=== PATIENT | male | born 1955 | race Caucasian/White ===

== ENCOUNTER 2016-12-25 17:32 | Emergency (ER) | payer OTHER ==
[~2016-12-25] VITALS: Ht 185.4 cm; Wt 78.0 kg
[~2016-12-25 17:32] MED LIST: DICL-201 PO; EPP3 IM; SULF500T36 PO
[2016-12-25 17:36] VITALS: TEMP 36.9; Ht 185.4 cm; Wt 78.0 kg
[2016-12-25] MEDS ORDERED: LIDOCAINE/PRILOCAINE 2.5% EA CRM EXT ONE (18:00)
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
--- NOTE | 2016-12-25 18:46 | DIAGNOSTIC IMAGING REPORT ---
LEFT WRIST MIN 3 VIEWS ROUTINE CLINICAL HISTORY: Left wrist pain COMPARISON: None. DISCUSSION: There is a severe deformity of the wrist. There is anterior and ulnar subluxation of the carpal bones with respect to the radius. The lunate is positioned anterior and proximal to the radial articular surface.. The age of this deformity is unclear from the provided images. Clinical correlation will be necessary. Erosive changes involving the radial articular surface and subtle radial ulnar joint. IMPRESSION: Severe deformity of the wrist with anterior and ulnar subluxation of the carpal bones with respect to the radius and ulna. The lunate is positioned anterior and proximal to the radial articular surface. The chronicity of this deformity is not known and clinical correlation will be necessary. Electronically signed by: Rishi Corey M.D. 12/25/2016 6:45 PM Dictated Date/Time: 12/25/2016 6:41 PM
[2016-12-25 18:59] LABS: ISTAT CREATININE 0.7 mg/dl (0.6-1.3); ISTAT HEMOGLOBIN 13.3 g/dl (14.0-18.0); ISTAT IONIZED CALCIUM 1.2 mmol/l (1.12-1.32)
[2016-12-25 19:03] LABS: BASO % 0.2 %; BASO ABS # 0.01 K/uL (0-0.2); COMPLETE YES; EOS % 2.6 %; HEMATOCRIT 39.3 % (42-52); LYMPH % 28.7 %; LYMPH ABS # 1.44 K/uL (1.2-3.4); MEAN CELL VOLUME 92.7 fL (80-100); MEAN CORPUSCULAR HEMOGLOBIN 32.3 pg (25-34); MEAN CORPUSCULAR HGB CONC 34.9 g/dl (32-36); MEAN PLATELET VOLUME 8.7 fL (7.4-10.4); MONO % 9.4 %; NEUT % 59.1 %; PLATELET COUNT 173 K/uL (130-400); RED BLOOD COUNT 4.24 M/uL (4.7-6.1); WHITE BLOOD COUNT 5.02 K/uL (4.8-10.8)
[2016-12-25] MEDS ORDERED: ACET1TAB84 PO (19:07)
[2016-12-25] MEDS ORDERED: B-CO1CAP17 PO (19:07)
[2016-12-25] MEDS ORDERED: FERR1TAB23 PO (19:07)
[2016-12-25] MEDS ORDERED: EPP3/2 IM (19:07)
[2016-12-25] MEDS ORDERED: FLAXOIL2 PO (19:07)
[2016-12-25] MEDS ORDERED: SULF500T8 PO (19:07)
[2016-12-25] MEDS ORDERED: OMEP40CA41 PO (19:07)
[2016-12-25] MEDS ORDERED: VITA400C3 PO (19:10)
[2016-12-25] MEDS ORDERED: CALC500T72 PO (19:10)
[2016-12-25] MEDS ORDERED: CHOL100027 PO (19:10)
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
[2016-12-25 19:30] LABS: BUN/CREATININE RATIO 17.4 (10-20); CALCIUM 8.7 mg/dl (8.5-10.1); CREATININE 0.72 mg/dl (0.60-1.40); POTASSIUM 4.1 mmol/L (3.5-5.1)
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
[2016-12-25 21:15] VITALS: BP 111/71; PULSE 80; O2SAT 98
== END 2016-12-25 21:17 | disposition home or self-care (01) ==
LOC: C.EDB 17:34
DX: S63.502A Unspecified sprain of left wrist, initial encounter (principal); S06.0X0A Concussion without loss of consciousness, initial encounter; S20.219A Contusion of unspecified front wall of thorax, initial encounter; Y04.8XXA Assault by other bodily force, initial encounter; Y92.89 Other specified places as the place of occurrence of the external cause; D64.9 Anemia, unspecified; M06.9 Rheumatoid arthritis, unspecified; Z79.899 Other long term (current) drug therapy

== ENCOUNTER → 2017-05-03 | Outpatient (CLI) | payer OTHER ==
[~2017-05-03] MED LIST changes: +ACET1TAB84 PO; +B-CO1CAP17 PO; +CALC500T72 PO; +CHOL100027 PO; -DICL-201 PO; -EPP3 IM; +EPP3/2 IM; +FERR1TAB23 PO; +FLAXOIL2 PO; +OMEP40CA41 PO; -SULF500T36 PO; +SULF500T8 PO; +VITA400C3 PO
[2017-05-03 12:24] LABS: BASO % 0.4 %; BASO ABS # 0.02 K/uL (0-0.2); COMPLETE YES; EOS % 2.1 %; HEMATOCRIT 40.3 % (42-52); IG% 0.2 %; LYMPH % 24.4 %; LYMPH ABS # 1.27 K/uL (1.2-3.4); MEAN CELL VOLUME 93.7 fL (80-100); MEAN CORPUSCULAR HGB CONC 35.2 g/dl (32-36); MEAN PLATELET VOLUME 8.9 fL (7.4-10.4); MONO % 10.2 %; NEUT % 62.7 %; PLATELET COUNT 181 K/uL (130-400); WHITE BLOOD COUNT 5.21 K/uL (4.8-10.8)
[2017-05-03 12:47] LABS: ALT/SGPT 31 U/L (12-78); BLOOD UREA NITROGEN 8 mg/dl (7-18); BUN/CREATININE RATIO 12.6 (10-20); CALCIUM 8.8 mg/dl (8.5-10.1); CARBON DIOXIDE 25 mmol/L (21-32); CHLORIDE 102 mmol/L (98-107); CREATININE 0.64 mg/dl (0.60-1.40); GLUCOSE 98 mg/dl (70-99); POTASSIUM 4.3 mmol/L (3.5-5.1); SODIUM 133 mmol/L (136-145)
[2017-05-03 12:57] LABS: ALB/GLOB RATIO 1.1 (0.9-2); ALKALINE PHOSPHATASE 69 U/L (45-117); AST/SGOT 24 U/L (15-37)
== END | disposition home or self-care (01) ==
LOC: C.LAB1850 09:24
PROVIDERS: ATTEND Internal Medicine
DX: K26.9 Duodenal ulcer, unspecified as acute or chronic, without hemorrhage or perforation (principal); M06.9 Rheumatoid arthritis, unspecified; E55.9 Vitamin D deficiency, unspecified; Z11.59 Encounter for screening for other viral diseases

== ENCOUNTER → 2017-10-03 | Outpatient (CLI) | payer OTHER ==
[2017-10-03 17:21] LABS: BASO % 0.8 %; BASO ABS # 0.05 K/uL (0-0.2); EOS % 3.2 %; EOS ABS # 0.19 K/uL (0-0.5); HEMATOCRIT 36.5 % (42-52); HEMOGLOBIN 12.3 g/dL (14.0-18.0); IG# 0.02 K/uL (0.00-0.02); LYMPH % 33.1 %; LYMPH ABS # 1.96 K/uL (1.2-3.4); MEAN CELL VOLUME 94.6 fL (80-100); MEAN CORPUSCULAR HEMOGLOBIN 31.9 pg (25-34); MEAN CORPUSCULAR HGB CONC 33.7 g/dl (32-36); MEAN PLATELET VOLUME 8.6 fL (7.4-10.4); MONO % 8.8 %; MONO ABS # 0.52 K/uL (0.11-0.59); NEUT % 53.8 %; NEUT ABS # 3.19 K/uL (1.4-6.5); PLATELET COUNT 222 K/uL (130-400); RED CELL DISTRIBUTION WIDTH CV 12.8 % (11.5-14.5); RED CELL DISTRIBUTION WIDTH SD 44.3 fL (36.4-46.3); WHITE BLOOD COUNT 5.93 K/uL (4.8-10.8)
[2017-10-03 17:43] LABS: ALBUMIN 3.3 gm/dl (3.4-5.0); ALT/SGPT 26 U/L (12-78); AST/SGOT 17 U/L (15-37); BLOOD UREA NITROGEN 11 mg/dl (7-18); CALCIUM 9.1 mg/dl (8.5-10.1); CARBON DIOXIDE 26 mmol/L (21-32); CREATININE 0.76 mg/dl (0.60-1.40); GLUCOSE 100 mg/dl (70-99); POTASSIUM 4.2 mmol/L (3.5-5.1); SODIUM 137 mmol/L (136-145)
[2017-10-03 17:52] LABS: ALKALINE PHOSPHATASE 82 U/L (45-117); TRANSFERRIN 211 mg/dl (200-360)
== END | disposition home or self-care (01) ==
LOC: C.LAB1850 15:19
PROVIDERS: ATTEND Internal Medicine
DX: D64.9 Anemia, unspecified (principal); E55.9 Vitamin D deficiency, unspecified; M06.9 Rheumatoid arthritis, unspecified

== ENCOUNTER 2024-07-16 18:48 | Inpatient (IN) ==
--- NOTE | 2024-07-16 19:19 | Emergency Department Note ---
Impression & Plan Syncope and collapse, SVT (supraventricular tachycardia), Acute hyponatremia, Elevated lactic acid level ED Provider Note HISTORY OF PRESENT ILLNESS: Patient is a 69-year-old male presenting after syncopal episode. Patient reports that he stood up to drink some water this evening when he felt very lightheaded like he was going to pass out. He reports that he stumbled into a chair and then slid to the ground, landing on his right hip. He states he was able to crawl to the phone to call 911. He denies any chest pain or shortness of breath. Denies losing consciousness. Denies striking his head or loss of consciousness. He states he has been having a "flareup" of his rheumatoid arthritis. He is not on any anticoagulation or antiplatelet therapies. Denies recent nausea, vomiting or diarrhea. Denies any fevers. ROS: as above PHYSICAL EXAM: Constitutional: Patient appears in no acute distress. HENT: Head: Normocephalic and atraumatic. Eyes: EOMI, PERRL Mouth/Throat: Mucous membranes moist. Neck: Trachea midline. Neck supple. Cardiovascular: Tachycardic with regular rhythm. No murmurs, rubs or gallops. Intact distal pulses. Pulmonary/Chest: No respiratory distress. Breath sounds clear and equal bilaterally. No wheezes or rales. Abdominal: Abdomen soft, no tenderness, rebound or guarding. Musculoskeletal: No edema, tenderness or deformity noted. Skin: Warm and dry. No rash, erythema, pallor or cyanosis Psychiatric: Appropriate mood and affect for situation. Neurological: Alert and keenly responsive. CN II-XII grossly intact MDM: - Vitals signs showed hypotension and tachycardia. - History obtained via patient. History as above. - 2 IVs were placed and patient was placed on practice billing associate with cardioversion pads in place. EKG obtained at 1905 interpreted by myself showed supraventricular tachycardia with a rate of 156 bpm. QT 286. No acute ischemic changes. I did discuss with the patient that he is hypotensive and tachycardic and it is indicated that he be electrically cardioverted. However, the patient did not wish to have IV ketamine for sedation or cardioversion at this time. He did request that we attempt chemical cardioversion with adenosine. Repeat blood pressure before adenosine administration was 97/62. Patient is alert and oriented and mentating well. He was given 6 mg of IV adenosine with no change in his persistent tachycardia. He was given a dose of 12 mg of adenosine and he cardioverted to normal sinus rhythm. Repeat EKG obtained at 2009 interpreted by myself showed normal sinus rhythm. Rate tachycardic at 111 bpm. QT 308. No acute ischemic changes. - Chronic conditions affecting care: rheumatoid arthritis; anemia - Differential diagnoses include, but are not limited to: Dysrhythmia; electrolyte abnormality; sepsis; UTI; pneumonia; viral syndrome - Order placed for continuous cardiac monitoring. At this time, monitor showed rate of 155 bpm with regular rhythm, per my interpretation. - External medical records reviewed. Primary care visit note dated 05/26/2024 was reviewed. Patient follows in their clinic for anemia and his other chronic medical problems. - Laboratory workup interpreted by myself showed leukocytosis (WBC 10.82); normal PT/INR; normal lactate; hyponatremia (Na 125); elevated lactate (2.5); normal troponin; normal CK; normal lipase; normal procalcitonin; elevated TSH with normal T4 - CXR negative for pneumonia, per my interpretation. - Viral respiratory panel negative - Blood cultures obtained - UA ordered - Patient's syncope may be secondary to his dysrhythmia of SVT. However, he is also hyponatremic. Will admit to hospital service for further evaluation. - Discussion was had with piano case and bench assembler about patient's case and need for admission - Hospitalist, Dr. Goldstein, consulted for admission [facility]. I have personally spent 61 minutes of critical care time in the direct management of this patient. This includes bedside care, interpretation of diagnostic studies, and testing, discussion with consultants, patient, and family members, and other required patient management activities. This 61 minutes is in excess of all separately billable procedures. ASSESSMENT AND PLAN: Diagnosis: syncope and collapse; SVT; acute hyponatremia; elevated lactic acid Plan: admit Past Med/Surg History Problem List (Updated 07/16/24 @ 22:12 by Phylicia Hope MD) Elevated lactic acid level (Acute) Acute hyponatremia (Acute) SVT (supraventricular tachycardia) (Acute) Syncope and collapse (Acute) Sensorineural hearing loss (SNHL) of both ears Rash, skin Health care maintenance Hyperglycemia Deformity of left ankle joint Anemia (Acute) Anxiety (Acute) Colon cancer screening (Acute) Decreased hearing (Acute) History of duodenal ulcer (Acute) History of upper gastrointestinal hemorrhage (Acute) Rheumatoid arthritis (Acute) Vitamin D deficiency disease (Acute) Medical History Encounter for screening laboratory testing for COVID-19 virus Left ankle pain Foreign body in ear Otitis externa Duodenal ulcer History of duodenal ulcer Anxiety Left wrist sprain GI bleed Concussion Anemia Rheumatoid arthritis Surgical History S/P tooth extraction S/P appendectomy Family History Mother Diabetes Hypertension Stroke Father Rheumatic arteritis Neoplasm of esophagus Sister Allergy Social History Smoking Status: Never smoker Hx Alcohol Use: No Hx Substance Use: No marital status: Single Current Living Situation: Alone current occupational status: retired Feels Safe at Home: Yes Seatbelt Use: always Allergies Allergies Allergy/AdvReac Type Severity Reaction Status Date / Time Corticosteroids Allergy Mild ANAPHYLAXIS Verified 05/26/24 13:50 (Glucocorticoids) wheat Allergy Mild ANAPHYLAXIS Verified 05/26/24 13:50 orange flavor Allergy Unknown Verified 05/26/24 13:50 NSAIDS (Non-Steroidal AdvReac Intermediate Verified 06/30/24 11:39 Anti-Inflamma BEES Allergy Mild ANAPHYLAXIS Uncoded 05/26/24 13:50 SOY Allergy Mild ANAPHYLAXIS Uncoded 05/26/24 13:50 [place] Oil OIL Allergy Unknown Uncoded 05/26/24 13:50 Home Meds Home Medications Medication Instructions Recorded Confirmed ascorbate calcium (vitamin C) 500 1 gm PO DAILY 03/01/19 05/26/24 mg tablet cholecalciferol (vitamin D3) 50 6,000 units PO DAILY 03/01/19 05/26/24 mcg (2,000 unit) capsule ferrous sulfate 325 mg (65 mg 650 mg PO DAILY 03/01/19 05/26/24 iron) tablet flaxseed oil 15 - 45 ml miscellaneous DAILY 03/01/19 05/26/24 multivitamin (Daily Multi-Vitamin 1 tab PO DAILY 03/01/19 05/26/24 tablet) vitamin B complex (B 2 tab PO DAILY 03/01/19 05/26/24 Complex-Vitamin B12 tablet) vitamin E (dl, acetate) 180 mg 400 units PO DAILY 03/01/19 05/26/24 (400 unit) capsule chlorophyllin-alfalfa 20 mg-100 mg tab PO BID 03/12/23 05/26/24 tablet (Chlorophyll (with alfalfa)) Previous Rx's Medication Instructions Recorded epinephrine 0.3 mg/0.3 mL 0.3 mg (0.3 mL) IM UD PRN 11/06/22 injection, auto-injector (EpiPen) anaphylaxis #2 ea lidocaine-prilocaine 2.5 %-2.5 % 1 applic topical .COMPLEX PRN for 07/16/24 topical cream injection site, blood sugar fingersticks #30 grams sulfasalazine 500 mg tablet 0.5 g PO BID #60 tabs 07/16/24 Results & Data (ED) Vital Signs Vital Signs - 24 hr 07/16/24 18:59 07/16/24 19:36 07/16/24 19:42 Temperature 37.2 C Temperature Source Oral Pulse Rate 159 H 157 H Pulse Rate [Apical] 153 H Respiratory Rate 18 18 Respiratory Effort / Characteristics Non-Labored Spontaneous Blood Pressure 85/69 L Blood Pressure [Right Arm] 87/72 L Blood Pressure Mean 74 Blood Pressure Mean [Right Arm] 77 Blood Pressure Position Lying Blood Pressure Position [Right Arm] Lying Pulse Oximetry 97 98 Oxygen Delivery Method Room Air Room Air Oxygen Flow Rate Sepsis Recent Fever Within 48 Hours No Sepsis New/Unexplained Change in Mental Status No Sepsis Action Taken by Nursing Physician Notified 07/16/24 19:42 07/16/24 19:42 07/16/24 20:09 Temperature Temperature Source Pulse Rate 157 H 123 H Pulse Rate [Apical] Respiratory Rate 18 Respiratory Effort / Characteristics Blood Pressure Blood Pressure [Right Arm] Blood Pressure Mean Blood Pressure Mean [Right Arm] Blood Pressure Position Blood Pressure Position [Right Arm] Pulse Oximetry 97 97 Oxygen Delivery Method Room Air Room Air Oxygen Flow Rate Sepsis Recent Fever Within 48 Hours Sepsis New/Unexplained Change in Mental Status Sepsis Action Taken by Nursing 07/16/24 20:17 07/16/24 20:30 07/16/24 22:00 Temperature Temperature Source Pulse Rate 101 H Pulse Rate [Apical] 102 H 95 H Respiratory Rate 18 18 Respiratory Effort / Characteristics Non-Labored Spontaneous Non-Labored Spontaneous Blood Pressure Blood Pressure [Right Arm] 94/74 L 99/64 L Blood Pressure Mean Blood Pressure Mean [Right Arm] 80 75 Blood Pressure Position Blood Pressure Position [Right Arm] Lying Lying Pulse Oximetry 97 99 Oxygen Delivery Method Nasal Cannula Room Air Oxygen Flow Rate 2 Sepsis Recent Fever Within 48 Hours Sepsis New/Unexplained Change in Mental Status Sepsis Action Taken by Nursing Laboratory Data 07/16/24 19:12 07/16/24 19:12 Lab Results 07/16/24 07/16/24 07/16/24 Range/Units 19:12 19:19 21:42 WBC 10.82 H (4.8-10.8) K/ul RBC 4.13 L (4.70-6.10) M/uL Hgb 11.9 L (14.0-18.0) g/dl POC Hgb 12.2 L (14.0-18.0) g/dl Hct 35.8 L (42.0-52.0) % POC Hct 36 L (42-52) % MCV 86.7 (80.0-100.0) fL MCH 28.8 (25.0-34.0) pg MCHC 33.2 (32.0-36.0) g/dL RDW Std Deviation 41.1 (36.4-46.3) fL RDW Coeff of Carolyn 13.1 (11.5-14.5) % Plt Count 302 (130-400) K/uL MPV 8.0 L (9.4-12.4) fL Immature Gran % (Auto) 0.6 % Neut % (Auto) 82.5 % Lymph % (Auto) 8.5 % Dixon % (Auto) 7.2 % Eos % (Auto) 0.9 % Baso % (Auto) 0.3 % Neut # (Auto) 8.93 H (1.40-6.50) K/uL Lymph # (Auto) 0.92 L (1.20-3.40) K/uL Dixon # (Auto) 0.78 H (0.11-0.59) K/uL Eos # (Auto) 0.10 (0.00-0.50) K/uL Baso # (Auto) 0.03 (0.00-0.20) K/uL Immature Gran # (Auto) 0.06 (0.01-0.20) K/uL PT 10.3 (9.0-12.0) Seconds INR 0.9 (0.9-1.1) APTT 30 (21-31) Seconds PTT Ratio 1.1 POC Sodium 124 L (135-144) mmol/L Sodium 125 L (136-145) mmol/L POC Potassium 4.3 (3.3-5.0) mmol/L Potassium 4.3 (3.5-5.1) mmol/L POC Chloride 90 L (101-112) mmol/L Chloride 92 L (98-107) mmol/L Carbon Dioxide 23 (21-32) mmol/L POC Total CO2 22 L (24-31) mmol/L Anion Gap 10 (3-11) POC Anion Gap 18.0 (16-25) mmol/L POC BUN 5 L (7-18) mg/dl BUN 7 (6-23) mg/dl Creatinine 0.65 (0.6-1.4) mg/dl POC Creatinine 0.7 (0.6-1.3) mg/dl Est Cr Clr Drug Dosing 116.1 ml/min eGFR 101.37 BUN/Creatinine Ratio 10.8 (10-20) Glucose 154 H (70-99(Fasting)) mg/dl POC Glucose (other) 150 H (70-99) mg/dl Lactate 2.5 H* 1.3 (0.4-2.0) mmol/L Calcium 8.7 (8.6-10.3) mg/dl POC Ioniz Calcium Evi 1.10 L (1.12-1.32) mmol/l Magnesium 1.8 (1.7-2.4) mg/dl Total Bilirubin 0.3 (0.2-1.0) mg/dl AST 24 (13-39) U/L ALT 20 (7-52) U/L Alkaline Phosphatase 67 (34-104) U/L Total Creatine Kinase 56 (30-223) U/L Troponin I High Sens 18.4 (0-20) pg/ml Total Protein 6.2 (6.0-8.3) gm/dl Albumin 3.2 L (3.4-5.0) gm/dl Globulin 3.0 (2.5-4.0) gm/dl Albumin/Globulin Ratio 1.1 (0.9-2) Lipase 19 (11-82) U/L Procalcitonin 0.03 (0-0.5) ng/ml TSH 4.764 H (0.300-4.500) uIu/ml Free T4 1.18 (0.61-1.60) ng/dl Adenovirus (PCR) Not Detected (NotDetected) B. pertussis DNA (PCR) Not Detected (NotDetected) B.parapertussis DNA PCR Not Detected (NotDetected) C. pneumoniae DNA (PCR) Not Detected (NotDetected) Coronavirus OC43 (PCR) Not Detected (NotDetected) Coronavirus HKU1 (PCR) Not Detected (NotDetected) Coronavirus 229E (PCR) Not Detected (NotDetected) SARS-CoV-2 (PCR) Not Detected (NotDetected) Coronavirus NL63 (PCR) Not Detected (NotDetected) Human Metapneumovir PCR Not Detected (NotDetected) Influenza Type A (PCR) Not Detected (NotDetected) Influenza Type B (PCR) Not Detected (NotDetected) M. pneumoniae (PCR) Not Detected (NotDetected) Parainfluenza 1 (PCR) Not Detected (NotDetected) Parainfluenza 2 (PCR) Not Detected (NotDetected) Parainfluenza 3 (PCR) Not Detected (NotDetected) Parainfluenza 4 (PCR) Not Detected (NotDetected) RSV (PCR) Not Detected (NotDetected) Entero/Rhino (PCR) Not Detected (NotDetected) Administered Medications Discontinued Medications Adenosine (Adenosine Iv Soln 3 Mg/Ml 2 Ml Vial) Confirm Administered Dose 18 mg IV .STK-MED ONE Stop: 07/16/24 20:03 Last Admin: 07/16/24 21:48 Dose: Not Given Documented By: PHUONG Adenosine (Adenosine Iv Soln 3 Mg/Ml 2 Ml Vial) 6 mg IV NOW STA Stop: 07/16/24 21:46 Last Admin: 07/16/24 21:59 Dose: 6 mg Documented By: PHUONG Adenosine (Adenosine Iv Soln 3 Mg/Ml 2 Ml Vial) 12 mg IV NOW STA Stop: 07/16/24 21:46 Last Admin: 07/16/24 22:00 Dose: 12 mg Documented By: PHUONG Imaging Data Radiologist's Impression: Chest X-Ray 07/16/24 19:13 Exam(s): XR CXR 1 VIEW EXAM: XR Chest, 1 View CLINICAL HISTORY: Reason for exam: Sepsis. TECHNIQUE: Frontal view of the chest. COMPARISON: No relevant prior studies available. FINDINGS: Lungs: Unremarkable. No consolidation. Pleural space: Unremarkable. No pneumothorax. Heart: Unremarkable. No cardiomegaly. Mediastinum: Unremarkable. Normal mediastinal contour. Bones/joints: Unremarkable. No acute fracture. IMPRESSION: Normal chest x-ray. Electronically signed by: Adam Morgan MD 07/16/24 21:07 PM Discharge Plan Visit Data Chief Complaint: Syncope ED Provider: Phylicia Hope Discharge Problem: Syncope and collapse, SVT (supraventricular tachycardia), Acute hyponatremia, Elevated lactic acid level Forms Stand Alone Forms: [facility] [place] [employer] [facility] Prescriptions Prescriptions: No Action lidocaine-prilocaine 2.5-2.5 % cream 1 applic topical .COMPLEX PRN (Reason: for injection site, blood sugar fingersticks) Qty: 30 3RF Rx Instructions: 1 applic topically PRN; sulfasalazine 500 mg tablet 0.5 g PO BID Qty: 60 0RF epinephrine [EpiPen] 0.3 mg/0.3 mL auto-injector 0.3 mg IM UD PRN (Reason: anaphylaxis) Qty: 2 0RF vitamin B complex [B Complex-Vitamin B12] tablet 2 tab PO DAILY flaxseed oil oil 15 - 45 ml miscellaneous DAILY ferrous sulfate 325 mg (65 mg iron) tablet 650 mg PO DAILY multivitamin [Daily Multi-Vitamin] tablet 1 tab PO DAILY ascorbate calcium (vitamin C) 500 mg tablet 1 gm PO DAILY cholecalciferol (vitamin D3) 2,000 unit capsule 6,000 units PO DAILY vitamin E (dl, acetate) 400 unit capsule 400 units PO DAILY Chlorophyll (with alfalfa) 20-100 mg tablet 1 tab PO BID Referrals Referrals: Steffanie Desai MD [Primary Care Provider] -
[2024-07-16 19:31] LABS: iSTAT Creatinine 0.7 mg/dl (0.6-1.3); iSTAT Hemoglobin 12.2 g/dl (14.0-18.0); iSTAT Ionized Calcium 1.1 mmol/l (1.12-1.32); iSTAT Potassium 4.3 mmol/L (3.3-5.0)
[2024-07-16 19:32] LABS: Basophils # (auto) 0.03 K/uL (0.00-0.20); Basophils % (auto) 0.3 %; Eosinophils % (auto) 0.9 %; Hematocrit (blood only) 35.8 % (42.0-52.0); Hemoglobin 11.9 g/dl (14.0-18.0); Immature Granulocytes # (auto) 0.06 K/uL (0.01-0.20); Immature Granulocytes % (auto) 0.6 %; Lymphocytes # (auto) 0.92 K/uL (1.20-3.40); Lymphocytes % (auto) 8.5 %; Mean Corpuscular Hemoglobin 28.8 pg (25.0-34.0); Mean Corpuscular Hgb Conc 33.2 g/dL (32.0-36.0); Mean Corpuscular Volume 86.7 fL (80.0-100.0); Monocytes # (auto) 0.78 K/uL (0.11-0.59); Monocytes % (auto) 7.2 %; Neutrophils # (auto) 8.93 K/uL (1.40-6.50); Neutrophils % (auto) 82.5 %; Platelet Count 302 K/uL (130-400); RDW Coefficient of Variation 13.1 % (11.5-14.5); RDW Standard Deviation 41.1 fL (36.4-46.3); Red Blood Count 4.13 M/uL (4.70-6.10); White Blood Count 10.82 K/ul (4.8-10.8)
[2024-07-16 19:47] LABS: Albumin Globulin Ratio 1.1 (0.9-2); Albumin Level 3.2 gm/dl (3.4-5.0); BUN Creatinine Ratio 10.8 (10-20); Bilirubin,Total 0.3 mg/dl (0.2-1.0); Calcium 8.7 mg/dl (8.6-10.3); Creatinine Clr Calc Pharmacy 116.1 ml/min; Magnesium 1.8 mg/dl (1.7-2.4); Potassium 4.3 mmol/L (3.5-5.1); Total Protein 6.2 gm/dl (6.0-8.3)
[2024-07-16 19:54] LABS: Troponin I High Sensitivity 18.4 pg/ml (0-20)
[2024-07-16 20:03] LABS: Thyroid Stimulating Hormone 4.764 uIu/ml (0.300-4.500)
[2024-07-16 20:07] LABS: INR 0.9 (0.9-1.1); Partial Thromboplastin Ratio 1.1; Partial Thromboplastin Time 30 Seconds (21-31); Prothrombin Time 10.3 Seconds (9.0-12.0)
[2024-07-16 20:16] LABS: Adenovirus PCR Not Detected (NotDetected); Bordetella parapertussis PCR Not Detected (NotDetected); Bordetella pertussis PCR Not Detected (NotDetected); Chlamydia pneumoniae PCR Not Detected (NotDetected); Coronavirus 229E PCR Not Detected (NotDetected); Coronavirus CoV-2 (COVID19)PCR Not Detected (NotDetected); Coronavirus HKU1 PCR Not Detected (NotDetected); Coronavirus NL63 PCR Not Detected (NotDetected); Coronavirus OC43PCR Not Detected (NotDetected); Human Metapneumovirus PCR Not Detected (NotDetected); Influenza A PCR Not Detected (NotDetected); Influenza B PCR Not Detected (NotDetected); Mycoplasma pneumoniae PCR Not Detected (NotDetected); Parainfluenza Virus 1 PCR Not Detected (NotDetected); Parainfluenza Virus 2 PCR Not Detected (NotDetected); Parainfluenza Virus 3 PCR Not Detected (NotDetected); Parainfluenza Virus 4 PCR Not Detected (NotDetected); Respiratory Syncytial VirusPCR Not Detected (NotDetected); Rhinovirus/Enterovirus PCR Not Detected (NotDetected)
[2024-07-16 20:38] LABS: T4 Free Thyroxine 1.18 ng/dl (0.61-1.60)
--- NOTE | 2024-07-16 21:07 | XRay Report ---
Exam(s): XR CXR 1 VIEW EXAM: XR Chest, 1 View CLINICAL HISTORY: Reason for exam: Sepsis. TECHNIQUE: Frontal view of the chest. COMPARISON: No relevant prior studies available. FINDINGS: Lungs: Unremarkable. No consolidation. Pleural space: Unremarkable. No pneumothorax. Heart: Unremarkable. No cardiomegaly. Mediastinum: Unremarkable. Normal mediastinal contour. Bones/joints: Unremarkable. No acute fracture. IMPRESSION: Normal chest x-ray. Electronically signed by: Adam Morgan MD 07/16/24 21:07 PM
[2024-07-16] MEDS: ADENOSINE IV SOLN 3 MG/ML 2 ML VIAL IV ONE (21:48)
[2024-07-16] MEDS: ADENOSINE IV SOLN 3 MG/ML 2 ML VIAL IV STA ×2 (21:59→22:00)
--- NOTE | 2024-07-16 22:45 | History & Physical Report ---
Date of Service July 16, 2024 Assessment & Plan (1) Near syncope: (2) SVT (supraventricular tachycardia): (3) Acute hyponatremia: (4) Anxiety: (5) Rheumatoid arthritis: Plan The patient is a 69-year-old male with past medical history including SNHL bilaterally, anemia, anxiety, rheumatoid arthritis, history of duodenal ulcer, history of upper GI hemorrhage, and vitamin D deficiency. He presents to the emergency department after symptoms as noted above. While in the emergency department, he was found to be in SVT 150, received adenosine 6 then 12 mg IV, with conversion to normal sinus rhythm. He was then referred for evaluation for admission The patient presents to the emergency department after a near syncopal episode earlier today, with the patient felt lightheaded and dizzy, like he was almost going to pass out, but did have some improvement with some water. He reports that he did gently lowered himself to the ground, landing on his right hip, and was able to crawl to the phone to call 911. He reports that his symptoms of rheumatoid arthritis have been worse lately since he has been experimenting more with expanding his food intake eating more red meats and seafood such as shrimp, which have given him problems in the past. He feels his symptoms today are related to anemia, and worsening of RA symptoms of generalized weakness as noted. He does take regular amounts of vitamins, which she has backed off on somewhat recently as well. He had been on high doses of sulfasalazine, but had been concerned regarding potential side effects, and the dose has been cut in half. #Near syncope- Differential including most likely SVT, dehydration, anemia, anxiety, The patient will be admitted to telemetry for serial cardiac enzymes, serial EKG's, cardiac rhythm monitoring and a 2-D echocardiogram with Dopplers. SVT- EKG notes rate of 150 He did receive adenosine 6 mg IV, then 12 mg IV from the ED with conversion to sinus rhythm Gave magnesium sulfate 1 mg IV Albumin 25 g IV for albumin of 3.2 Give NSS at 80 mL/h x 1 L Rheumatoid arthritis- Patient has been reluctant to use sulfasalazine at higher doses due to concerns regarding side effects He tries to optimize his treatment with a number of herbal vitamins He reports that recently his been trying to eat increased red meats and shrimp, which he knows is giving him problems in the past, and likely has contributed his symptoms now He can continue his usual supplements Continue sulfasalazine 0.5 mg p.o. twice daily He reports that due to insurance change he has had to have his ironer hand changed from Dr. De Dios to Dr. Massey, but he reports he has been too sick to get into see him over the past few months Patient also consider appointment with Dr. Tejeda to go over nutritional aspects History of Present Illness Chief Complaint: The patient presents to the emergency department after a near syncopal episode earlier today, with the patient felt lightheaded and dizzy, like he was almost going to pass out, but did have some improvement with some water. He reports that he did gently lowered himself to the ground, landing on his right hip, and was able to crawl to the phone to call 911. He reports that his symptoms of rheumatoid arthritis have been worse lately since he has been experimenting more with expanding his food intake eating more red meats and seafood such as shrimp, which have given him problems in the past. He feels his symptoms today are related to anemia, and worsening of RA symptoms of generalized weakness as noted. He does take regular amounts of vitamins, which she has backed off on somewhat recently as well. He had been on high doses of sulfasalazine, but had been concerned regarding potential side effects, and the dose has been cut in half. Primary Care Provider: Steffanie Desai MD The patient is a 69-year-old male with past medical history including SNHL bilaterally, anemia, anxiety, rheumatoid arthritis, history of duodenal ulcer, history of upper GI hemorrhage, and vitamin D deficiency. He presents to the emergency department after symptoms as noted above. While in the emergency department, he was found to be in SVT 150, received adenosine 6 then 12 mg IV, with conversion to normal sinus rhythm. He was then referred for evaluation for admission Allergies Allergy/AdvReac Type Severity Reaction Status Date / Time bee venom protein (honey bee) Allergy Mild Anaphylaxis Verified 07/16/24 22:50 Corticosteroids Allergy Mild ANAPHYLAXIS Verified 05/26/24 13:50 (Glucocorticoids) soy Allergy Mild Anaphylaxis Verified 07/16/24 22:50 wheat Allergy Mild ANAPHYLAXIS Verified 05/26/24 13:50 olive oil Allergy Unknown Unknown Verified 07/16/24 22:50 orange flavor Allergy Unknown Unknown Verified 07/16/24 22:50 NSAIDS (Non-Steroidal AdvReac Intermediate BLEEDING Verified 07/16/24 22:50 Anti-Inflamma Home Medications Medication Instructions Recorded Confirmed Type ascorbate calcium (vitamin C) 500 1 gm PO DAILY 03/01/19 07/16/24 History mg tablet cholecalciferol (vitamin D3) 50 6,000 units PO DAILY 03/01/19 07/16/24 History mcg (2,000 unit) capsule ferrous sulfate 325 mg (65 mg 650 mg PO DAILY 03/01/19 07/16/24 History iron) tablet flaxseed oil 15 - 45 ml miscellaneous DAILY 03/01/19 07/16/24 History multivitamin (Daily Multi-Vitamin 1 tab PO DAILY 03/01/19 07/16/24 History tablet) vitamin E (dl, acetate) 180 mg 400 units PO DAILY 03/01/19 07/16/24 History (400 unit) capsule epinephrine 0.3 mg/0.3 mL 0.3 mg (0.3 mL) IM UD PRN 11/06/22 07/16/24 Rx injection, auto-injector (EpiPen) anaphylaxis #2 ea chlorophyllin-alfalfa 20 mg-100 mg 1 tab PO BID 03/12/23 07/16/24 History tablet (Chlorophyll (with alfalfa)) lidocaine-prilocaine 2.5 %-2.5 % 1 applic topical .COMPLEX PRN for 07/16/24 07/16/24 Rx topical cream injection site, blood sugar fingersticks #30 grams sulfasalazine 500 mg tablet 0.5 g PO BID #60 tabs 07/16/24 07/16/24 Rx vitamin B complex 1 tab PO DAILY 07/16/24 07/16/24 History Past Med/Surg History Problem List (Updated 07/17/24 @ 05:48 by Deven Goldstein MD) Near syncope Elevated lactic acid level (Acute) Acute hyponatremia (Acute) SVT (supraventricular tachycardia) (Acute) Syncope and collapse (Acute) Sensorineural hearing loss (SNHL) of both ears Rash, skin Health care maintenance Hyperglycemia Deformity of left ankle joint Anemia (Acute) Anxiety (Acute) Colon cancer screening (Acute) Decreased hearing (Acute) History of duodenal ulcer (Acute) History of upper gastrointestinal hemorrhage (Acute) Rheumatoid arthritis (Acute) Vitamin D deficiency disease (Acute) Medical History Encounter for screening laboratory testing for COVID-19 virus Left ankle pain Foreign body in ear Otitis externa Duodenal ulcer History of duodenal ulcer Anxiety Left wrist sprain GI bleed Concussion Anemia Rheumatoid arthritis Surgical History S/P tooth extraction S/P appendectomy Family History Mother Diabetes Hypertension Stroke Father Rheumatic arteritis Neoplasm of esophagus Sister Allergy Social History Smoking Status: Former smoker Hx Alcohol Use: No Hx Substance Use: No Preferred Language: French Communication Ability: Effective General Production Manager Required: No Beliefs That Will Affect Care: None marital status: Single Current Living Situation: Alone current occupational status: retired Other Information That Helps Us Care for You: No Feels Safe at Home: Yes Safety Concerns: Feels Safe At This Time Seatbelt Use: always Assistive Devices: Glasses and Walker Review of Systems Review of Systems: The patient denies chest pain, palpitations, shortness of breath, dyspnea on exertion, cough, lower extremity swelling, sore throat, fevers, chills, sweats, weight change, fatigue, nausea, vomiting, diarrhea , constipation, abdominal pain, pelvic pain, blood in urine or stool, dysuria, memory loss, loss of consciousness, rash, abnormal bruising or bleeding, back or neck pain, or night sweats. The review of systems is otherwise negative other than for that already noted above, and at least 10 systems have been reviewed. Physical Exam Physical Exam: The patient is awake, alert and oriented 3, well developed and well nourished, normocephalic and atraumatic, lying in bed and in no acute distress. HEENT--PERRL, EOMI, mucous membranes and oropharynx mildly dry. Neck--supple. No JVD. No bruits. Thyroid normal, trachea midline, no adenopathy. Heart--normal S1 and S2. No murmurs, rubs or gallops. Lungs--clear bilaterally, no respiratory distress, no accessory muscle use. Abdomen--normal bowel sounds and soft. Nontender. Nondistended, no hernias or masses, no organomegaly. Extremities--no cyanosis or clubbing. No edema. There are good distal pulses b/l. Dermatologic--normal skin turgor, normal color, no abnormal lymph nodes, no rash. Neurologic--cranial nerves II through XII grossly intact. Rheumatologic--normal range of motion. Psychiatric--normal affect. Results & Data Results & Data Vital Signs (Past 12 Hours) Vital Signs Temp Pulse Pulse Resp BP BP Pulse Ox 07/16/24 22:00 95 H 18 99/64 L 99 07/16/24 20:30 101 H 07/16/24 20:17 102 H 18 94/74 L 97 07/16/24 20:09 123 H 07/16/24 19:42 157 H 18 97 07/16/24 19:42 97 07/16/24 19:42 153 H 18 87/72 L 98 07/16/24 19:36 37.2 C 157 H 18 85/69 L 97 07/16/24 18:59 159 H O2 Del Method O2 Flow Rate 07/16/24 22:00 Room Air 07/16/24 20:30 07/16/24 20:17 Nasal Cannula 2 07/16/24 20:09 07/16/24 19:42 Room Air 07/16/24 19:42 Room Air 07/16/24 19:42 Room Air 07/16/24 19:36 Room Air 07/16/24 18:59 Laboratory Results Laboratory Results WBC 10.82 K/ul (4.8-10.8) H 07/16/24 19:12 RBC 4.13 M/uL (4.70-6.10) L 07/16/24 19:12 Hgb 11.9 g/dl (14.0-18.0) L 07/16/24 19:12 POC Hgb 12.2 g/dl (14.0-18.0) L 07/16/24 19:19 Hct 35.8 % (42.0-52.0) L 07/16/24 19:12 POC Hct 36 % (42-52) L 07/16/24 19:19 MCV 86.7 fL (80.0-100.0) 07/16/24 19:12 MCH 28.8 pg (25.0-34.0) 07/16/24 19:12 MCHC 33.2 g/dL (32.0-36.0) 07/16/24 19:12 RDW Std Deviation 41.1 fL (36.4-46.3) 07/16/24 19:12 RDW Coeff of Carolyn 13.1 % (11.5-14.5) 07/16/24 19:12 Plt Count 302 K/uL (130-400) 07/16/24 19:12 MPV 8.0 fL (9.4-12.4) L 07/16/24 19:12 Immature Gran % (Auto) 0.6 % 07/16/24 19:12 Neut % (Auto) 82.5 % 07/16/24 19:12 Lymph % (Auto) 8.5 % 07/16/24 19:12 [place] % (Auto) 7.2 % 07/16/24 19:12 Eos % (Auto) 0.9 % 07/16/24 19:12 Baso % (Auto) 0.3 % 07/16/24 19:12 Neut # (Auto) 8.93 K/uL (1.40-6.50) H 07/16/24 19:12 Lymph # (Auto) 0.92 K/uL (1.20-3.40) L 07/16/24 19:12 [place] # (Auto) 0.78 K/uL (0.11-0.59) H 07/16/24 19:12 Eos # (Auto) 0.10 K/uL (0.00-0.50) 07/16/24 19:12 Baso # (Auto) 0.03 K/uL (0.00-0.20) 07/16/24 19:12 Immature Gran # (Auto) 0.06 K/uL (0.01-0.20) 07/16/24 19:12 PT 10.3 Seconds (9.0-12.0) 07/16/24 19:12 INR 0.9 (0.9-1.1) 07/16/24 19:12 APTT 30 Seconds (21-31) 07/16/24 19:12 PTT Ratio 1.1 07/16/24 19:12 POC Sodium 124 mmol/L (135-144) L 07/16/24 19:19 Sodium 125 mmol/L (136-145) L 07/16/24 19:12 POC Potassium 4.3 mmol/L (3.3-5.0) 07/16/24 19:19 Potassium 4.3 mmol/L (3.5-5.1) 07/16/24 19:12 POC Chloride 90 mmol/L (101-112) L 07/16/24 19:19 Chloride 92 mmol/L (98-107) L 07/16/24 19:12 Carbon Dioxide 23 mmol/L (21-32) 07/16/24 19:12 POC Total CO2 22 mmol/L (24-31) L 07/16/24 19:19 Anion Gap 10 (3-11) 07/16/24 19:12 POC Anion Gap 18.0 mmol/L (16-25) 07/16/24 19:19 POC BUN 5 mg/dl (7-18) L 07/16/24 19:19 BUN 7 mg/dl (6-23) 07/16/24 19:12 Creatinine 0.65 mg/dl (0.6-1.4) 07/16/24 19:12 POC Creatinine 0.7 mg/dl (0.6-1.3) 07/16/24 19:19 Est Cr Clr Drug Dosing 116.1 ml/min 07/16/24 19:12 eGFR 101.37 07/16/24 19:12 BUN/Creatinine Ratio 10.8 (10-20) 07/16/24 19:12 Glucose 154 mg/dl (70-99(Fasting)) H 07/16/24 19:12 POC Glucose (other) 150 mg/dl (70-99) H 07/16/24 19:19 Lactate 1.3 mmol/L (0.4-2.0) 07/16/24 21:42 Calcium 8.7 mg/dl (8.6-10.3) 07/16/24 19:12 POC Ioniz Calcium Evi 1.10 mmol/l (1.12-1.32) L 07/16/24 19:19 Magnesium 1.8 mg/dl (1.7-2.4) 07/16/24 19:12 Total Bilirubin 0.3 mg/dl (0.2-1.0) 07/16/24 19:12 AST 24 U/L (13-39) 07/16/24 19:12 ALT 20 U/L (7-52) 07/16/24 19:12 Alkaline Phosphatase 67 U/L (34-104) 07/16/24 19:12 Total Creatine Kinase 56 U/L (30-223) 07/16/24 19:12 Troponin I High Sens 18.4 pg/ml (0-20) 07/16/24 19:12 Total Protein 6.2 gm/dl (6.0-8.3) 07/16/24 19:12 Albumin 3.2 gm/dl (3.4-5.0) L 07/16/24 19:12 Globulin 3.0 gm/dl (2.5-4.0) 07/16/24 19:12 Albumin/Globulin Ratio 1.1 (0.9-2) 07/16/24 19:12 Lipase 19 U/L (11-82) 07/16/24 19:12 Procalcitonin 0.03 ng/ml (0-0.5) 07/16/24 19:12 TSH 4.764 uIu/ml (0.300-4.500) H 07/16/24 19:12 Free T4 1.18 ng/dl (0.61-1.60) 07/16/24 19:12 Adenovirus (PCR) Not Detected (NotDetected) 07/16/24 19:12 B. pertussis DNA (PCR) Not Detected (NotDetected) 07/16/24 19:12 B.parapertussis DNA PCR Not Detected (NotDetected) 07/16/24 19:12 C. pneumoniae DNA (PCR) Not Detected (NotDetected) 07/16/24 19:12 Coronavirus OC43 (PCR) Not Detected (NotDetected) 07/16/24 19:12 Coronavirus HKU1 (PCR) Not Detected (NotDetected) 07/16/24 19:12 Coronavirus 229E (PCR) Not Detected (NotDetected) 07/16/24 19:12 SARS-CoV-2 (PCR) Not Detected (NotDetected) 07/16/24 19:12 Coronavirus NL63 (PCR) Not Detected (NotDetected) 07/16/24 19:12 Human Metapneumovir PCR Not Detected (NotDetected) 07/16/24 19:12 Influenza Type A (PCR) Not Detected (NotDetected) 07/16/24 19:12 Influenza Type B (PCR) Not Detected (NotDetected) 07/16/24 19:12 M. pneumoniae (PCR) Not Detected (NotDetected) 07/16/24 19:12 Parainfluenza 1 (PCR) Not Detected (NotDetected) 07/16/24 19:12 Parainfluenza 2 (PCR) Not Detected (NotDetected) 07/16/24 19:12 Parainfluenza 3 (PCR) Not Detected (NotDetected) 07/16/24 19:12 Parainfluenza 4 (PCR) Not Detected (NotDetected) 07/16/24 19:12 RSV (PCR) Not Detected (NotDetected) 07/16/24 19:12 Entero/Rhino (PCR) Not Detected (NotDetected) 07/16/24 19:12 Impressions Chest X-Ray 07/16/24 19:13 Exam(s): XR CXR 1 VIEW EXAM: XR Chest, 1 View CLINICAL HISTORY: Reason for exam: Sepsis. TECHNIQUE: Frontal view of the chest. COMPARISON: No relevant prior studies available. FINDINGS: Lungs: Unremarkable. No consolidation. Pleural space: Unremarkable. No pneumothorax. Heart: Unremarkable. No cardiomegaly. Mediastinum: Unremarkable. Normal mediastinal contour. Bones/joints: Unremarkable. No acute fracture. IMPRESSION: Normal chest x-ray. Electronically signed by: Adam Morgan MD 07/16/24 21:07 PM Code Status & VTE Plan Code Status Full code VTE Prophylaxis Plan VTE Prophylaxis will be ordered: Yes PG Care Time/CCT Total # of Minutes Spent Total Time Spent with Patient: Total time spent is greater than 50% in coordination of care (as documented) at patient's floor/unit and/or counseling patient: Coding Level of Care Code 61327 INT INP/OBS CARE 3/75MIN Diagnoses Near syncope R55 SVT (supraventricular tachycardia) I47.10 Acute hyponatremia E87.1 Anxiety F41.9 Rheumatoid arthritis M06.9
[2024-07-16] MEDS: KETAMINE HCL 10MG/ML SYR ONE (22:52)
[2024-07-16] MEDS ORDERED: GLUCOSE 40% GEL 15 GM TUBE PO PRN (23:39)
[2024-07-16] MEDS ORDERED: CARBOHYDRATES FOR HYPOGLYCEMIA PO PRN (23:39)
[2024-07-16] MEDS ORDERED: DEXTROSE 50% 50 ML SYRINGE IV PRN (23:39)
[2024-07-16] MEDS ORDERED: GLUCOSE 10 TAB/TUBE PO PRN (23:39)
[2024-07-16] MEDS ORDERED: GLUCAGON FOR INJ 1 MG VIAL SQ PRN (23:39)
[2024-07-16] MEDS: SODIUM CHLORIDE 0.9% 1,000 ML IV SCH (23:57)
[2024-07-16] MEDS: SODIUM CHLORIDE 0.9% 500 ML IV ONE (23:57)
[2024-07-16] MEDS: ALBUMIN 25% 25 GM/100 ML VIAL IV ONE (23:58)
[2024-07-16] MEDS: MAGNESIUM SULFATE / D5W 1 GM/100 ML BAG IV ONE (23:58)
[2024-07-17] MEDS: LIDOCAINE/PRILOCAINE 2.5% EA CRM EXT PRN (05:40)
[2024-07-17 06:35] LABS: Basophils # (auto) 0.04 K/uL (0.00-0.20); Basophils % (auto) 0.5 %; Eosinophils # (auto) 0.12 K/uL (0.00-0.50); Eosinophils % (auto) 1.5 %; Hematocrit (blood only) 29.5 % (42.0-52.0); Immature Granulocytes # (auto) 0.03 K/uL (0.01-0.20); Immature Granulocytes % (auto) 0.4 %; Lymphocytes # (auto) 1.25 K/uL (1.20-3.40); Lymphocytes % (auto) 16.1 %; Mean Corpuscular Hemoglobin 29.5 pg (25.0-34.0); Mean Corpuscular Hgb Conc 33.9 g/dL (32.0-36.0); Mean Platelet Volume 8.2 fL (9.4-12.4); Monocytes # (auto) 0.52 K/uL (0.11-0.59); Monocytes % (auto) 6.7 %; Neutrophils # (auto) 5.82 K/uL (1.40-6.50); Neutrophils % (auto) 74.8 %; Platelet Count 244 K/uL (130-400); RDW Coefficient of Variation 13.1 % (11.5-14.5); RDW Standard Deviation 41.3 fL (36.4-46.3); Red Blood Count 3.39 M/uL (4.70-6.10); White Blood Count 7.78 K/ul (4.8-10.8)
[2024-07-17 06:50] LABS: Albumin Globulin Ratio 1.2 (0.9-2); BUN Creatinine Ratio 12.2 (10-20); Bilirubin,Total 0.4 mg/dl (0.2-1.0); Calcium 8.2 mg/dl (8.6-10.3); Globulin 2.6 gm/dl (2.5-4.0); Magnesium 1.9 mg/dl (1.7-2.4); Potassium 3.8 mmol/L (3.5-5.1); Total Protein 5.6 gm/dl (6.0-8.3)
[2024-07-17 06:55] LABS: Troponin I High Sensitivity 32.4 pg/ml (0-20)
[2024-07-17 07:17] LABS: Estimated Average Glucose 111 mg/dl; Hemoglobin A1C 5.5 % (4.5-5.6)
[2024-07-17] MEDS: FERROUS SULFATE 325 MG TAB PO SCH (08:24)
[2024-07-17] MEDS: MULTIVITAMIN TAB PO SCH (08:24)
[2024-07-17] MEDS: CHOLECALCIFEROL 125 MCG (5,000 UNITS) TAB PO SCH (08:24)
[2024-07-17] MEDS: CHOLECALCIFEROL 25 MCG (1000 UNITS) TAB PO SCH (08:24)
[2024-07-17] MEDS: VITAMIN B COMPLEX TAB PO SCH (08:24)
[2024-07-17] MEDS: sulfaSALAzine 500 MG TABLET PO SCH (08:24)
[2024-07-17] MEDS: TOCOPHERYL, DL-ALPHA 400 UNITS 180 MG CAP PO SCH (08:24)
[2024-07-17] MEDS: ASCORBIC ACID 500 MG TAB PO SCH (08:25)
--- NOTE | 2024-07-17 08:36 | Hospitalist Progress Note ---
Date of Service July 17, 2024 Assessment & Plan (1) Near syncope: (2) SVT (supraventricular tachycardia): (3) Acute hyponatremia: (4) Anxiety: (5) Rheumatoid arthritis: Plan The patient is a 69-year-old male with past medical history including SNHL bilaterally, anemia, anxiety, rheumatoid arthritis, history of duodenal ulcer, history of upper GI hemorrhage, and vitamin D deficiency. He presents to the emergency department after symptoms as noted above. While in the emergency department, he was found to be in SVT 150, received adenosine 6 then 12 mg IV, with conversion to normal sinus rhythm. He was then referred for evaluation for admission The patient presents to the emergency department after a near syncopal episode earlier today, with the patient felt lightheaded and dizzy, like he was almost going to pass out, but did have some improvement with some water. He reports that he did gently lowered himself to the ground, landing on his right hip, and was able to crawl to the phone to call 911. He reports that his symptoms of rheumatoid arthritis have been worse lately since he has been experimenting more with expanding his food intake eating more red meats and seafood such as shrimp, which have given him problems in the past. He feels his symptoms today are related to anemia, and worsening of RA symptoms of generalized weakness as noted. He does take regular amounts of vitamins, which she has backed off on somewhat recently as well. He had been on high doses of sulfasalazine, but had been concerned regarding potential side effects, and the dose has been cut in half. #Near syncope- - DDx: SVT, dehydration, anemia, anxiety, - cont tele - Trop: 18.4 > 32.4 - ECHO pending #SVT- - EKG notes rate of 150 - s/p adenosine 6 mg IV, then 12 mg IV from the ED with conversion to sinus rhythm - maintain K > 4 and Mg > 2 - s/p albumin and IVF - cardiology consulted #Hyponatremia - Na 125 on admission, currently 135 - trend at this time #RA - patient has been reluctant to use sulfasalazine at higher doses due to concerns regarding side effects - He tries to optimize his treatment with a number of herbal vitamins - He reports that recently his been trying to eat increased red meats and shrimp, which he knows is giving him problems in the past, and likely has contributed his symptoms now - He can continue his usual supplements - Continue sulfasalazine 0.5 mg p.o. twice daily - He reports that due to insurance change he has had to have his manager e learning changed from Dr. De Dios to Dr. Massey, but he reports he has been too sick to get into see him over the past few months - Patient also consider appointment with Dr. Tejeda to go over nutritional aspects #Anemia - baseline Hgb 13-14, this AM 10 - trend Hgb at this time, could have some dilution effect - cont iron Admission and Anticipated Discharge Date Admission Date: July 16, 2024 Subjective No acute events overnight Currently no new complaints Review of Systems Review of Systems: Comprehensive ROS neg Physical Exam Physical Exam: Gen: NAD, lying in bed comfortable HEENT: NC/AT, MMM Lungs: CTAB CVS: s1s2nl, RRR Abd: soft, NT, nl bowel sounds Ext: extensive RA changes in his hands and feet Results & Data Results & Data Vital Signs (Past 12 Hours) Vital Signs Temp Pulse Pulse Resp BP BP Pulse Ox 07/17/24 07:10 36.5 C 97 H 18 103/63 95 07/17/24 02:33 36.8 C 96 H 18 116/69 95 07/17/24 00:31 95 H 07/16/24 23:40 37.1 C 98 H 18 121/76 96 07/16/24 23:07 94 H 18 103/72 97 07/16/24 22:00 95 H 18 99/64 L 99 O2 Del Method 07/17/24 07:10 Room Air 07/17/24 02:33 Room Air 07/17/24 00:31 07/16/24 23:40 Room Air 07/16/24 23:07 Room Air 07/16/24 22:00 Room Air PG Care Time/CCT Total # of Minutes Spent Total Time Spent with Patient: Total time spent is greater than 50% in coordination of care (as documented) at patient's floor/unit and/or counseling patient: Coding Level of Care Code 92916 SUB INP/OBS CARE 2/35MIN Diagnoses Near syncope R55 SVT (supraventricular tachycardia) I47.10 Acute hyponatremia E87.1 Anxiety F41.9 Rheumatoid arthritis M06.9
[2024-07-17] MEDS ORDERED: [UNRECOGNIZED DRUG - MIXTURE] PO SCH (09:00)
[2024-07-17] MEDS ORDERED: FLAXSEED OIL MS SCH (09:00)
[2024-07-17] MEDS: INSULIN ASPART PER UNIT CHARGE SC SCH (09:04)
--- NOTE | 2024-07-17 09:39 | Cardiology Consultation ---
Date of Consultation July 17, 2024 Assessment & Plan (1) Near syncope: (2) SVT (supraventricular tachycardia): Plan 1. Near Syncope -D/D includes Supraventricular Tachycardia, Dehydration, Anemia and Anxiety. -Patient on telemetry monitoring and shows sinus rhythm and heart rate in the range of 90 to 100. -High sensitivity Troponin 18.4> 32.4 -Na 125> 135; Calcium: 8.7> 8.2; Ma.7>1.8; K 4.3>3.8 -Patient reports no light headedness, dizziness now. 2. Supraventricular tachycardia -He did receive adenosine 6 mg IV, then 12 mg IV from the ED with conversion to normal sinus rhythm -Received magnesium sulfate 1 mg IV -Telemetry monitoring shows sinus tachycardia and Heart Rate ranging from 90 to 100. -Na 125> 135; Calcium: 8.7> 8.2; Ma.7>1.8; K 4.3>3.8 -ECHO: shows Normal Left Ventricular systolic Function, Ejection Fraction of 65 to 70 %, No regional wall motion abnormalities seen, mild mitral regurgitation is seen. -no dizziness, chest pain, shortness of breath or palpitations now. -Patient doesn't consume alcohol, doesn't smoke and has moderate caffeine consumption. -Metoprolol Tartrate 25mg PRN -Follow up with Dr Osborne in Outpatient to consider an ablation. -Ready to go home from cardiology perspective - Supervising Physician Co-Signing Physician Notes Patient seen and examined. Agree with Dr. Terry's assessment and plan. Impression 1. Paroxysmal SVT -Likely responsible for his presenting complaints of presyncope. -Responded quickly to intravenous adenosine. -Suggest metoprolol to tartrate 25 mg every 6 hours as needed SVT. -Will arrange an outpatient consultation with Dr. Osborne to discuss a possible ablation. History of Present Illness Reason for Consultation: Syncope, Supraventricular Tachycardia Attending Physician: Tiffany Milan MD History of Present Illness Patient is a 69 Y O Male with PMH of Sensorineural hearing loss of both ears, Anxiety, Rheumatoid Arthritis, Upper Gastrointestinal hemorrhage and Vitamin D deficiency disease. He presented to ER yesterday after near syncopal episode. Patient reports that he stood up to drink some water yesterday evening when he felt very lightheaded like he was going to pass out. He reports that he stumbled into a chair and then slid to the ground, landing on his right hip. He felt some strange sensation in centre of his chest. It was like squeezing by something in the centre of the chest. He states he was able to crawl to the phone to call 911. There was no loss of consciousness, seizure and Palpitations. He felt better after drinking some water. He had similar symptoms 3 weeks ago and got better with drinking more water. Patient state he drinks 4 cups of coffee per day and tries to drink plenty of water (1 to 2 litre) everyday. Also he has worsening of RA symptoms since 5 months which he attributes to consuming more read meats, and sea foods.He is taking high dose of Sulfasalazine 500mg twice a day. Patient not able to sleep well due to RA flare up. Patient always feels dehydrated which he thinks is due to Sulfasalazine. He takes regular Vitamins but has backed off since some time now. Patient lives alone and doesn't have any support at home. Allergies Allergy/AdvReac Type Severity Reaction Status Date / Time bee venom protein (honey bee) Allergy Mild Anaphylaxis Verified 07/16/24 22:50 Corticosteroids Allergy Mild ANAPHYLAXIS Verified 05/26/24 13:50 (Glucocorticoids) soy Allergy Mild Anaphylaxis Verified 07/16/24 22:50 wheat Allergy Mild ANAPHYLAXIS Verified 05/26/24 13:50 olive oil Allergy Unknown Unknown Verified 07/16/24 22:50 NSAIDS (Non-Steroidal AdvReac Intermediate BLEEDING Verified 07/16/24 22:50 Anti-Inflamma Beef Containing Products AdvReac Verified 07/17/24 10:30 nieves pepper AdvReac Verified 07/17/24 10:30 [place] And Derivatives AdvReac Verified 07/17/24 10:29 Pork/Porcine Containing AdvReac Verified 07/17/24 10:30 Products potato AdvReac Verified 07/17/24 10:30 tomato AdvReac Verified 07/17/24 10:30 Home Medications Medication Instructions Recorded Confirmed Type ascorbate calcium (vitamin C) 500 1 gm PO DAILY 03/01/19 07/16/24 History mg tablet cholecalciferol (vitamin D3) 50 6,000 units PO DAILY 03/01/19 07/16/24 History mcg (2,000 unit) capsule ferrous sulfate 325 mg (65 mg 650 mg PO DAILY 03/01/19 07/16/24 History iron) tablet flaxseed oil 15 - 45 ml miscellaneous DAILY 03/01/19 07/16/24 History multivitamin (Daily Multi-Vitamin 1 tab PO DAILY 03/01/19 07/16/24 History tablet) vitamin E (dl, acetate) 180 mg 400 units PO DAILY 03/01/19 07/16/24 History (400 unit) capsule epinephrine 0.3 mg/0.3 mL 0.3 mg (0.3 mL) IM UD PRN 11/06/22 07/16/24 Rx injection, auto-injector (EpiPen) anaphylaxis #2 ea chlorophyllin-alfalfa 20 mg-100 mg 1 tab PO BID 03/12/23 07/16/24 History tablet (Chlorophyll (with alfalfa)) lidocaine-prilocaine 2.5 %-2.5 % 1 applic topical .COMPLEX PRN for 07/16/24 07/16/24 Rx topical cream injection site, blood sugar fingersticks #30 grams vitamin B complex 1 tab PO DAILY 07/16/24 07/16/24 History sulfasalazine 500 mg tablet 0.5 g PO BID #60 tabs 07/17/24 Rx Patient History Medical History Encounter for screening laboratory testing for COVID-19 virus Left ankle pain Foreign body in ear Otitis externa Duodenal ulcer History of duodenal ulcer Anxiety Left wrist sprain GI bleed Concussion Anemia Rheumatoid arthritis Surgical History S/P tooth extraction S/P appendectomy Family History Mother Diabetes Hypertension Stroke Father Rheumatic arteritis Neoplasm of esophagus Sister Allergy Social History Smoking Status: Former smoker Hx Alcohol Use: No Hx Substance Use: No Preferred Language: [place] Communication Ability: Effective Employee Welfare Manager Required: No Beliefs That Will Affect Care: None marital status: Single Current Living Situation: Alone current occupational status: retired Other Information That Helps Us Care for You: No Feels Safe at Home: Yes Safety Concerns: Feels Safe At This Time Seatbelt Use: always Assistive Devices: None Review of Systems Review of Systems: As Per HPI Physical Exam Physical Exam: The patient is awake, alert and oriented 3, well developed and well nourished, normocephalic and atraumatic, lying in bed and in no acute distress. HEENT--PERRL, EOMI, mucous membranes and oropharynx mildly dry. Neck--supple. No JVD. No bruits. Thyroid normal, trachea midline, no adenopathy. Heart--normal S1 and S2. No murmurs, rubs or gallops. Lungs--clear bilaterally, no respiratory distress, no accessory muscle use. Abdomen--normal bowel sounds and soft. Nontender. Nondistended, no hernias or masses, no organomegaly. Extremities--no cyanosis or clubbing. No edema. There are good distal pulses b/l. Deformities in hand due to RA. Dermatologic--normal skin turgor, normal color, no abnormal lymph nodes, no rash. Neurologic--cranial nerves II through XII grossly intact. Rheumatologic--normal range of motion. Psychiatric--normal affect. Results & Data Vital Signs (Past 12 Hours) Vital Signs Temp Pulse Pulse Resp BP BP Pulse Ox 07/17/24 09:05 99 H 07/17/24 07:46 07/17/24 07:10 36.5 C 97 H 18 103/63 95 07/17/24 02:33 36.8 C 96 H 18 116/69 95 07/17/24 00:31 95 H 07/16/24 23:40 37.1 C 98 H 18 121/76 96 07/16/24 23:07 94 H 18 103/72 97 07/16/24 22:00 95 H 18 99/64 L 99 O2 Del Method 07/17/24 09:05 07/17/24 07:46 Room Air 07/17/24 07:10 Room Air 07/17/24 02:33 Room Air 07/17/24 00:31 07/16/24 23:40 Room Air 07/16/24 23:07 Room Air 07/16/24 22:00 Room Air PG Care Time/CCT Total # of Minutes Spent Total Time Spent with Patient: Total time spent is greater than 50% in coordination of care (as documented) at patient's floor/unit and/or counseling patient: Coding Level of Care Code 68042 INT INP/OBS CARE MIN Diagnoses Near syncope R55 SVT (supraventricular tachycardia) I47.10
[2024-07-17] MEDS: ACETAMINOPHEN 325 MG TAB PO PRN (11:17)
--- NOTE | 2024-07-17 12:50 | XCELERA ---
[id number]
--- NOTE | 2024-07-17 13:24 | Electrocardiogram Report ---
Test Reason : Blood Pressure : */* mmHG Vent. Rate : 156 BPM Atrial Rate : * BPM P-R Int : * ms QRS Dur : 66 ms QT Int : 286 ms P-R-T Axes : * 76 35 degrees QTcB Int : 460 ms Supraventricular tachycardia Abnormal ECG When compared with ECG of 25-Dec-2016 18:04, Significant changes have occurred Confirmed by Kerwin Hart ([id number]) on 07/17/2024 1:23:57 PM Referred By: REFERRED SELF Confirmed By: Kerwin Hart
--- NOTE | 2024-07-17 13:28 | Electrocardiogram Report ---
Test Reason : Blood Pressure : */* mmHG Vent. Rate : 111 BPM Atrial Rate : 111 BPM P-R Int : 196 ms QRS Dur : 72 ms QT Int : 308 ms P-R-T Axes : 69 61 59 degrees QTcB Int : 418 ms Sinus tachycardia Possible Left atrial enlargement Septal infarct , age undetermined Abnormal ECG When compared with ECG of 16-Jul-2024 19:05, (unconfirmed) Septal infarct is now Present Non-specific change in ST segment in Inferior leads ST no longer depressed in Lateral leads Confirmed by Kerwin Hart ([id number]) on 07/17/2024 1:27:25 PM Referred By: REFERRED SELF Confirmed By: Kerwin Hart
--- NOTE | 2024-07-17 14:54 | Electrocardiogram Report ---
Test Reason : Blood Pressure : */* mmHG Vent. Rate : 92 BPM Atrial Rate : 92 BPM P-R Int : 196 ms QRS Dur : 88 ms QT Int : 362 ms P-R-T Axes : 63 57 64 degrees QTcB Int : 447 ms Poor data quality, interpretation may be adversely affected Normal sinus rhythm Low voltage QRS Borderline ECG When compared with ECG of 16-Jul-2024 20:10, (unconfirmed) Criteria for Septal infarct are no longer Present Nonspecific T wave abnormality no longer evident in Anterior leads Confirmed by Kerwin Hart ([id number]) on 07/17/2024 2:54:28 PM Referred By: REFERRED SELF Confirmed By: Kerwin Hart
[2024-07-17 17:03] LABS: Appearance Urine Clear (Clear); Bilirubin Urine Negative (Negative); Blood Urine Negative (Negative); Color Urine Yellow; Glucose Urine UA Negative (Negative); Ketones Urine Negative (Negative); Leukocyte Esterase Urine Negative (Negative); Nitrite Urine Negative (Negative); Protein Urine Negative (Negative); Specific Gravity Urine 1.006 (1.000-1.030); Urobilinogen Urine Negative (Negative)
[2024-07-18 06:27] LABS: Basophils # (auto) 0.04 K/uL (0.00-0.20); Basophils % (auto) 0.4 %; Eosinophils # (auto) 0.29 K/uL (0.00-0.50); Eosinophils % (auto) 3.1 %; Hematocrit (blood only) 33.2 % (42.0-52.0); Hemoglobin 11.1 g/dl (14.0-18.0); Immature Granulocytes # (auto) 0.04 K/uL (0.01-0.20); Immature Granulocytes % (auto) 0.4 %; Lymphocytes # (auto) 1.07 K/uL (1.20-3.40); Lymphocytes % (auto) 11.3 %; Mean Corpuscular Hgb Conc 33.4 g/dL (32.0-36.0); Mean Corpuscular Volume 86.7 fL (80.0-100.0); Mean Platelet Volume 8.3 fL (9.4-12.4); Monocytes # (auto) 0.63 K/uL (0.11-0.59); Monocytes % (auto) 6.7 %; Neutrophils % (auto) 78.1 %; Platelet Count 267 K/uL (130-400); RDW Coefficient of Variation 13.5 % (11.5-14.5); RDW Standard Deviation 41.8 fL (36.4-46.3); Red Blood Count 3.83 M/uL (4.70-6.10); White Blood Count 9.47 K/ul (4.8-10.8)
[2024-07-18 06:37] LABS: Albumin Globulin Ratio 1.1 (0.9-2); Albumin Level 3.2 gm/dl (3.4-5.0); BUN Creatinine Ratio 14.3 (10-20); Bilirubin,Total 0.4 mg/dl (0.2-1.0); Calcium 8.6 mg/dl (8.6-10.3); Creatinine Clr Calc Pharmacy 134.7 ml/min; Globulin 2.9 gm/dl (2.5-4.0); Magnesium 1.8 mg/dl (1.7-2.4); Potassium 4.1 mmol/L (3.5-5.1); Total Protein 6.1 gm/dl (6.0-8.3)
[2024-07-18] MEDS: METOPROLOL TARTRATE 25 MG TAB PO PRN (09:36)
--- NOTE | 2024-07-18 09:40 | Hospitalist Progress Note ---
Date of Service July 18, 2024 Assessment & Plan (1) Near syncope: (2) SVT (supraventricular tachycardia): (3) Acute hyponatremia: (4) Anxiety: (5) Rheumatoid arthritis: Plan The patient is a 69-year-old male with past medical history including SNHL bilaterally, anemia, anxiety, rheumatoid arthritis, history of duodenal ulcer, history of upper GI hemorrhage, and vitamin D deficiency. He presents to the emergency department after symptoms as noted above. While in the emergency department, he was found to be in SVT 150, received adenosine 6 then 12 mg IV, with conversion to normal sinus rhythm. He was then referred for evaluation for admission The patient presents to the emergency department after a near syncopal episode earlier today, with the patient felt lightheaded and dizzy, like he was almost going to pass out, but did have some improvement with some water. He reports that he did gently lowered himself to the ground, landing on his right hip, and was able to crawl to the phone to call 911. He reports that his symptoms of rheumatoid arthritis have been worse lately since he has been experimenting more with expanding his food intake eating more red meats and seafood such as shrimp, which have given him problems in the past. He feels his symptoms today are related to anemia, and worsening of RA symptoms of generalized weakness as noted. He does take regular amounts of vitamins, which she has backed off on somewhat recently as well. He had been on high doses of sulfasalazine, but had been concerned regarding potential side effects, and the dose has been cut in half. #Near syncope- - DDx: SVT, dehydration, anemia, anxiety, - cont tele - Trop: 18.4 > 32.4 - ECHO: nl LV systolic fn, EF 65-70%, mild MR #SVT- - EKG notes rate of 150 - s/p adenosine 6 mg IV, then 12 mg IV from the ED with conversion to sinus rhythm - maintain K > 4 and Mg > 2 - s/p albumin and IVF - cardiology recs appreciated, metoprolol 25mg daily prn ordered #Hyponatremia - Na 125 on admission, currently 135 --> 132 - trend at this time #RA - patient has been reluctant to use sulfasalazine at higher doses due to concerns regarding side effects - He tries to optimize his treatment with a number of herbal vitamins - He reports that recently his been trying to eat increased red meats and shrimp, which he knows is giving him problems in the past, and likely has contributed his symptoms now - He can continue his usual supplements - Continue sulfasalazine 0.5 mg p.o. twice daily - He reports that due to insurance change he has had to have his broach trouble shooter changed from Dr. De Dios to Dr. Massey, but he reports he has been too sick to get into see him over the past few months - Patient also consider appointment with Dr. Tejeda to go over nutritional aspects #Anemia - baseline Hgb 13-14, this AM 10 - trend Hgb at this time, could have some dilution effect - cont iron #Dispo: PT / OT recs rehab, CM on board, awaiting placement Admission and Anticipated Discharge Date Admission Date: July 16, 2024 Subjective No acute events overnight Currently no new complaints Pt stated that after PT eval, he is ok with rehab but would eventually like to go home Review of Systems Review of Systems: Comprehensive ROS neg Physical Exam Physical Exam: Gen: NAD, lying in bed comfortable HEENT: NC/AT, MMM Lungs: CTAB CVS: s1s2nl, RRR Abd: soft, NT, nl bowel sounds Ext: extensive RA changes in his hands and feet Results & Data Results & Data Vital Signs (Past 12 Hours) Vital Signs Temp Pulse Pulse Pulse Resp BP Pulse Ox 07/18/24 07:19 37.1 C 95 H 18 107/66 95 07/18/24 03:02 36.6 C 91 H 14 118/74 95 07/17/24 22:59 36.8 C 90 18 109/66 97 07/17/24 21:58 107 H O2 Del Method 07/18/24 07:19 Room Air 07/18/24 03:02 Room Air 07/17/24 22:59 Room Air 07/17/24 21:58 PG Care Time/CCT Total # of Minutes Spent Total Time Spent with Patient: Total time spent is greater than 50% in coordination of care (as documented) at patient's floor/unit and/or counseling patient: Coding Level of Care Code 33522 SUB INP/OBS CARE 3/50MIN Diagnoses Near syncope R55 SVT (supraventricular tachycardia) I47.10 Acute hyponatremia E87.1 Anxiety F41.9 Rheumatoid arthritis M06.9
[2024-07-19 07:46] LABS: Basophils # (auto) 0.05 K/uL (0.00-0.20); Basophils % (auto) 0.6 %; Eosinophils # (auto) 0.26 K/uL (0.00-0.50); Hematocrit (blood only) 32.6 % (42.0-52.0); Hemoglobin 11.1 g/dl (14.0-18.0); Immature Granulocytes # (auto) 0.03 K/uL (0.01-0.20); Immature Granulocytes % (auto) 0.3 %; Lymphocytes # (auto) 1.02 K/uL (1.20-3.40); Lymphocytes % (auto) 11.7 %; Mean Corpuscular Hemoglobin 29.4 pg (25.0-34.0); Mean Corpuscular Volume 86.2 fL (80.0-100.0); Monocytes # (auto) 0.54 K/uL (0.11-0.59); Monocytes % (auto) 6.2 %; Neutrophils # (auto) 6.83 K/uL (1.40-6.50); Neutrophils % (auto) 78.2 %; Platelet Count 259 K/uL (130-400); RDW Coefficient of Variation 13.1 % (11.5-14.5); RDW Standard Deviation 41.1 fL (36.4-46.3); Red Blood Count 3.78 M/uL (4.70-6.10); White Blood Count 8.73 K/ul (4.8-10.8)
[2024-07-19 08:04] LABS: Albumin Level 2.9 gm/dl (3.4-5.0); BUN Creatinine Ratio 10.9 (10-20); Bilirubin,Total 0.4 mg/dl (0.2-1.0); Calcium 8.4 mg/dl (8.6-10.3); Globulin 2.8 gm/dl (2.5-4.0); Magnesium 1.7 mg/dl (1.7-2.4); Potassium 3.8 mmol/L (3.5-5.1); Total Protein 5.7 gm/dl (6.0-8.3)
[2024-07-19] MEDS: guaiFENesin 600 MG TABCR PO SCH (08:58)
--- NOTE | 2024-07-19 09:25 | Hospitalist Progress Note ---
Date of Service July 19, 2024 Assessment & Plan (1) Near syncope: (2) SVT (supraventricular tachycardia): (3) Acute hyponatremia: (4) Anxiety: (5) Rheumatoid arthritis: Plan The patient is a 69-year-old male with past medical history including SNHL bilaterally, anemia, anxiety, rheumatoid arthritis, history of duodenal ulcer, history of upper GI hemorrhage, and vitamin D deficiency. He presents to the emergency department after symptoms as noted above. While in the emergency department, he was found to be in SVT 150, received adenosine 6 then 12 mg IV, with conversion to normal sinus rhythm. He was then referred for evaluation for admission The patient presents to the emergency department after a near syncopal episode earlier today, with the patient felt lightheaded and dizzy, like he was almost going to pass out, but did have some improvement with some water. He reports that he did gently lowered himself to the ground, landing on his right hip, and was able to crawl to the phone to call 911. He reports that his symptoms of rheumatoid arthritis have been worse lately since he has been experimenting more with expanding his food intake eating more red meats and seafood such as shrimp, which have given him problems in the past. He feels his symptoms today are related to anemia, and worsening of RA symptoms of generalized weakness as noted. He does take regular amounts of vitamins, which she has backed off on somewhat recently as well. He had been on high doses of sulfasalazine, but had been concerned regarding potential side effects, and the dose has been cut in half. #Near syncope- no further episodes - DDx: SVT, dehydration, anemia, anxiety - cont tele - Trop: 18.4 > 32.4 - ECHO: nl LV systolic fn, EF 65-70%, mild MR #SVT- - EKG notes rate of 150 - s/p adenosine 6 mg IV, then 12 mg IV from the ED with conversion to sinus rhythm - maintain K > 4 and Mg > 2 - s/p albumin and IVF - cardiology recs appreciated, metoprolol 25mg daily prn ordered - if pt is consistently requiring metoprolol every single day, will order medication as daily and have pt take extra dose if he has breakthrough SVT prior to returning to the hospital #Hyponatremia - Na 125 on admission, currently 135 --> 132 --> 132 - trend at this time #RA - patient has been reluctant to use sulfasalazine at higher doses due to concerns regarding side effects - He tries to optimize his treatment with a number of herbal vitamins - He reports that recently his been trying to eat increased red meats and shrimp, which he knows is giving him problems in the past, and likely has contributed his symptoms now - He can continue his usual supplements - Continue sulfasalazine 0.5 mg p.o. twice daily - He reports that due to insurance change he has had to have his commissary clerk changed from Dr. De Dios to Dr. Massey, but he reports he has been too sick to get into see him over the past few months - Patient also consider appointment with Dr. Tejeda to go over nutritional aspects #Anemia - baseline Hgb 13-14, currently stable around 11 - trend Hgb at this time, could have some dilution effect - cont iron #Dispo: PT / OT recs rehab, CM on board, referral sent to [facility] also aware that pt is requesting medical and financial power of spanish teacher paperwork Pt medically stable for discharge, pending placement Admission and Anticipated Discharge Date Admission Date: July 16, 2024 Subjective No acute events overnight Currently no new complaints Today, pt is requesting paperwork for medical and financial power spanish teacher, CM notified Review of Systems Review of Systems: Comprehensive ROS neg Physical Exam Physical Exam: Gen: NAD, lying in bed comfortable HEENT: NC/AT, MMM Lungs: CTAB CVS: s1s2nl, RRR Abd: soft, NT, nl bowel sounds Ext: extensive RA changes in his hands and feet Results & Data Results & Data Vital Signs (Past 12 Hours) Vital Signs Temp Pulse Pulse Resp BP Pulse Ox O2 Del Method 07/19/24 07:45 37.3 C 97 H 18 113/64 93 Room Air 07/19/24 03:07 37.1 C 89 18 131/81 97 Room Air 07/18/24 23:26 36.9 C 100 H 21 109/75 94 Room Air 07/18/24 21:52 82 PG Care Time/CCT Total # of Minutes Spent Total Time Spent with Patient: Total time spent is greater than 50% in coordination of care (as documented) at patient's floor/unit and/or counseling patient: Coding Level of Care Code 53604 SUB INP/OBS CARE 3/50MIN Diagnoses Near syncope R55 SVT (supraventricular tachycardia) I47.10 Acute hyponatremia E87.1 Anxiety F41.9 Rheumatoid arthritis M06.9
[2024-07-19] MEDS: POTASSIUM CHLORIDE CRTAB 20 MEQ TABCR PO STA (09:41)
[2024-07-19] MEDS: MAGNESIUM OXIDE 400 MG TAB PO STA (09:55)
--- NOTE | 2024-07-19 13:21 | Communication Note ---
Date of Service: July 19, 2024 DEVELOPMENTAL ELECTRONICS ASSEMBLER was called for "passing out" episodes. Pt is throwing his upper body over the bed stating he is passing out. During DEVELOPMENTAL ELECTRONICS ASSEMBLER, he was witnessed to take a deep breath, close his eyes, and stay like that until he is no longer able to hold his breath. The he will take a deep breath and open his eyes and state that he just passed out. He remained hemodynamically stable during this period. His EKG showed sinus tach. He later requested physician evaluation to demonstrate how he is passing out. He was informed that this is not how people pass out and he is advised to stop holding his breath and closing his eyes stating he is passing out. DEVELOPMENTAL ELECTRONICS ASSEMBLER was cancelled. No further workup necessary.
[2024-07-19] MEDS: OLANZapine 5 MG TABLET PO PRN (16:06)
[2024-07-20 07:33] LABS: Hematocrit (blood only) 38.6 % (42.0-52.0); Hemoglobin 12.8 g/dl (14.0-18.0); Mean Corpuscular Hemoglobin 28.6 pg (25.0-34.0); Mean Corpuscular Hgb Conc 33.2 g/dL (32.0-36.0); Mean Corpuscular Volume 86.4 fL (80.0-100.0); Platelet Count 314 K/uL (130-400); RDW Coefficient of Variation 13.2 % (11.5-14.5); RDW Standard Deviation 41.1 fL (36.4-46.3); Red Blood Count 4.47 M/uL (4.70-6.10); White Blood Count 11.29 K/ul (4.8-10.8)
[2024-07-20 07:43] LABS: BUN Creatinine Ratio 12.5 (10-20); Calcium 9.2 mg/dl (8.6-10.3); Creatinine Clr Calc Pharmacy 134.7 ml/min; Magnesium 1.7 mg/dl (1.7-2.4); Phosphorus 3.4 mg/dl (2.5-4.9)
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
--- NOTE | 2024-07-20 12:23 | Hospitalist Progress Note ---
Date of Service July 20, 2024 Assessment & Plan (1) Delirium: (2) Near syncope: (3) SVT (supraventricular tachycardia): (4) Acute hyponatremia: (5) Anxiety: (6) Rheumatoid arthritis: Plan Delirium: Etiology is uncertain Patient could have an underlying infection Urinalysis did dot suggest UTI will obtain blood cultures, CRP Mild elevation in WBC, will empirically start zosyn continue Risperidone 0.5mg BID for agitation #Near syncope- most likely not real syncope, going by the description - DDx: SVT, dehydration, anemia, anxiety - cont tele - Trop: 18.4 > 32.4 - ECHO: nl LV systolic fn, EF 65-70%, mild MR #SVT- - EKG notes rate of 150 - s/p adenosine 6 mg IV, then 12 mg IV from the ED with conversion to sinus rhythm - maintain K > 4 and Mg > 2 - s/p albumin and IVF - cardiology recs appreciated, metoprolol 25mg daily prn ordered - if pt is consistently requiring metoprolol every single day, will order medication as daily and have pt take extra dose if he has breakthrough SVT prior to returning to the hospital #Hyponatremia - Na 125 on admission, currently 135 --> 132 --> 132 - trend at this time #RA - patient has been reluctant to use sulfasalazine at higher doses due to concerns regarding side effects - He tries to optimize his treatment with a number of herbal vitamins - He reports that recently his been trying to eat increased red meats and shrimp, which he knows is giving him problems in the past, and likely has contributed his symptoms now - He can continue his usual supplements - Continue sulfasalazine 0.5 mg p.o. 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 De Dios to Dr. Massey, but he reports he has been too sick to get into see him over the past few months - Patient also consider appointment with Dr. Tejeda to go over nutritional aspects #Anemia - baseline Hgb 13-14, currently stable around 11 - trend Hgb at this time, could have some dilution effect - cont iron #Dispo: PT / OT recs rehab, CM on board, referral sent to [facility] and [facility] CM also aware that pt is requesting medical and financial power of technical clerk paperwork Patient not medically stable yet for discharge Admission and Anticipated Discharge Date Admission Date: July 19, 2024 Subjective patient seen and examined, unable to obtain any hx, he was lying in bed, very awkwardly Review of Systems Review of Systems: unable to obtain Physical Exam Physical Exam: The patient is awake, alert HEENT--PERRL, EOMI, mucous membranes and oropharynx mildly dry Neck--supple. No JVD. No bruits. Thyroid normal, trachea midline, no adenopathy. Heart--normal S1 and S2. No murmurs, rubs or gallops. Lungs--clear bilaterally, no respiratory distress, no accessory muscle use. Abdomen--normal bowel sounds and soft. Extremities--no cyanosis or clubbing. No edema. Dermatologic--normal skin turgor, normal color, no abnormal lymph nodes, no rash. Neurologic--cranial nerves II through XII grossly intact. Rheumatologic--normal range of motion. Psychiatric--normal affect. Results & Data Results & Data Vital Signs (Past 12 Hours) Vital Signs Temp Pulse Pulse Resp BP Pulse Ox O2 Del Method 07/20/24 08:00 135 H 07/20/24 07:17 98.2 F 129 H 20 125/84 97 Room Air 07/20/24 03:33 98.2 F 113 H 18 123/80 97 Room Air PG Care Time/CCT Total # of Minutes Spent Total Time Spent with Patient: Total time spent is greater than 50% in coordination of care (as documented) at patient's floor/unit and/or counseling patient: Coding Level of Care Code 59883 SUB INP/OBS CARE 2/35MIN Diagnoses Delirium R41.0 Near syncope R55 SVT (supraventricular tachycardia) I47.10 Acute hyponatremia E87.1 Anxiety F41.9 Rheumatoid arthritis M06.9 Time Spent (min) 35
[2024-07-20] MEDS: risperiDONE ODT 0.5 MG SOLTAB PO SCH (13:36)
[2024-07-20] MEDS: 4.5GM X1 IV ONE (13:51)
--- NOTE | 2024-07-20 14:57 | Electrocardiogram Report ---
Test Reason : Blood Pressure : */* mmHG Vent. Rate : 91 BPM Atrial Rate : 91 BPM P-R Int : 164 ms QRS Dur : 88 ms QT Int : 348 ms P-R-T Axes : 19 51 31 degrees QTcB Int : 428 ms Normal sinus rhythm Normal ECG When compared with ECG of 17-Jul-2024 04:54, No significant change was found Confirmed by Blake Rogers ([id number]) on 07/20/2024 2:56:59 PM Referred By: REFERRED SELF Confirmed By: Blake Rogers
[2024-07-20] MEDS: PIPERACILLIN/TAZOBACTAM 4.5 GM/100 ML BAG IV SCH (18:33)
[2024-07-20] MEDS: HALOPERIDOL LACTATE 5 MG/ML 1 ML VIAL IV STA (23:21)
--- NOTE | 2024-07-21 06:25 | Electrocardiogram Report ---
Test Reason : Blood Pressure : */* mmHG Vent. Rate : 103 BPM Atrial Rate : 103 BPM P-R Int : 164 ms QRS Dur : 86 ms QT Int : 330 ms P-R-T Axes : 6 51 51 degrees QTcB Int : 432 ms Sinus tachycardia Low voltage QRS Borderline ECG When compared with ECG of 18-Jul-2024 05:06, (unconfirmed) No significant change was found Confirmed by Blake Rogers ([id number] on 07/21/2024 6:24:51 AM Referred By: REFERRED SELF Confirmed By: Blake Rogers
[2024-07-21 09:10] LABS: Hemoglobin 11.4 g/dl (14.0-18.0); Mean Corpuscular Hemoglobin 28.8 pg (25.0-34.0); Mean Corpuscular Hgb Conc 32.6 g/dL (32.0-36.0); Mean Corpuscular Volume 88.4 fL (80.0-100.0); Platelet Count 269 K/uL (130-400); RDW Coefficient of Variation 13.5 % (11.5-14.5); RDW Standard Deviation 43.4 fL (36.4-46.3); Red Blood Count 3.96 M/uL (4.70-6.10); White Blood Count 16.51 K/ul (4.8-10.8)
[2024-07-21 09:26] LABS: Calcium 8.8 mg/dl (8.6-10.3); Creatinine Clr Calc Pharmacy 116.1 ml/min; Potassium 4.2 mmol/L (3.5-5.1)
--- NOTE | 2024-07-21 10:56 | Hospitalist Progress Note ---
Date of Service July 21, 2024 Assessment & Plan (1) Delirium: (2) Near syncope: (3) SVT (supraventricular tachycardia): (4) Acute hyponatremia: (5) Anxiety: (6) Rheumatoid arthritis: Plan Delirium: Etiology is uncertain Patient could have an underlying infection Urinalysis did dot suggest UTI WBC and CRP elevated Will continue empiric IV zosyn continue Risperidone 0.5mg BID for agitation #Near syncope- most likely not real syncope, going by the description - DDx: SVT, dehydration, anemia, anxiety - cont tele - Trop: 18.4 > 32.4 - ECHO: nl LV systolic fn, EF 65-70%, mild MR #SVT- - EKG notes rate of 150 - s/p adenosine 6 mg IV, then 12 mg IV from the ED with conversion to sinus rhythm - maintain K > 4 and Mg > 2 - s/p albumin and IVF - cardiology recs appreciated, metoprolol 25mg daily prn ordered #Hyponatremia - Na 125 on admission, currently 135 --> 132 --> 132 - trend at this time #RA - patient has been reluctant to use sulfasalazine at higher doses due to concerns regarding side effects - He tries to optimize his treatment with a number of herbal vitamins - He reports that recently his been trying to eat increased red meats and shrimp, which he knows is giving him problems in the past, and likely has contributed his symptoms now - He can continue his usual supplements - Continue sulfasalazine 0.5 mg p.o. twice daily - He reports that due to insurance change he has had to have his relief charge nurse changed from Dr. De Dios to Dr. Massey, but he reports he has been too sick to get into see him over the past few months - Patient also consider appointment with Dr. Tejeda to go over nutritional aspects #Anemia - baseline Hgb 13-14, currently stable around 11 - trend Hgb at this time, could have some dilution effect - cont iron malnutrition Patient has been refusing food will order nutritional supplements #Dispo: PT / OT recs rehab, CM on board, referral sent to [facility] CM also aware that pt is requesting medical and financial power of trust and estates attorney paperwork Patient not medically stable yet for discharge Admission and Anticipated Discharge Date Admission Date: July 19, 2024 Subjective patient seen and examined, more awake and interactive today, but still confused Review of Systems Review of Systems: unable to obtain Physical Exam Physical Exam: The patient is awake, alert HEENT--PERRL, EOMI, mucous membranes and oropharynx mildly dry Neck--supple. No JVD. No bruits. Thyroid normal, trachea midline, no adenopathy. Heart--normal S1 and S2. No murmurs, rubs or gallops. Lungs--clear bilaterally, no respiratory distress, no accessory muscle use. Abdomen--normal bowel sounds and soft. Extremities--no cyanosis or clubbing. No edema. Dermatologic--normal skin turgor, normal color, no abnormal lymph nodes, no rash. Neurologic--cranial nerves II through XII grossly intact. Rheumatologic--normal range of motion. Psychiatric--normal affect. Results & Data Results & Data Vital Signs (Past 12 Hours) Vital Signs Temp Pulse Pulse Resp BP Pulse Ox O2 Del Method 07/21/24 08:28 97.3 F L 107 H 18 102/59 L 92 Room Air 07/21/24 04:45 98.2 F 122 H 22 98/47 L 95 Room Air 07/21/24 00:00 147 H PG Care Time/CCT Total # of Minutes Spent Total Time Spent with Patient: Total time spent is greater than 50% in coordination of care (as documented) at patient's floor/unit and/or counseling patient: Coding Level of Care Code 14181 SUB INP/OBS CARE 2/35MIN Diagnoses Delirium R41.0 Near syncope R55 SVT (supraventricular tachycardia) I47.10 Acute hyponatremia E87.1 Anxiety F41.9 Rheumatoid arthritis M06.9 Time Spent (min) 35
--- NOTE | 2024-07-21 11:40 | Psychiatric Progress Note ---
Date of Service July 21, 2024 Impression / Recommendations Impression Diagnostically consistent with likely delirium. 07/21/2024: Less confusion today, still with some mild paranoia vs suspiciousness/distrust. His response to antipsychotic medications and/or antibiotics highly suggestive of delirium given he is more oriented today, less disheveled, better able to follow nursing prompts and answer questions. Would attempt to limit use of multiple antipsychotic medications where possible to reduce risk for side effects. No evidence for EPS or side effects today from antipsychotics. 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 Overall, I spent a total of 45 minutes with this case including review of chart records, review of labwork, review of EKG QTc, direct evaluation of the patient at bedside, counseling the patient, discussion of the patient with the Nurse and with the hospitalist provider, discussion with the psychiatric liason during clinical rounds, review of collateral historian information from the family and documentation in the electronic health record. (1) Delirium: Plan 07/21/2024: -Can continue with risperidone 0.5mg BID ODT -Consider use of risperidone 1mg po or ODT daily prn for agitation rather than olanzapine -If IV haldol is used, continuous cardiac monitoring is recommended given potential for cardiac risks 07/20/2024: -Consider use of risperidone 0.5mg ODT as he is declining po medications vs olanzapine 5mg ODT -1-on-1 prn given level of agitation -Continue medical workup to rule out and treat any underlying causes contributing to potential delirium, avoid or limit use of deliriogenic medications (benzodiazepines, opioids, anticholinergics) -Continue with delirium prevention measures: raising blinds during the day, closing at night, frequent re-orientation, contact with family/friends, explaining procedures/nursing care measures prior to physical contact, correct any hearing and visual impairments -For behavioral emergency: olanzapine 5 mg IM x 1 (DO NOT exceed 10mg per 24 hours, check EKG if IM dose required, NEVER co-administer with IM or IV benzodiazepines). Interval History Identifying Information 69 yo man with history of anemia, anxiety, rheumatoid arthritis, history of duodenal ulcer, history of upper GI hemorrhage, and vitamin D deficiency. Psychiatry consult for "concerns for mental state". Chief Complaint "I hope ok". Subjective Subjective Patient was seen & assessed and interval progress reviewed. Less confused today, still seems suspicious at times, some thought disorganization. Cannot recall events overnight states "It felt like I was having a stroke". He is oriented to hospital, hospital address, month, year, city today. Struggles to recall why he's in the hospital. Physical Exam Psychiatric Orientation: alert and oriented x 3 Apperance: appropriately dressed and appropriately groomed Eye Contact: + fair eye contact Motor Behavior: no abnormal motor movements; n EPS Speech: normal rate/rhythm/volume of speech Affect: + constricted affect Mood: + anxious mood Thought Process: + circumstantial thought process Thought Content: + paranoid Insight: + limited insight Judgment: + poor judgement Vital Signs (Past 24 Hours) Last Vital Signs Temp 36.3 C L 07/21/24 08:28 Pulse 107 H 07/21/24 08:28 Resp 18 07/21/24 08:28 BP 102/59 L 07/21/24 08:28 Pulse Ox 92 07/21/24 08:28 O2 Del Method Room Air 07/21/24 08:28 O2 Flow Rate 2 07/16/24 20:17 Results & Data ([facility]) Laboratory Results Laboratory Results - last 24 hr 07/20/24 07/20/24 07/21/24 07:07 20:40 08:31 WBC RBC Hgb Hct MCV MCH MCHC RDW Std Deviation RDW Coeff of Carolyn Plt Count MPV Sodium Potassium Chloride Carbon Dioxide Anion Gap BUN Creatinine Est Cr Clr Drug Dosing eGFR BUN/Creatinine Ratio Glucose POC Glucose 106 H 104 H Calcium C-Reactive Protein 14.50 H 07/21/24 08:49 WBC 16.51 H RBC 3.96 L Hgb 11.4 L Hct 35.0 L MCV 88.4 MCH 28.8 MCHC 32.6 RDW Std Deviation 43.4 RDW Coeff of Carolyn 13.5 Plt Count 269 MPV 8.0 L Sodium 133 L Potassium 4.2 Chloride 101 Carbon Dioxide 23 Anion Gap 9 BUN 13 Creatinine 0.65 Est Cr Clr Drug Dosing 116.1 eGFR 101.37 BUN/Creatinine Ratio 20.0 Glucose 112 H POC Glucose Calcium 8.8 C-Reactive Protein Current Inpatient Medications Current Inpatient Medications: Current Inpatient Medications Acetaminophen (Acetaminophen 325 Mg Tab) 650 mg PO Q4H PRN PRN Reason: Pain or Fever Stop: 08/15/24 23:38 Last Admin: 07/18/24 19:45 Dose: 650 mg Ascorbic Acid (Ascorbic Acid 500 Mg Tab) 1,000 mg PO DAILY [facility] Stop: 08/16/24 08:59 Last Admin: 07/20/24 07:30 Dose: 1,000 mg Dextrose (Dextrose 50% 50 Ml Syringe) 25 - 50 ml IV UD PRN; Protocol PRN Reason: Hypoglycemia Protocol Stop: 08/15/24 23:38 Ferrous Sulfate (Ferrous Sulfate 325 Mg Tab) 650 mg PO DAILY GUSTAVO Stop: 08/16/24 08:59 Last Admin: 07/20/24 07:29 Dose: 650 mg Glucagon (Glucagon For Inj 1 Mg Vial) 1 mg SQ UD PRN; Protocol PRN Reason: Hypoglycemia Protocol Stop: 08/15/24 23:38 Glucose (Glucose 40% Gel 15 Gm Tube) 15 - 30 gm PO UD PRN; Protocol PRN Reason: Hypoglycemia Protocol Stop: 08/15/24 23:38 Glucose (Glucose 10 Tab/Tube) 4 - 8 tab PO UD PRN; Protocol PRN Reason: Hypoglycemia Protocol Stop: 08/15/24 23:38 Guaifenesin (Guaifenesin 600 Mg Tabcr) 1,200 mg PO Q12 [facility] Stop: 08/18/24 08:59 Last Admin: 07/20/24 20:40 Dose: 1,200 mg Piperacillin Sod/Tazobactam Sod (Zosyn) 4.5 gm in 100 mls @ 25 mls/hr IV Q8H [facility]; Protocol Stop: 07/22/24 18:59 Last Infusion: 07/21/24 09:06 Dose: Infused Sodium Chloride (Nss) 1,000 mls @ 80 mls/hr IV .[id number] [facility] Stop: 07/22/24 10:44 Insulin Aspart (Insulin Aspart Per Unit Charge) 0 units SC ACHS [facility] Stop: 08/16/24 07:29 Last Admin: 07/21/24 09:16 Dose: Not Given Lidocaine/Prilocaine (Lidocaine/Prilocaine 2.5% Ea Crm) 1 each EXT DAILY PRN PRN Reason: for injection site, blood suga Stop: 08/15/24 23:38 Last Admin: 07/17/24 19:52 Dose: 1 each Metoprolol Tartrate (Metoprolol Tartrate 25 Mg Tab) 25 mg PO DAILY PRN PRN Reason: svt Stop: 08/17/24 08:59 Last Admin: 07/19/24 06:38 Dose: 25 mg Miscellaneous (Carbohydrates For Hypoglycemia ) 15 - 30 gm PO UD PRN PRN Reason: Hypoglycemia Protocol Stop: 08/15/24 23:38 Multivitamins (Multivitamin Tab) 1 tab PO DAILY GUSTAVO Stop: 08/16/24 08:59 Last Admin: 07/20/24 07:30 Dose: 1 tab Olanzapine (Olanzapine 5 Mg Tablet) 5 mg PO DAILY PRN PRN Reason: Agitation Stop: 08/18/24 15:14 Last Admin: 07/20/24 20:39 Dose: 5 mg Risperidone (Risperidone Odt 0.5 Mg Soltab) 0.5 mg PO BID GUSTAVO Stop: 08/19/24 12:29 Last Admin: 07/20/24 20:40 Dose: 0.5 mg Sulfasalazine (Sulfasalazine 500 Mg Tablet) 500 mg PO BID GUSTAVO Stop: 08/16/24 08:59 Last Admin: 07/20/24 20:41 Dose: 500 mg Vitamin B Complex (Vitamin B Complex Tab) 1 tab PO DAILY GUSTAVO Stop: 08/16/24 08:59 Last Admin: 07/20/24 07:31 Dose: 1 tab Vitamin D (Cholecalciferol 125 Mcg (5,000 Units) Tab) 125 mcg PO DAILY GUSTAVO Stop: 08/16/24 08:59 Last Admin: 07/20/24 07:36 Dose: 125 mcg Vitamin D (Cholecalciferol 25 Mcg (1000 Units) Tab) 25 mcg PO QAM GUSTAVO Stop: 08/16/24 08:59 Last Admin: 07/20/24 07:32 Dose: 25 mcg Vitamin E (Tocopheryl, Dl-Alpha 400 Units 180 Mg Cap) 180 mg PO DAILY GUSTAVO Stop: 08/16/24 08:59 Last Admin: 07/20/24 07:28 Dose: 180 mg
[2024-07-21] MEDS: SODIUM CHLORIDE 0.9% 1,000 ML IV SCH (11:43)
--- NOTE | 2024-07-21 13:43 | XRay Report ---
XR chest 1V portable CLINICAL HISTORY: cough COMPARISON STUDY: 07/16/2024 FINDINGS: Heart size and pulmonary vasculature are normal. There is mild stranding at the right base. No other consolidation or pleural effusion. No pneumothorax. IMPRESSION: Atelectasis versus early pneumonia right lung base. ACT 112: Negative or not required by law. Electronically signed by: Merritt Simon M.D. 07/21/2024 1:41 PM
[2024-07-22 08:26] LABS: Hematocrit (blood only) 30.7 % (42.0-52.0); Hemoglobin 10.3 g/dl (14.0-18.0); Mean Corpuscular Hgb Conc 33.6 g/dL (32.0-36.0); Mean Corpuscular Volume 86.5 fL (80.0-100.0); Mean Platelet Volume 8.3 fL (9.4-12.4); Platelet Count 248 K/uL (130-400); RDW Coefficient of Variation 13.3 % (11.5-14.5); RDW Standard Deviation 41.7 fL (36.4-46.3); Red Blood Count 3.55 M/uL (4.70-6.10); White Blood Count 9.49 K/ul (4.8-10.8)
[2024-07-22 08:30] LABS: BUN Creatinine Ratio 16.7 (10-20); C Reactive Protein 12.78 mg/dl (0-0.5); Calcium 8.1 mg/dl (8.6-10.3); Creatinine Clr Calc Pharmacy 157.2 ml/min; Potassium 3.9 mmol/L (3.5-5.1)
--- NOTE | 2024-07-22 10:38 | Hospitalist Progress Note ---
Date of Service July 22, 2024 Assessment & Plan (1) Delirium: (2) Near syncope: (3) SVT (supraventricular tachycardia): (4) Acute hyponatremia: (5) Anxiety: (6) Rheumatoid arthritis: Plan Delirium: Etiology is uncertain Patient could have an underlying infection Urinalysis did dot suggest UTI WBC and CRP elevated, but improving Will continue empiric IV zosyn continue Risperidone 0.5mg BID for agitation Patient is much improved, awake and alert and intereactive #Near syncope- most likely not real syncope, going by the description - DDx: SVT, dehydration, anemia, anxiety - cont tele - Trop: 18.4 > 32.4 - ECHO: nl LV systolic fn, EF 65-70%, mild MR #SVT- - EKG notes rate of 150 - s/p adenosine 6 mg IV, then 12 mg IV from the ED with conversion to sinus rhythm - maintain K > 4 and Mg > 2 - s/p albumin and IVF - cardiology recs appreciated, metoprolol 25mg daily prn ordered #Hyponatremia - Na 125 on admission, currently 135 --> 132 --> 132 - trend at this time #RA - patient has been reluctant to use sulfasalazine at higher doses due to concerns regarding side effects - He tries to optimize his treatment with a number of herbal vitamins - He reports that recently his been trying to eat increased red meats and shrimp, which he knows is giving him problems in the past, and likely has contributed his symptoms now - He can continue his usual supplements - Continue sulfasalazine 0.5 mg p.o. 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 De Dios to Dr. Massey, but he reports he has been too sick to get into see him over the past few months - Patient also consider appointment with Dr. Tejeda to go over nutritional aspects #Anemia - baseline Hgb 13-14, currently stable around 11 - trend Hgb at this time, could have some dilution effect - cont iron malnutrition Patient has been refusing food will order nutritional supplements Deconditioning Will await PT eval #Dispo: PT / OT recs rehab, CM on board, referral sent to [facility] and [facility] also aware that pt is requesting medical and financial power of title attorney paperwork Patient not medically stable yet for discharge Admission and Anticipated Discharge Date Admission Date: July 19, 2024 Subjective patient seen and examined, more awake and interactive today, sitting up in the bed, still poor appetite Review of Systems Review of Systems: unable to obtain Physical Exam Physical Exam: The patient is awake, alert HEENT--PERRL, EOMI, mucous membranes and oropharynx mildly dry Neck--supple. No JVD. No bruits. Thyroid normal, trachea midline, no adenopathy. Heart--normal S1 and S2. No murmurs, rubs or gallops. Lungs--clear bilaterally, no respiratory distress, no accessory muscle use. Abdomen--normal bowel sounds and soft. Extremities--no cyanosis or clubbing. No edema. Dermatologic--normal skin turgor, normal color, no abnormal lymph nodes, no rash. Neurologic--cranial nerves II through XII grossly intact. Rheumatologic--normal range of motion. Psychiatric--normal affect. Results & Data Results & Data Vital Signs (Past 12 Hours) Vital Signs Temp Pulse Pulse Resp BP Pulse Ox O2 Del Method 07/22/24 07:46 98.1 F 94 H 16 65/61 L 95 Room Air 07/22/24 07:25 87 07/22/24 07:25 Room Air 07/22/24 03:31 98.8 F 91 H 18 108/71 Room Air 07/22/24 00:00 112 H 07/22/24 00:00 98.2 F 108 H 18 110/74 98 Room Air PG Care Time/CCT Total # of Minutes Spent Total Time Spent with Patient: Total time spent is greater than 50% in coordination of care (as documented) at patient's floor/unit and/or counseling patient: Coding Level of Care Code 49980 SUB INP/OBS CARE 2/35MIN Diagnoses Delirium R41.0 Near syncope R55 SVT (supraventricular tachycardia) I47.10 Acute hyponatremia E87.1 Anxiety F41.9 Rheumatoid arthritis M06.9 Time Spent (min) 35
[2024-07-22] MEDS: CALCIUM 600MG + VIT D 400 IU TAB PO SCH (11:12)
[2024-07-22] MEDS: MIDODRINE HCL 2.5 MG TAB PO SCH (11:42)
[2024-07-22] MEDS: ADENOSINE IV SOLN 3 MG/ML 2 ML VIAL IV STA (17:59)
[2024-07-22] MEDS: ADENOSINE IV SOLN 3 MG/ML 2 ML VIAL IV ONE (18:00)
--- NOTE | 2024-07-23 09:13 | Electrocardiogram Report ---
Test Reason : Blood Pressure : */* mmHG Vent. Rate : 162 BPM Atrial Rate : 78 BPM P-R Int : * ms QRS Dur : 100 ms QT Int : 272 ms P-R-T Axes : * 58 42 degrees QTcB Int : 446 ms Supraventricular tachycardia Otherwise normal ECG When compared with ECG of 19-Jul-2024 13:18, Vent. rate has increased by 59 bpm Confirmed by Daniel Craig ([id number]) on 07/23/2024 9:12:59 AM Referred By: REFERRED SELF Confirmed By: Daniel Craig
--- NOTE | 2024-07-23 09:14 | Electrocardiogram Report ---
Test Reason : Blood Pressure : */* mmHG Vent. Rate : 110 BPM Atrial Rate : 110 BPM P-R Int : 170 ms QRS Dur : 84 ms QT Int : 318 ms P-R-T Axes : 63 52 54 degrees QTcB Int : 430 ms Sinus tachycardia with with occasional Premature ventricular complexes Left atrial enlargement Low voltage QRS Borderline ECG When compared with ECG of 22-Jul-2024 17:34, Supraventricular tachycardia no longer present HR has decreased by 52 bpm Premature ventricular complexes now present Confirmed by Daniel Craig ([id number]) on 07/23/2024 9:13:42 AM Referred By: REFERRED SELF Confirmed By: Daniel Craig
--- NOTE | 2024-07-23 10:17 | Hospitalist Progress Note ---
Date of Service July 23, 2024 Assessment & Plan (1) Delirium: (2) Near syncope: (3) SVT (supraventricular tachycardia): (4) Acute hyponatremia: (5) Anxiety: (6) Rheumatoid arthritis: Plan Delirium: Etiology is uncertain, now resolved He is now awake, alert and oriented #Near syncope- most likely not real syncope, going by the description - DDx: SVT, dehydration, anemia, anxiety - cont tele - Trop: 18.4 > 32.4 - ECHO: nl LV systolic fn, EF 65-70%, mild MR #SVT- - EKG notes rate of 150 - s/p adenosine 6 mg IV, then 12 mg IV from the ED with conversion to sinus rhythm - maintain K > 4 and Mg > 2 - s/p albumin and IVF - cardiology recs appreciated, metoprolol 25mg daily prn ordered #Hyponatremia - Na 125 on admission, currently 135 --> 132 --> 132 - trend at this time #RA - patient has been reluctant to use sulfasalazine at higher doses due to concerns regarding side effects - He tries to optimize his treatment with a number of herbal vitamins - He reports that recently his been trying to eat increased red meats and shrimp, which he knows is giving him problems in the past, and likely has contributed his symptoms now - He can continue his usual supplements - He reports that due to insurance change he has had to have his diagnostic technologist changed from Dr. De Dios to Dr. Massey, but he reports he has been too sick to get into see him over the past few months - Patient also consider appointment with Dr. Tejeda to go over nutritional aspects #Anemia - baseline Hgb 13-14, currently stable around 11 - trend Hgb at this time, could have some dilution effect - cont iron malnutrition Patient has been refusing food will order nutritional supplements Deconditioning Will await PT eval #Dispo: PT / OT recs rehab, CM on board, referral sent to [facility] and [facility] also aware that pt is requesting medical and financial power of transactional attorney paperwork Patient is medically stable for rehab Admission and Anticipated Discharge Date Admission Date: July 19, 2024 Subjective patient seen and examined, more awake and interactive today, sitting up in the bed, still poor appetite Review of Systems Review of Systems: All systems reviewed are negative, apart from the ones contained in the history. Physical Exam Physical Exam: The patient is awake, alert HEENT--PERRL, EOMI, mucous membranes and oropharynx mildly dry Neck--supple. No JVD. No bruits. Thyroid normal, trachea midline, no adenopathy. Heart--normal S1 and S2. No murmurs, rubs or gallops. Lungs--clear bilaterally, no respiratory distress, no accessory muscle use. Abdomen--normal bowel sounds and soft. Extremities--no cyanosis or clubbing. No edema. Dermatologic--normal skin turgor, normal color, no abnormal lymph nodes, no rash. Neurologic--cranial nerves II through XII grossly intact. Rheumatologic--normal range of motion. Psychiatric--normal affect. Results & Data Results & Data Vital Signs (Past 12 Hours) Vital Signs Temp Pulse Pulse Resp BP Pulse Ox O2 Del Method 07/23/24 08:05 88 07/23/24 07:30 98.4 F 110 H 17 97/61 L 94 Room Air 07/23/24 03:37 98.2 F 96 H 20 95/59 L 92 Room Air 07/23/24 00:58 105 H 07/22/24 23:13 98.4 F 109 H 16 94/57 L 95 Room Air PG Care Time/CCT Total # of Minutes Spent Total Time Spent with Patient: Total time spent is greater than 50% in coordination of care (as documented) at patient's floor/unit and/or counseling patient: Coding Level of Care Code 47751 SUB INP/OBS CARE 2/35MIN Diagnoses Delirium R41.0 Near syncope R55 SVT (supraventricular tachycardia) I47.10 Acute hyponatremia E87.1 Anxiety F41.9 Rheumatoid arthritis M06.9 Time Spent (min) 35
[2024-07-24 09:08] LABS: Hemoglobin 10.6 g/dl (14.0-18.0); Mean Corpuscular Hemoglobin 28.8 pg (25.0-34.0); Mean Corpuscular Hgb Conc 33.1 g/dL (32.0-36.0); Mean Platelet Volume 8.2 fL (9.4-12.4); Platelet Count 224 K/uL (130-400); RDW Coefficient of Variation 13.5 % (11.5-14.5); RDW Standard Deviation 42.5 fL (36.4-46.3); Red Blood Count 3.68 M/uL (4.70-6.10); White Blood Count 8.38 K/ul (4.8-10.8)
[2024-07-24 09:25] LABS: BUN Creatinine Ratio 15.2 (10-20); Calcium 8.6 mg/dl (8.6-10.3); Creatinine Clr Calc Pharmacy 163.2 ml/min; Potassium 4.1 mmol/L (3.5-5.1)
--- NOTE | 2024-07-24 15:01 | Hospitalist Progress Note ---
Date of Service July 24, 2024 Assessment & Plan (1) Delirium: (2) Near syncope: (3) SVT (supraventricular tachycardia): (4) Acute hyponatremia: (5) Anxiety: (6) Rheumatoid arthritis: Plan Delirium: Etiology is uncertain, now resolved He is now awake, alert and oriented #Near syncope- most likely not real syncope, going by the description - DDx: SVT, dehydration, anemia, anxiety - cont tele - Trop: 18.4 > 32.4 - ECHO: nl LV systolic fn, EF 65-70%, mild MR #SVT- - EKG notes rate of 150 - s/p adenosine 6 mg IV, then 12 mg IV from the ED with conversion to sinus rhythm - maintain K > 4 and Mg > 2 - s/p albumin and IVF - cardiology recs appreciated, metoprolol 25mg daily prn ordered #Hyponatremia - Na 125 on admission, currently 135 --> 132 --> 132 - trend at this time #RA - patient has been reluctant to use sulfasalazine at higher doses due to concerns regarding side effects - He tries to optimize his treatment with a number of herbal vitamins - He reports that recently his been trying to eat increased red meats and shrimp, which he knows is giving him problems in the past, and likely has contributed his symptoms now - He can continue his usual supplements - He reports that due to insurance change he has had to have his loan servicing specialist changed from Dr. De Dios to Dr. Massey, but he reports he has been too sick to get into see him over the past few months - Patient also consider appointment with Dr. Tejead to go over nutritional aspects #Anemia - baseline Hgb 13-14, currently stable around 11 - trend Hgb at this time, could have some dilution effect - cont iron malnutrition Patient has been refusing food will order nutritional supplements Deconditioning Will await PT eval #Dispo: PT / OT recs rehab, CM on board, referral sent to [facility] and [facility] also aware that pt is requesting medical and financial power of music composition teacher paperwork Patient is medically stable for rehab when accepted Admission and Anticipated Discharge Date Admission Date: July 19, 2024 Subjective patient seen and examined, more awake and interactive today, sitting up in the bed, still poor appetite Review of Systems Review of Systems: All systems reviewed are negative, apart from the ones contained in the history. Physical Exam Physical Exam: The patient is awake, alert HEENT--PERRL, EOMI, mucous membranes and oropharynx mildly dry Neck--supple. No JVD. No bruits. Thyroid normal, trachea midline, no adenopathy. Heart--normal S1 and S2. No murmurs, rubs or gallops. Lungs--clear bilaterally, no respiratory distress, no accessory muscle use. Abdomen--normal bowel sounds and soft. Extremities--no cyanosis or clubbing. No edema. Dermatologic--normal skin turgor, normal color, no abnormal lymph nodes, no rash. Neurologic--cranial nerves II through XII grossly intact. Rheumatologic--normal range of motion. Psychiatric--normal affect. Results & Data Results & Data Vital Signs (Past 12 Hours) Vital Signs Temp Pulse Resp BP Pulse Ox O2 Del Method 07/24/24 10:48 99.0 F 106 H 19 100/65 94 Room Air 07/24/24 07:55 98.2 F 91 H 18 108/66 92 Room Air 07/24/24 03:18 98.8 F 93 H 20 107/70 95 Room Air PG Care Time/CCT Total # of Minutes Spent Total Time Spent with Patient: Total time spent is greater than 50% in coordination of care (as documented) at patient's floor/unit and/or counseling patient: Coding Level of Care Code 70200 SUB INP/OBS CARE 2/35MIN Diagnoses Delirium R41.0 Near syncope R55 SVT (supraventricular tachycardia) I47.10 Acute hyponatremia E87.1 Anxiety F41.9 Rheumatoid arthritis M06.9 Time Spent (min) 35
[2024-07-25] MEDS: MAGNESIUM SULFATE / D5W 1 GM/100 ML BAG IV ONE (03:29)
--- NOTE | 2024-07-25 04:40 | CT Scan Report ---
Exam(s): CT HEAD Without Contrast EXAM: CT Head Without Intravenous Contrast CLINICAL HISTORY: increased confusion. TECHNIQUE: Axial computed tomography images of the head/brain without intravenous contrast. CTDI is 36.55 mGy and DLP is 625.8 mGy-cm. Automated exposure control was utilized for the study. A dose lowering technique was utilized adhering to the principles of ALARA. COMPARISON: CT head without contrast dated 12/25/2016 FINDINGS: Brain: There are a few areas of decreased attenuation in the deep cerebral white matter consistent with mild small vessel ischemic/degenerative changes. The cerebral and cerebellar sulci are mildly prominent consistent with mild brain atrophy. No intracranial hemorrhage. No significant mass-effect. Stable encephalomalacia involving the posterior and inferior aspect of the left cerebellar hemisphere. Ventricles: No midline shift, effacement of the ventricles or significant reduction in size of the ventricles. Bones/joints: Unremarkable. No acute fracture. Soft tissues: Unremarkable. Vasculature: Atherosclerotic disease. Sinuses: Unremarkable as visualized. No acute sinusitis. Mastoid air cells: Unremarkable as visualized. No mastoid effusion. IMPRESSION: No acute intracranial process or significant alteration from the prior examination with stable encephalomalacia involving the inferior left cerebellar hemisphere. Electronically signed by: Ameya Chen MD 07/25/24 04:38 AM
--- NOTE | 2024-07-25 14:38 | Hospitalist Progress Note ---
Date of Service July 25, 2024 Assessment & Plan (1) Delirium: (2) Near syncope: (3) SVT (supraventricular tachycardia): (4) Acute hyponatremia: (5) Anxiety: (6) Rheumatoid arthritis: Plan Delirium: Etiology is uncertain, waxing and waning seems he is now getting more confused, after an initial improvement in mentation CT head done 07/24 did not show any acute pathology, only old encephalomacia will continue to redirect #Near syncope- most likely not real syncope, going by the description - DDx: SVT, dehydration, anemia, anxiety - cont tele - Trop: 18.4 > 32.4 - ECHO: nl LV systolic fn, EF 65-70%, mild MR #SVT- - EKG notes rate of 150 - s/p adenosine 6 mg IV, then 12 mg IV from the ED with conversion to sinus rhythm - maintain K > 4 and Mg > 2 - s/p albumin and IVF - cardiology recs appreciated, metoprolol 25mg daily prn ordered #Hyponatremia - Na 125 on admission, currently 135 --> 132 --> 132 - trend at this time #RA - patient has been reluctant to use sulfasalazine at higher doses due to concerns regarding side effects - He tries to optimize his treatment with a number of herbal vitamins - He reports that recently his been trying to eat increased red meats and shrimp, which he knows is giving him problems in the past, and likely has contributed his symptoms now - He can continue his usual supplements - He reports that due to insurance change 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 De Dios to Dr. Massey, but he reports he has been too sick to get into see him over the past few months - Patient also consider appointment with Dr. Tejeda to go over nutritional aspects #Anemia - baseline Hgb 13-14, currently stable around 11 - trend Hgb at this time, could have some dilution effect - cont iron malnutrition Patient has been refusing food will order nutritional supplements Deconditioning Will await PT eval #Dispo: PT / OT recs rehab, CM on board, referral sent to [facility] and [facility] CM also aware that pt is requesting medical and financial power of civil litigation attorney paperwork Patient is medically stable for rehab when accepted Admission and Anticipated Discharge Date Admission Date: July 19, 2024 Subjective patient seen and examined, seems he is now getting more confused, after an initial improvement in mentation Review of Systems Review of Systems: All systems reviewed are negative, apart from the ones contained in the history. Physical Exam Physical Exam: The patient is awake, alert HEENT--PERRL, EOMI, mucous membranes and oropharynx mildly dry Neck--supple. No JVD. No bruits. Thyroid normal, trachea midline, no adenopathy. Heart--normal S1 and S2. No murmurs, rubs or gallops. Lungs--clear bilaterally, no respiratory distress, no accessory muscle use. Abdomen--normal bowel sounds and soft. Extremities--no cyanosis or clubbing. No edema. Dermatologic--normal skin turgor, normal color, no abnormal lymph nodes, no rash. Neurologic--cranial nerves II through XII grossly intact. Rheumatologic--normal range of motion. Psychiatric--normal affect. Results & Data Results & Data Vital Signs (Past 12 Hours) Vital Signs Temp Pulse Resp BP Pulse Ox O2 Del Method 07/25/24 11:32 128 H 17 140/80 93 Room Air 07/25/24 08:15 Room Air 07/25/24 03:23 99.7 F H 128 H 22 141/82 H 94 Room Air PG Care Time/CCT Total # of Minutes Spent Total Time Spent with Patient: Total time spent is greater than 50% in coordination of care (as documented) at patient's floor/unit and/or counseling patient: Coding Level of Care Code 29162 SUB INP/OBS CARE 2/35MIN Diagnoses Delirium R41.0 Near syncope R55 SVT (supraventricular tachycardia) I47.10 Acute hyponatremia E87.1 Anxiety F41.9 Rheumatoid arthritis M06.9 Time Spent (min) 35
[2024-07-25] MEDS: OLANZapine 10 MG/2.1 ML SDV IM ONE (21:56)
--- NOTE | 2024-07-26 13:56 | Hospitalist Progress Note ---
Date of Service July 26, 2024 Assessment & Plan (1) Delirium: (2) Near syncope: (3) SVT (supraventricular tachycardia): (4) Acute hyponatremia: (5) Anxiety: (6) Rheumatoid arthritis: Plan Delirium: Etiology is uncertain, waxing and waning awake and alert and oriented this morning. Yesterday, he was confused CT head done 07/24 did not show any acute pathology, only old encephalomacia will continue to redirect #Near syncope- most likely not real syncope, going by the description - DDx: SVT, dehydration, anemia, anxiety - cont tele - Trop: 18.4 > 32.4 - ECHO: nl LV systolic fn, EF 65-70%, mild MR #SVT- - EKG notes rate of 150 - s/p adenosine 6 mg IV, then 12 mg IV from the ED with conversion to sinus rhythm - maintain K > 4 and Mg > 2 - s/p albumin and IVF - cardiology recs appreciated, metoprolol 25mg daily prn ordered #Hyponatremia - Na 125 on admission, currently 135 --> 132 --> 132 - trend at this time #RA - patient has been reluctant to use sulfasalazine at higher doses due to concerns regarding side effects - He tries to optimize his treatment with a number of herbal vitamins - He reports that recently his been trying to eat increased red meats and shrimp, which he knows is giving him problems in the past, and likely has contributed his symptoms now - He can continue his usual supplements - He reports that due to insurance change he has had to have 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 De Dios to Dr. Massey, but he reports he has been too sick to get into see him over the past few months - Patient also consider appointment with Dr. Tejeda to go over nutritional aspects #Anemia - baseline Hgb 13-14, currently stable around 11 - trend Hgb at this time, could have some dilution effect - cont iron malnutrition Patient has been refusing food will order nutritional supplements Deconditioning Will await PT eval #Dispo: PT / OT recs rehab, CM on board, referral sent to [facility] and [facility] CM also aware that pt is requesting medical and financial power of state's attorney paperwork Patient is medically stable for rehab when accepted Admission and Anticipated Discharge Date Admission Date: July 19, 2024 Subjective patient seen and examined, awake and alert Review of Systems Review of Systems: All systems reviewed are negative, apart from the ones contained in the history. Physical Exam Physical Exam: The patient is awake, alert HEENT--PERRL, EOMI, mucous membranes and oropharynx mildly dry Neck--supple. No JVD. No bruits. Thyroid normal, trachea midline, no adenopathy. Heart--normal S1 and S2. No murmurs, rubs or gallops. Lungs--clear bilaterally, no respiratory distress, no accessory muscle use. Abdomen--normal bowel sounds and soft. Extremities--no cyanosis or clubbing. No edema. Dermatologic--normal skin turgor, normal color, no abnormal lymph nodes, no rash. Neurologic--cranial nerves II through XII grossly intact. Rheumatologic--normal range of motion. Psychiatric--normal affect. Results & Data Results & Data Vital Signs (Past 12 Hours) Vital Signs Temp Pulse Resp BP Pulse Ox O2 Del Method 07/26/24 11:17 98.2 F 88 18 122/65 97 Room Air 07/26/24 07:43 98.8 F 95 H 18 110/46 L 93 Room Air PG Care Time/CCT Total # of Minutes Spent Total Time Spent with Patient: Total time spent is greater than 50% in coordination of care (as documented) at patient's floor/unit and/or counseling patient: Coding Level of Care Code 63843 SUB INP/OBS CARE 2/35MIN Diagnoses Delirium R41.0 Near syncope R55 SVT (supraventricular tachycardia) I47.10 Acute hyponatremia E87.1 Anxiety F41.9 Rheumatoid arthritis M06.9 Time Spent (min) 35
[2024-07-26] MEDS: guaiFENesin/DEXTROM SYRUP 100MG/10MG 5ML UDC PO PRN (18:15)
[2024-07-26] MEDS: guaiFENesin 600 MG TABCR PO SCH (20:25)
[2024-07-27 08:40] LABS: Hematocrit (blood only) 33.8 % (42.0-52.0); Hemoglobin 11.1 g/dl (14.0-18.0); Mean Corpuscular Hemoglobin 28.8 pg (25.0-34.0); Mean Corpuscular Hgb Conc 32.8 g/dL (32.0-36.0); Mean Corpuscular Volume 87.8 fL (80.0-100.0); Mean Platelet Volume 8.1 fL (9.4-12.4); Platelet Count 226 K/uL (130-400); RDW Coefficient of Variation 13.7 % (11.5-14.5); RDW Standard Deviation 43.9 fL (36.4-46.3); Red Blood Count 3.85 M/uL (4.70-6.10)
[2024-07-27 08:53] LABS: BUN Creatinine Ratio 16.4 (10-20); Calcium 8.8 mg/dl (8.6-10.3); Creatinine Clr Calc Pharmacy 122.1 ml/min
--- NOTE | 2024-07-27 12:45 | Hospitalist Progress Note ---
Date of Service July 27, 2024 Assessment & Plan (1) Delirium: (2) Near syncope: (3) SVT (supraventricular tachycardia): (4) Acute hyponatremia: (5) Anxiety: (6) Rheumatoid arthritis: Plan Delirium: Etiology is uncertain, waxing and waning awake and alert and oriented this morning. CT head done 07/24 did not show any acute pathology, only old encephalomalacia will continue to redirect #Near syncope- most likely not real syncope, going by the description - DDx: SVT, dehydration, anemia, anxiety - cont tele - Trop: 18.4 > 32.4 - ECHO: nl LV systolic fn, EF 65-70%, mild MR #SVT- - EKG notes rate of 150 - s/p adenosine 6 mg IV, then 12 mg IV from the ED with conversion to sinus rhythm - maintain K > 4 and Mg > 2 - s/p albumin and IVF - cardiology recs appreciated, metoprolol 25mg daily prn ordered #Hyponatremia - Na 125 on admission, currently 135 --> 132 --> 132 - trend at this time #RA - patient has been reluctant to use sulfasalazine at higher doses due to concerns regarding side effects - He tries to optimize his treatment with a number of herbal vitamins - He reports that recently his been trying to eat increased red meats and shrimp, which he knows is giving him problems in the past, and likely has contributed his symptoms now - He can continue his usual supplements - He reports that due to insurance change he has 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 De Dios to Dr. Massey, but he reports he has been too sick to get into see him over the past few months - Patient also consider appointment with Dr. Tejeda to go over nutritional aspects #Anemia - baseline Hgb 13-14, currently stable around 11 - trend Hgb at this time, could have some dilution effect - cont iron malnutrition Patient has been refusing food will order nutritional supplements Deconditioning Will await PT eval #Dispo: PT / OT recs rehab, CM on board, referral sent to [facility] and [facility] CM also aware that pt is requesting medical and financial power of commonwealth attorney paperwork He has been accepted at [facility], pending insurance auth Admission and Anticipated Discharge Date Admission Date: July 19, 2024 Subjective patient seen and examined, awake and alert Review of Systems Review of Systems: All systems reviewed are negative, apart from the ones contained in the history. Physical Exam Physical Exam: The patient is awake, alert HEENT--PERRL, EOMI, mucous membranes and oropharynx mildly dry Neck--supple. No JVD. No bruits. Thyroid normal, trachea midline, no adenopathy. Heart--normal S1 and S2. No murmurs, rubs or gallops. Lungs--clear bilaterally, no respiratory distress, no accessory muscle use. Abdomen--normal bowel sounds and soft. Extremities--no cyanosis or clubbing. No edema. Dermatologic--normal skin turgor, normal color, no abnormal lymph nodes, no rash. Neurologic--cranial nerves II through XII grossly intact. Rheumatologic--normal range of motion. Psychiatric--normal affect. Results & Data Results & Data Vital Signs (Past 12 Hours) Vital Signs Temp Pulse Resp BP Pulse Ox O2 Del Method 07/27/24 10:58 97.7 F 90 18 110/72 97 Room Air 07/27/24 10:25 Room Air 07/27/24 07:46 97.9 F 106 H 20 110/65 96 Room Air PG Care Time/CCT Total # of Minutes Spent Total Time Spent with Patient: Total time spent is greater than 50% in coordination of care (as documented) at patient's floor/unit and/or counseling patient: Coding Level of Care Code 63526 SUB INP/OBS CARE 2/35MIN Diagnoses Delirium R41.0 Near syncope R55 SVT (supraventricular tachycardia) I47.10 Acute hyponatremia E87.1 Anxiety F41.9 Rheumatoid arthritis M06.9 Time Spent (min) 35
[2024-07-28 11:04] VITALS: BP 110/69; RESP 20; TEMP 97.7; O2SAT 97
--- NOTE | 2024-07-28 13:18 | Discharge Summary ---
Date of Service July 28, 2024 Admission HPI Per Admitting Provider The patient is a 69-year-old male with past medical history including SNHL bilaterally, anemia, anxiety, rheumatoid arthritis, history of duodenal ulcer, history of upper GI hemorrhage, and vitamin D deficiency. He presents to the emergency department after symptoms as noted above. While in the emergency department, he was found to be in SVT 150, received adenosine 6 then 12 mg IV, with conversion to normal sinus rhythm. He was then referred for evaluation for admission Admission Exam (Per Admitting) Constitutional The patient is awake, alert and oriented 3, well developed and well nourished, normocephalic and atraumatic, lying in bed and in no acute distress. HEENT--PERRL, EOMI, mucous membranes and oropharynx mildly dry Neck--supple. No JVD. No bruits. Thyroid normal, trachea midline, no adenopathy. Heart--normal S1 and S2. No murmurs, rubs or gallops. Lungs--clear bilaterally, no respiratory distress, no accessory muscle use. Abdomen--normal bowel sounds and soft. Extremities--no cyanosis or clubbing. No edema. Dermatologic--normal skin turgor, normal color, no abnormal lymph nodes, no rash. Neurologic--cranial nerves II through XII grossly intact. Rheumatologic--normal range of motion. Psychiatric--normal affect. Discharge Data Consultations 07/16/24 22:07 ED Decision to Admit Stat 07/16/24 23:39 Consult Cardiology Routine 07/19/24 14:49 Consult Psychiatry Routine Hospital Course (1) Delirium: (2) Near syncope: (3) SVT (supraventricular tachycardia): (4) Acute hyponatremia: (5) Anxiety: (6) Rheumatoid arthritis: Plan Delirium: Etiology is uncertain, now resolved awake and alert and oriented this morning. CT head done 07/24 did not show any acute pathology, only old encephalomalacia will continue to redirect continue risperidol for 10 days, then taper #Near syncope- most likely not real syncope, going by the description - DDx: SVT, dehydration, anemia, anxiety - cont tele - Trop: 18.4 > 32.4 - ECHO: nl LV systolic fn, EF 65-70%, mild MR #SVT- - resolved #Hyponatremia - resolved #RA - patient has been reluctant to use sulfasalazine at higher doses due to concerns regarding side effects - He tries to optimize his treatment with a number of herbal vitamins - He reports that recently his been trying to eat increased red meats and shrimp, which he knows is giving him problems in the past, and likely has con tributed his symptoms now - He can continue his usual supplements - He reports that due to insurance change he has 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 De Dios to Dr. Massey, but he reports he has been too sick to get into see him over the past few months - Patient also consider appointment with Dr. Tejeda to go over nutritional aspects #Anemia - baseline Hgb 13-14, currently stable around 11 - trend Hgb at this time, could have some dilution effect - cont iron malnutrition Patient has been refusing food will order nutritional supplements Deconditioning Will await PT eval #Dispo: PT / OT recs rehab, CM on board, referral sent to [facility] and [facility] CM also aware that pt is requesting medical and financial power of research attorney paperwork He has been accepted at [facility], pending insurance auth Coding Level of Care Code 77047 INP/OBS DISCH >30 MIN Diagnoses Delirium R41.0 Near syncope R55 SVT (supraventricular tachycardia) I47.10 Acute hyponatremia E87.1 Anxiety F41.9 Rheumatoid arthritis M06.9 Time Spent (min) 35
[2024-07-28 14:47] VITALS: PULSE 92
== END 2024-07-28 14:43 | DRG 309 ==
LOC: ED 18:48 → 4W 18:48 → SUATTDRO 22:43 → 4W 23:07 → SUATTDRO 07-19 15:06

== ENCOUNTER 2024-07-31 14:40 | Inpatient (IN) ==
[2024-07-31] MEDS: SODIUM CHLORIDE 0.9% 1,000 ML IV ONE (15:08)
--- NOTE | 2024-07-31 15:17 | Emergency Department Note ---
Impression & Plan Pulmonary embolism, Sinus tachycardia, Acute hypotension, Pleural effusion ED Provider Note NAME: ZACHARY FARRIS AGE: 69 SEX: M : 1955 ARRIVES VIA: Ambulance INFORMANT: Patient, ED PROVIDER(S): Kerwin Frausto DO CHIEF COMPLAINT: Elevated heart rate HPI: The patient is a 69-year-old male who presented to the emergency department for an evaluation of elevated heart rate. The patient has a history of SVT. He had an elevated heart rate at his personal [facility]. He was treated with a beta-wong and then sent to the emergency department. The patient states that his symptoms are significantly improved at this time. He denies having any chest pain or difficulty breathing. He denies having any recent trauma. He states he has recently been not eating as well as usual. The patient denies having any dark or tarry stools. ROS: See above HPI for pertinent positives & negatives. A total of 10 systems reviewed and were otherwise negative. PAST MEDICAL HISTORY: See Below PAST SURGICAL HISTORY: See Below FAMILY HISTORY: See Below SOCIAL HISTORY: See Below HOME MEDICATIONS: See Below ALLERGIES: See Below VITALS: See Below PHYSICAL EXAMINATION: GENERAL: Patient is awake alert in no acute distress patient is resting comfortably and showing no signs of anxiety EYES: The conjunctivae are clear. The pupils are round and reactive. EARS, NOSE, MOUTH AND THROAT: The nose is without any evidence of any deformity. NECK: The neck is nontender and supple. RESPIRATORY: Normal respiratory effort is noted there is no evidence of wheezing rhonchi or rales CARDIOVASCULAR: Regular rate and rhythm noted there no murmurs rubs or gallops normal S1 normal S2. GASTROINTESTINAL: The abdomen is soft. Abdomen is nontender. MUSCULOSKELETAL/EXTREMITIES: There is no evidence of gross deformity full range of motion is noted in the hips and shoulders. SKIN: Skin is warm and dry. There is no calf tenderness or pedal edema. NEUROLOGIC: Patient is awake alert and oriented x3 MEDICAL DECISION MAKING: The patient is a 69-year-old male who presented to the emergency department from his [facility] for an evaluation of tachycardia. The patient reportedly has a history of SVT but when I asked the patient about this he says he does not. He has a history of rheumatoid arthritis and is mostly immobile. The patient having high heart rate reportedly at 170s prior to arrival. Reportedly he was also given a dose of a beta-wong although I do not see this on his medication list once he had this high heart rate. The patient states he has been weak and not eating well. He was found to be hypotensive. Initially I thought this could be secondary to him not eating and some degree of dehydration added to the medication he was given for his heart rate. Because of his high heart rate further laboratory and radiographic studies were obtained including a D-dimer which was elevated. This prompted a CT of the chest which appears to be consistent with bilateral pulmonary emboli. He was started on IV heparin. I discussed his condition with the on-call [facility]. They have agreed to evaluate the patient in the emergency department. Triage Nursing notes reviewed. Prior medical records reviewed Vital Signs: reviewed and remarkable for hypotension. Differential diagnosis: Premature contractions, electrolyte abnormality, cardiac dysrhythmia, thyroid dysfunction, pulmonary embolism, infection, gastrointestinal, as well as other pathologies. ER treatment provided: See below Diagnostics interpreted by me: ECG: EKG was obtained in the emergency department. My interpretation is sinus tachycardia at 107 bpm. There was no ectopy. There was no acute ST segment abnormalities noted. This was compared to a tracing from July 17, 2024. No changes were noted. Cardiac Monitoring: An order was placed for continuous cardiac monitoring. The monitor shows a rate of 90 bpm with sinus rhythm. Laboratory studies: As stated above and show below. Imaging studies: See below. Radiographic imaging was reviewed by myself Consultation(s): I discussed this case with Dr. Pandey who is on-call for the [facility] group. I discussed this case with Dr. Kelley who is on-call for the [facility] group. ED COURSE: Procedures: none Critical Care: I have personally spent greater than 45 minutes of critical care time in the direct management of this patient. This includes bedside care, interpretation of diagnostic studies, and testing, discussion with consultants, patient, and family members, and other required patient management activities. This 45 minutes is in excess of all separately billable procedures. Past Med/Surg History Problem List (Updated 07/31/24 @ 18:42 by Kerwin Frausto DO) Pleural effusion (Acute) Acute hypotension (Acute) Sinus tachycardia (Acute) Pulmonary embolism (Acute) Delirium Near syncope Elevated lactic acid level (Acute) Acute hyponatremia (Acute) SVT (supraventricular tachycardia) (Acute) Syncope and collapse (Acute) Sensorineural hearing loss (SNHL) of both ears Rash, skin Health care maintenance Hyperglycemia Deformity of left ankle joint Anemia (Acute) Anxiety (Acute) Colon cancer screening (Acute) Decreased hearing (Acute) History of duodenal ulcer (Acute) History of upper gastrointestinal hemorrhage (Acute) Rheumatoid arthritis (Acute) Vitamin D deficiency disease (Acute) Medical History Encounter for screening laboratory testing for COVID-19 virus Left ankle pain Foreign body in ear Otitis externa Duodenal ulcer History of duodenal ulcer Anxiety Left wrist sprain GI bleed Concussion Anemia Rheumatoid arthritis Surgical History S/P tooth extraction S/P appendectomy Family History Mother Diabetes Hypertension Stroke Father Rheumatic arteritis Neoplasm of esophagus Sister Allergy Social History Smoking Status: Former smoker Hx Alcohol Use: No Hx Substance Use: No Preferred Language: Wolof Communication Ability: Effective Tool Distributor Required: No Beliefs That Will Affect Care: None marital status: Single Current Living Situation: Alone current occupational status: retired Feels Safe at Home: Hesitant to Answer Seatbelt Use: always Assistive Devices: None Allergies Allergies Allergy/AdvReac Type Severity Reaction Status Date / Time bee venom protein (honey bee) Allergy Mild Anaphylaxis Verified 07/16/24 22:50 Corticosteroids Allergy Mild ANAPHYLAXIS Verified 05/26/24 13:50 (Glucocorticoids) soy Allergy Mild Anaphylaxis Verified 07/16/24 22:50 wheat Allergy Mild ANAPHYLAXIS Verified 05/26/24 13:50 olive oil Allergy Unknown Unknown Verified 07/16/24 22:50 NSAIDS (Non-Steroidal AdvReac Intermediate BLEEDING Verified 07/16/24 22:50 Anti-Inflamma Home Meds Home Medications Medication Instructions Recorded Confirmed ascorbate calcium (vitamin C) 500 1 gm PO DAILY 03/01/19 07/31/24 mg tablet cholecalciferol (vitamin D3) 50 6,000 units PO DAILY 03/01/19 07/31/24 mcg (2,000 unit) capsule ferrous sulfate 325 mg (65 mg 650 mg PO DAILY 03/01/19 07/31/24 iron) tablet flaxseed oil 15 - 45 ml miscellaneous DAILY 03/01/19 07/31/24 multivitamin (Daily Multi-Vitamin 1 tab PO DAILY 03/01/19 07/31/24 tablet) vitamin E (dl, acetate) 180 mg 400 units PO DAILY 03/01/19 07/31/24 (400 unit) capsule chlorophyllin-alfalfa 20 mg-100 mg 1 tab PO BID 03/12/23 07/31/24 tablet (Chlorophyll (with alfalfa)) vitamin B complex 1 tab PO DAILY 07/16/24 07/31/24 Previous Rx's Medication Instructions Recorded epinephrine 0.3 mg/0.3 mL 0.3 mg (0.3 mL) IM UD PRN 11/06/22 injection, auto-injector (EpiPen) anaphylaxis #2 ea lidocaine-prilocaine 2.5 %-2.5 % 1 applic topical .COMPLEX PRN for 07/16/24 topical cream injection site, blood sugar fingersticks #30 grams sulfasalazine 500 mg tablet 0.5 g PO BID #60 tabs 07/17/24 midodrine 2.5 mg tablet 2.5 mg PO TID@0800,1200,1700 #90 07/28/24 tabs risperidone 0.5 mg disintegrating 0.5 mg PO BID #20 tabs 07/28/24 tablet Results & Data (ED) Vital Signs Vital Signs - 24 hr 07/31/24 14:40 07/31/24 14:40 07/31/24 15:15 Temperature 36.9 C Temperature Source Oral Pulse Rate 105 H 95 H Pulse Rate from SpO2 Sensor 97 H Respiratory Rate 18 16 Respiratory Effort / Characteristics Non-Labored Respiratory Depth Normal Blood Pressure 86/61 L 84/62 L Blood Pressure Mean 69 69 Pulse Oximetry 93 90 Oxygen Delivery Method Room Air Room Air Sepsis Recent Fever Within 48 Hours No Sepsis New/Unexplained Change in Mental Status No Sepsis Action Taken by Nursing Physician Notified 07/31/24 15:30 07/31/24 16:00 07/31/24 16:00 Temperature Temperature Source Pulse Rate 94 H 90 90 Pulse Rate from SpO2 Sensor 89 97 H Respiratory Rate 17 22 Respiratory Effort / Characteristics Respiratory Depth Blood Pressure 82/59 L 110/80 Blood Pressure Mean 66 90 Pulse Oximetry 94 94 Oxygen Delivery Method Sepsis Recent Fever Within 48 Hours Sepsis New/Unexplained Change in Mental Status Sepsis Action Taken by Nursing 07/31/24 16:15 Temperature Temperature Source Pulse Rate 90 Pulse Rate from SpO2 Sensor Respiratory Rate Respiratory Effort / Characteristics Respiratory Depth Blood Pressure 91/59 L Blood Pressure Mean 70 Pulse Oximetry 92 Oxygen Delivery Method Sepsis Recent Fever Within 48 Hours Sepsis New/Unexplained Change in Mental Status Sepsis Action Taken by Shelter Medications Current Medication List: was personally reviewed by me Laboratory Data Attestation: I reviewed the patient's lab results. 07/31/24 15:06 07/31/24 15:06 Lab Results 07/31/24 07/31/24 Range/Units 15:06 15:10 WBC 10.91 H (4.8-10.8) K/ul RBC 3.62 L (4.70-6.10) M/uL Hgb 10.5 L (14.0-18.0) g/dl Hct 31.5 L (42.0-52.0) % MCV 87.0 (80.0-100.0) fL MCH 29.0 (25.0-34.0) pg MCHC 33.3 (32.0-36.0) g/dL RDW Std Deviation 43.1 (36.4-46.3) fL RDW Coeff of Carolyn 13.6 (11.5-14.5) % Plt Count 277 (130-400) K/uL MPV 8.5 L (9.4-12.4) fL Immature Gran % (Auto) 0.6 % Neut % (Auto) 75.9 % Lymph % (Auto) 13.2 % [place] % (Auto) 7.7 % Eos % (Auto) 2.1 % Baso % (Auto) 0.5 % Neut # (Auto) 8.28 H (1.40-6.50) K/uL Lymph # (Auto) 1.44 (1.20-3.40) K/uL [place] # (Auto) 0.84 H (0.11-0.59) K/uL Eos # (Auto) 0.23 (0.00-0.50) K/uL Baso # (Auto) 0.05 (0.00-0.20) K/uL Immature Gran # (Auto) 0.07 (0.01-0.20) K/uL PT 10.7 (9.0-12.0) Seconds INR 1.0 (0.9-1.1) APTT 27 (21-31) Seconds PTT Ratio 1.0 D-Dimer 59394 H* (0-500) ug/L FEU Sodium 133 L (136-145) mmol/L Potassium 4.0 (3.5-5.1) mmol/L Chloride 101 (98-107) mmol/L Carbon Dioxide 24 (21-32) mmol/L Anion Gap 8 (3-11) BUN 12 (6-23) mg/dl Creatinine 0.69 (0.6-1.4) mg/dl Est Cr Clr Drug Dosing 112.6 ml/min eGFR 99.56 BUN/Creatinine Ratio 17.4 (10-20) Glucose 115 H (70-99(Fasting)) mg/dl Calcium 8.7 (8.6-10.3) mg/dl Magnesium 1.8 (1.7-2.4) mg/dl Total Bilirubin 0.3 (0.2-1.0) mg/dl AST 19 (13-39) U/L ALT 13 (7-52) U/L Alkaline Phosphatase 69 (34-104) U/L Troponin I High Sens 14.1 (0-20) pg/ml Total Protein 5.8 L (6.0-8.3) gm/dl Albumin 2.8 L (3.4-5.0) gm/dl Globulin 3.0 (2.5-4.0) gm/dl Albumin/Globulin Ratio 0.9 (0.9-2) TSH 2.723 (0.300-4.500) uIu/ml SARS-CoV-2 (PCR) NEGATIVE (Negative) Influenza Type A (PCR) Negative (Neg) Influenza Type B (PCR) Negative (Neg) RSV (RT-PCR) Negative (Neg) Administered Medications Heparin Sodium/Dextrose (Heparin Sodium/Dextrose) 25,000 units in 500 mls @ 0.02 mls/hr IV .Q24H [facility]; Protocol Stop: 08/30/24 18:29 Last Admin: 07/31/24 18:54 Dose: 1,450 units/hr, 29 mls/hr Documented By: HB Co-signed By: ES Discontinued Medications Heparin Sodium (Porcine) (Heparin Sod (Porcine) 1000 Unit/Ml) 1 units IV NOW ONE Stop: 07/31/24 18:19 Last Admin: 07/31/24 18:55 Dose: 6,000 units Documented By: KONRAD Co-signed By: ANA MARÍA Heparin Sodium/Dextrose (Heparin Iv Adult Wt-Based Standard W/ Initial Bolus Protocol) 1 each IV NOW STA; Protocol Stop: 07/31/24 18:04 Last Admin: 07/31/24 18:55 Dose: 1 each Documented By: KONRAD Sodium Chloride (Nss) 1,000 mls @ 999 mls/hr IV .Q1H1M ONE Stop: 07/31/24 15:50 Last Infusion: 07/31/24 16:10 Dose: Infused Documented By: Admin: 07/31/24 15:08 Dose: 999 mls/hr Documented By: KONRAD Sodium Chloride (Nss) 500 mls @ 999 mls/hr IV .Q31M ONE Stop: 07/31/24 18:33 Last Admin: 07/31/24 18:38 Dose: 999 mls/hr Documented By: KONRAD Ioversol (Optiray 320 125ml) 119 ml IV ONCE ONE Stop: 07/31/24 17:28 Last Admin: 07/31/24 17:28 Dose: 119 ml Documented By: GURDEEP Imaging Data Attestation: I personally reviewed and interpreted this imaging study as follows: My Impression: 1 view chest x-ray was obtained in the emergency department. My interpretation is no free air or definite infiltrate, final report below. CT of the chest was obtained. My interpretation is feeling defect consistent with pulmonary emboli, final report below. Radiologist's Impression: Chest X-Ray 07/31/24 14:51 XR chest 1V portable HISTORY: 69 years-old Male Dysrhythmia acute chest pain COMPARISON: 07/21/2024 TECHNIQUE: AP view the chest FINDINGS: Cardiac silhouette is normal in size. Mild subsegmental bibasilar densities with blunting of the costophrenic angles. No pneumothorax or overt pulmonary edema. Degenerative changes of the shoulders and spine with sigmoidal scoliosis. IMPRESSION: Mild bibasilar opacities favor atelectasis. ACT 112: Negative or not required by law. The above report was generated using voice recognition software. It may contain grammatical, syntax or spelling errors. Electronically signed by: Bjorn Mccoy M.D. 07/31/2024 3:17 PM Chest CTA 07/31/24 16:13 EXAM: CT Angiography Chest With Intravenous Contrast INDICATION: Tachycardia. Weight loss. TECHNIQUE: Axial computed tomographic angiography images of the chest with intravenous contrast. Sagittal and coronal reformatted images were created and reviewed. This CT exam was performed using one or more of the following dose reduction techniques: automated exposure control, adjustment of the mA and/or kV according to patient size, and/or use of iterative reconstruction technique. MIP reconstructed images were created and reviewed. CONTRAST: 119ml of Optiray 320 was administered intravenously. COMPARISON: 12/25/2016 FINDINGS: Pulmonary arteries: There are pulmonary emboli in the distal main pulmonary arteries with segmental propagation right greater than left. No saddle component. Aorta: Normal contour. No aneurysm or dissection. Lungs and pleural spaces: There are very small layering bilateral pleural effusions. Scattered groundglass foci noted in the right upper lobe. There is mild dependent atelectasis in both lower lobes. There is a calcified granuloma in the right lower lung. Heart: Mild cardiomegaly mostly involving the left side. No pericardial effusion or right heart strain. Bones/joints: New well-defined lytic lesions noted in the visualized portion of each humeral head with joint effusions left greater than right. Degenerative changes noted in the scoliotic spine. No acute osseous abnormality noted. Soft tissues: No abnormality noted. Lymph nodes: There are shotty bilateral axillary, aorta pulmonic, precarinal and bilateral hilar lymph nodes likely reactive. Stomach and bowel: Collapsed stomach suboptimally assessed. Large amounts of stool noted in the transverse colon. IMPRESSION: 1. Bilateral moderate pulmonary embolic burden without evidence of right heart strain. 2. Scattered groundglass opacities in the right upper lobe may reflect infarcts. 3. Small bilateral pleural effusions and basilar atelectasis present. ACT 112: Negative or not required by law. Electronically signed by Elizabeth Whyte 07-31-2024 5:52 PM Discharge Plan Visit Data Chief Complaint: Tachycardia Stated Complaint: TACHYCARDIA ED Provider: Kerwin Frausto Discharge Problem: Pulmonary embolism, Sinus tachycardia, Acute hypotension, Pleural effusion Patient Disposition: Being Evaluated by Hospitalist Forms Stand Alone Forms: [employer] Prescriptions Prescriptions: No Action lidocaine-prilocaine 2.5-2.5 % cream 1 applic topical .COMPLEX PRN (Reason: for injection site, blood sugar fingersticks) Qty: 30 3RF Rx Instructions: 1 applic topically PRN; sulfasalazine 500 mg tablet 0.5 g PO BID Qty: 60 0RF epinephrine [EpiPen] 0.3 mg/0.3 mL auto-injector 0.3 mg IM UD PRN (Reason: anaphylaxis) Qty: 2 0RF flaxseed oil oil 15 - 45 ml miscellaneous DAILY ferrous sulfate 325 mg (65 mg iron) tablet 650 mg PO DAILY multivitamin [Daily Multi-Vitamin] tablet 1 tab PO DAILY ascorbate calcium (vitamin C) 500 mg tablet 1 gm PO DAILY cholecalciferol (vitamin D3) 2,000 unit capsule 6,000 units PO DAILY vitamin E (dl, acetate) 400 unit capsule 400 units PO DAILY Chlorophyll (with alfalfa) 20-100 mg tablet 1 tab PO BID vitamin B complex Tablet 1 tab PO DAILY midodrine 2.5 mg Tablet 2.5 mg PO TID@0800,1200,1700 Qty: 90 0RF risperidone 0.5 mg Tablet,Disintegrating 0.5 mg PO BID Qty: 20 0RF Referrals Referrals: Steffanie Desai MD [Primary Care Provider] - Discharge Problem: Pulmonary embolism Qualifiers: Pulmonary embolism type: unspecified Chronicity: acute Acute cor pulmonale presence: unspecified Qualified Code(s): I26.99 - Other pulmonary embolism without acute cor pulmonale
[2024-07-31 15:32] LABS: Basophils # (auto) 0.05 K/uL (0.00-0.20); Basophils % (auto) 0.5 %; Eosinophils # (auto) 0.23 K/uL (0.00-0.50); Eosinophils % (auto) 2.1 %; Hematocrit (blood only) 31.5 % (42.0-52.0); Hemoglobin 10.5 g/dl (14.0-18.0); Immature Granulocytes # (auto) 0.07 K/uL (0.01-0.20); Immature Granulocytes % (auto) 0.6 %; Lymphocytes # (auto) 1.44 K/uL (1.20-3.40); Lymphocytes % (auto) 13.2 %; Mean Corpuscular Hgb Conc 33.3 g/dL (32.0-36.0); Mean Platelet Volume 8.5 fL (9.4-12.4); Monocytes # (auto) 0.84 K/uL (0.11-0.59); Monocytes % (auto) 7.7 %; Neutrophils # (auto) 8.28 K/uL (1.40-6.50); Neutrophils % (auto) 75.9 %; Platelet Count 277 K/uL (130-400); RDW Coefficient of Variation 13.6 % (11.5-14.5); RDW Standard Deviation 43.1 fL (36.4-46.3); Red Blood Count 3.62 M/uL (4.70-6.10); White Blood Count 10.91 K/ul (4.8-10.8)
--- NOTE | 2024-07-31 15:40 | XRay Report ---
XR chest 1V portable HISTORY: 69 years-old Male Dysrhythmia acute chest pain COMPARISON: 07/21/2024 TECHNIQUE: AP view the chest FINDINGS: Cardiac silhouette is normal in size. Mild subsegmental bibasilar densities with blunting of the cost ophrenic angles. No pneumothorax or overt pulmonary edema. Degenerative changes of the shoulders and spine with sigmoidal scoliosis. IMPRESSION: Mild bibasilar opacities favor atelectasis. ACT 112: Negative or not required by law. The above report was generated using voice recognition software. It may contain grammatical, syntax o r spelling errors. Electronically signed by: Bjorn Mccoy M.D. 07/31/2024 3:17 PM
[2024-07-31 15:51] LABS: Albumin Globulin Ratio 0.9 (0.9-2); Albumin Level 2.8 gm/dl (3.4-5.0); BUN Creatinine Ratio 17.4 (10-20); Bilirubin,Total 0.3 mg/dl (0.2-1.0); Calcium 8.7 mg/dl (8.6-10.3); Creatinine Clr Calc Pharmacy 112.6 ml/min; Magnesium 1.8 mg/dl (1.7-2.4); Total Protein 5.8 gm/dl (6.0-8.3)
[2024-07-31 15:57] LABS: Troponin I High Sensitivity 14.1 pg/ml (0-20)
[2024-07-31 16:06] LABS: Thyroid Stimulating Hormone 2.723 uIu/ml (0.300-4.500)
[2024-07-31 16:07] LABS: Partial Thromboplastin Time 27 Seconds (21-31); Prothrombin Time 10.7 Seconds (9.0-12.0)
[2024-07-31 16:08] LABS: Influenza A virus by PCR Negative (Neg); Influenza B virus by PCR Negative (Neg); RSV by PCR Negative (Neg); SARS CoV2 RNA(COVID-19) Ceph NEGATIVE (Negative)
[2024-07-31 16:15] LABS: D Dimer 12570 ug/L FEU (0-500)
[2024-07-31] MEDS: OPTIRAY 320 125ml IV ONE (17:28)
--- NOTE | 2024-07-31 17:53 | CT Scan Report ---
EXAM: CT Angiography Chest With Intravenous Contrast INDICATION: Tachycardia. Weight loss. TECHNIQUE: Axial computed tomographic angiography images of the chest with intravenous contrast. Sagittal and coronal reformatted images were created and reviewed. This CT exam was performed using one or more of the following dose reduction techniques: automated exposure control, adjustment of the mA and/or kV according to patient size, and/or use of iterative reconstruction technique. MIP reconstructed images were created and reviewed. CONTRAST: 119ml of Optiray 320 was administered intravenously. COMPARISON: 12/25/2016 FINDINGS: Pulmonary arteries: There are pulmonary emboli in the distal main pulmonary arteries with segmental propagation right greater than left. No saddle component. Aorta: Normal contour. No aneurysm or dissection. Lungs and pleural spaces: There are very small layering bilateral pleural effusions. Scattered groundglass foci noted in the right upper lobe. There is mild dependent atelectasis in both lower lobes. There is a calcified granuloma in the right lower lung. Heart: Mild cardiomegaly mostly involving the left side. No pericardial effusion or right heart strain. Bones/joints: New well-defined lytic lesions noted in the visualized portion of each humeral head with joint effusions left greater than right. Degenerative changes noted in the scoliotic spine. No acute osseous abnormality noted. Soft tissues: No abnormality noted. Lymph nodes: There are shotty bilateral axillary, aorta pulmonic, precarinal and bilateral hilar lymph nodes likely reactive. Stomach and bowel: Collapsed stomach suboptimally assessed. Large amounts of stool noted in the transverse colon. IMPRESSION: 1. Bilateral moderate pulmonary embolic burden without evidence of right heart strain. 2. Scattered groundglass opacities in the right upper lobe may reflect infarcts. 3. Small bilateral pleural effusions and basilar atelectasis present. ACT 112: Negative or not required by law. Electronically signed by Elizabeth Whyte 07-31-2024 5:52 PM
[2024-07-31] MEDS: SODIUM CHLORIDE 0.9% 500 ML IV ONE (18:38)
[2024-07-31] MEDS: HEPARIN 25000 UNIT/500 ML 25,000 UNITS/500 ML BAG IV SCH (18:54)
[2024-07-31] MEDS: HEPARIN SOD (PORCINE) 1000 UNIT/ML IV ONE (18:55)
[2024-07-31] MEDS: Heparin IV Adult Wt-Based Standard w/ INITIAL Bolus Protocol IV STA (18:55)
[2024-07-31] MEDS: ACETAMINOPHEN 1,000 MG/100 ML VIAL IV STA (19:21)
[2024-07-31] MEDS: ACETAMINOPHEN 325 MG TAB PO STA (19:22)
--- NOTE | 2024-07-31 19:37 | History & Physical Report ---
Date of Service July 31, 2024 Assessment & Plan (1) Pulmonary embolism: Plan: 69yo male with long-standing rheumatoid arthritis and recent admission for SVT/delirium/deconditioning/ambulatory dysfunction presents with tachycardia noted at [facility]. Upon presentation had significantly elevated d-dimer level which prompted CTA chest to r/o PE. CTA chest with b/l PEs - moderate clot burden. Tachycardia likely 2nd to PEs. Risk factors - immobility, recent prolonged hospital stay. Can't rule out malignancy (see #2 below). Already started on heparin infusion in the ER. Check dopplers of legs for DVT. Check echo to reassess RV function. Telemetry. At this time should be candidate for DOAC. (2) Lytic bone lesions on xray: Plan: CTA chest tonight incidentally showed the following abnormality -- "New well-defined lytic lesions noted in the visualized portion of each humeral head with joint effusions left greater than right." This is worrisome for malignancy - e.g. multiple myeloma, etc. Cannot rule out mets from distant site. Check SPEP, UPEP. Consider CT abd/pelvis. He has had at least 10 kg of weight loss over the previous year and appears to be failing to thrive. (3) Sinus tachycardia: Plan: 2nd to #1 improving with supportive care, IV fluids can't rule out SVT at the [facility] when they found his HR to be in the 170s -- no EKG from that incident no SVT seen thus far in the ER cont telemetry monitoring (4) Acute hypotension: Plan: 2nd to PEs 2nd to dehydration (markedly volume depleted on exam) improving cont IV hydration overnight (5) Acute hyponatremia: Plan: 2nd volume depletion based on his examination isotonic fluids overnight, repeat BMP am tomorrow (6) Rheumatoid arthritis: Plan: long-standing, previously followed by Dr Rich Tilley currently only on sulfasalazine BID he has advanced joint changes on exam from his RA suspect uncontrolled RA for lengthy period of time reading the chart it seems he has been resistant to more aggressive therapy for his RA in the past (7) History of duodenal ulcer: Plan: place on PPI therapy in the setting of needing anticoagulation (8) Encephalopathy: Plan: patient had acute encephalopathy during his prior hospital stay requiring use of antipsychotic therapy (risperdal) he had CT head at that time that was negative for acute findings he was seen by psychiatry for the confusion TSH wnl remarkably he is oriented x 3 during my admission assessment but still is confused, was paranoid about certain things, and had odd behaviors & mannerisms uncertain what is neurocognitive baseline is in light of the abnormal findings of the shoulders consider MRI brain to r/o mets, subacute CVA, etc. check B12 level am check B1 level Plan attempted to call pt's sister (per record lives in [place]) - Wanda Quijano - at # listed in chart no answer, went to [employer] left message that her brother was being admitted to [facility] will attempt to call tomorrow message left about 2029 eastern time History of Present Illness Chief Complaint: tachycardia Primary Care Provider: Steffanie Desai MD 69yo male with history of long-standing rheumatoid arthritis, PUD, and recent hospitalization from 07/17/24 to 07/28/24 for SVT (stay complicated by delirium & placement issues) presents from [facility] due to tachycardia. By report his HR was found to be in the 170s and was given a beta wong for such. His HR continued to be high and thus he was brought to the ER. Upon arrival to [facility] his HR was in the low 100s. His blood pressure was also found to be low. During my assessment the patient was lying flat in bed without any distress. Although he was oriented x 3 and could provide medical history he was confused at times and even paranoid, sometimes asking me "what's that sound out there?" (pointing to the hallway) While taking his review of systems he said "I really don't feel up to doing this" and he asked me to stop asking questions. He denied any dyspnea, chest pain, or LE pain. When asked where he lives locally he said "[place]." He also stated he had been at [facility] "for 2 weeks." By report he has been eating/drinking poorly. He was unable to tell me if he was participating in therapy at [facility]. He then started talking about changing his health insurance. Prior to my assessment Mr Quijano underwent CTA chest which showed b/l PEs as well as lytic lesions in his shoulders b/l. Heparin was initiated in the ER. Allergies Allergy/AdvReac Type Severity Reaction Status Date / Time bee venom protein (honey bee) Allergy Mild Anaphylaxis Verified 07/16/24 22:50 Corticosteroids Allergy Mild ANAPHYLAXIS Verified 05/26/24 13:50 (Glucocorticoids) soy Allergy Mild Anaphylaxis Verified 07/16/24 22:50 wheat Allergy Mild ANAPHYLAXIS Verified 05/26/24 13:50 olive oil Allergy Unknown Unknown Verified 07/16/24 22:50 NSAIDS (Non-Steroidal AdvReac Intermediate BLEEDING Verified 07/16/24 22:50 Anti-Inflamma Home Medications Medication Instructions Recorded Confirmed Type ascorbate calcium (vitamin C) 500 1 gm PO DAILY 03/01/19 07/31/24 History mg tablet cholecalciferol (vitamin D3) 50 6,000 units PO DAILY 03/01/19 07/31/24 History mcg (2,000 unit) capsule ferrous sulfate 325 mg (65 mg 650 mg PO DAILY 03/01/19 07/31/24 History iron) tablet flaxseed oil 15 - 45 ml miscellaneous DAILY 03/01/19 07/31/24 History multivitamin (Daily Multi-Vitamin 1 tab PO DAILY 03/01/19 07/31/24 History tablet) vitamin E (dl, acetate) 180 mg 400 units PO DAILY 03/01/19 07/31/24 History (400 unit) capsule epinephrine 0.3 mg/0.3 mL 0.3 mg (0.3 mL) IM UD PRN 11/06/22 07/31/24 Rx injection, auto-injector (EpiPen) anaphylaxis #2 ea chlorophyllin-alfalfa 20 mg-100 mg 1 tab PO BID 03/12/23 07/31/24 History tablet (Chlorophyll (with alfalfa)) lidocaine-prilocaine 2.5 %-2.5 % 1 applic topical .COMPLEX PRN for 07/16/24 07/31/24 Rx topical cream injection site, blood sugar fingersticks #30 grams vitamin B complex 1 tab PO DAILY 07/16/24 07/31/24 History sulfasalazine 500 mg tablet 0.5 g PO BID #60 tabs 07/17/24 07/31/24 Rx midodrine 2.5 mg tablet 2.5 mg PO TID@0800,1200,1700 #90 07/28/24 07/31/24 Rx tabs risperidone 0.5 mg disintegrating 0.5 mg PO BID #20 tabs 07/28/24 07/31/24 Rx tablet Past Med/Surg History Problem List (Updated 08/01/24 @ 04:51 by Jeff Kelley MD) Encephalopathy Lytic bone lesions on xray Pleural effusion (Acute) Acute hypotension (Acute) Sinus tachycardia (Acute) Pulmonary embolism (Acute) Near syncope Elevated lactic acid level (Acute) Acute hyponatremia (Acute) Syncope and collapse (Acute) Rash, skin Health care maintenance Hyperglycemia Anemia (Acute) Anxiety (Acute) Colon cancer screening (Acute) Decreased hearing (Acute) History of duodenal ulcer (Acute) Rheumatoid arthritis (Acute) Medical History (Updated 08/01/24 @ 04:51 by Jeff Kelley MD) Delirium SVT (supraventricular tachycardia) Sensorineural hearing loss (SNHL) of both ears Deformity of left ankle joint History of upper gastrointestinal hemorrhage Vitamin D deficiency disease History of duodenal ulcer Anxiety Concussion Anemia Rheumatoid arthritis Surgical History S/P tooth extraction S/P appendectomy Family History Mother Diabetes Hypertension Stroke Father Rheumatic arteritis Neoplasm of esophagus Sister Allergy Social History Smoking Status: Former smoker Second Hand Exposure: No; Do You Dip or Chew Tobacco: No; Tobacco Cessation Education Requested by Patient: No Hx Alcohol Use: No Hx Substance Use: No Preferred Language: Ethiopian Communication Ability: Effective [employer] And Planning Required: No Beliefs That Will Affect Care: None marital status: Single Current Living Situation: Personal Care Facility Current Living Situation Comment: Currently at [facility] current occupational status: retired Feels Safe at Home: Yes Safety Concerns: Feels Safe At This Time Seatbelt Use: always Assistive Devices: Glasses and Walker Review of Systems Review of Systems: Unobtainable due to cognitive status Physical Exam Physical Exam: gen - thin, disheveled, although oriented x 3 he was confused & even paranoid at times mouth - MM very dry, poor dentition eyes - PERRL neck - no JVD heart - tachy, s1 s2, no murmur lungs - CTA b/l abd - soft NT ND BS+; no HSM; umbilical hernia - reducible ext - b/l foot/ankle deformities; orthoses in place b/l feet/ankles; right leg is larger than left leg; no edema vascular - b/l foot pulses 2+ musculo - severe RA changes of b/l hands, wrists, ankles; b/l shoulder effusions psych - a/o x 3 but confused & very poor historian skin - mild pallor, no rash neuro - moves all 4 limbs, DTRS 1+ b/l upper & lower exts Results & Data Results & Data Vital Signs (Past 12 Hours) Vital Signs Temp Pulse Pulse Resp BP BP Pulse Ox 07/31/24 19:24 102 H 16 109/70 93 07/31/24 16:15 90 91/59 L 92 07/31/24 16:00 90 22 110/80 94 07/31/24 16:00 90 07/31/24 15:30 94 H 17 82/59 L 94 07/31/24 15:15 95 H 16 84/62 L 90 07/31/24 14:40 07/31/24 14:40 36.9 C 105 H 18 86/61 L 93 O2 Del Method 07/31/24 19:24 Room Air 07/31/24 16:15 07/31/24 16:00 07/31/24 16:00 07/31/24 15:30 07/31/24 15:15 07/31/24 14:40 Room Air 07/31/24 14:40 Room Air Laboratory Results Laboratory Results - last 24 hr 07/31/24 07/31/24 15:06 15:10 WBC 10.91 H RBC 3.62 L Hgb 10.5 L Hct 31.5 L MCV 87.0 MCH 29.0 MCHC 33.3 RDW Std Deviation 43.1 RDW Coeff of Carolyn 13.6 Plt Count 277 MPV 8.5 L Immature Gran % (Auto) 0.6 Neut % (Auto) 75.9 Lymph % (Auto) 13.2 Brown % (Auto) 7.7 Eos % (Auto) 2.1 Baso % (Auto) 0.5 Neut # (Auto) 8.28 H Lymph # (Auto) 1.44 Brown # (Auto) 0.84 H Eos # (Auto) 0.23 Baso # (Auto) 0.05 Immature Gran # (Auto) 0.07 PT 10.7 INR 1.0 APTT 27 PTT Ratio 1.0 D-Dimer 64112 H* Sodium 133 L Potassium 4.0 Chloride 101 Carbon Dioxide 24 Anion Gap 8 BUN 12 Creatinine 0.69 Est Cr Clr Drug Dosing 112.6 eGFR 99.56 BUN/Creatinine Ratio 17.4 Glucose 115 H Calcium 8.7 Magnesium 1.8 Total Bilirubin 0.3 AST 19 ALT 13 Alkaline Phosphatase 69 Troponin I High Sens 14.1 Total Protein 5.8 L Albumin 2.8 L Globulin 3.0 Albumin/Globulin Ratio 0.9 TSH 2.723 SARS-CoV-2 (PCR) NEGATIVE Influenza Type A (PCR) Negative Influenza Type B (PCR) Negative RSV (RT-PCR) Negative Diagnostic Findings Chest X-Ray 07/31/24 14:51 XR chest 1V portable HISTORY: 69 years-old Male Dysrhythmia acute chest pain COMPARISON: 07/21/2024 TECHNIQUE: AP view the chest FINDINGS: Cardiac silhouette is normal in size. Mild subsegmental bibasilar densities with blunting of the costophrenic angles. No pneumothorax or overt pulmonary edema. Degenerative changes of the shoulders and spine with sigmoidal scoliosis. IMPRESSION: Mild bibasilar opacities favor atelectasis. ACT 112: Negative or not required by law. The above report was generated using voice recognition software. It may contain grammatical, syntax or spelling errors. Electronically signed by: Bjorn Mccoy M.D. 07/31/2024 3:17 PM Chest CTA 07/31/24 16:13 EXAM: CT Angiography Chest With Intravenous Contrast INDICATION: Tachycardia. Weight loss. TECHNIQUE: Axial computed tomographic angiography images of the chest with intravenous contrast. Sagittal and coronal reformatted images were created and reviewed. This CT exam was performed using one or more of the following dose reduction techniques: automated exposure control, adjustment of the mA and/or kV according to patient size, and/or use of iterative reconstruction technique. MIP reconstructed images were created and reviewed. CONTRAST: 119ml of Optiray 320 was administered intravenously. COMPARISON: 12/25/2016 FINDINGS: Pulmonary arteries: There are pulmonary emboli in the distal main pulmonary arteries with segmental propagation right greater than left. No saddle component. Aorta: Normal contour. No aneurysm or dissection. Lungs and pleural spaces: There are very small layering bilateral pleural effusions. Scattered groundglass foci noted in the right upper lobe. There is mild dependent atelectasis in both lower lobes. There is a calcified granuloma in the right lower lung. Heart: Mild cardiomegaly mostly involving the left side. No pericardial effusion or right heart strain. Bones/joints: New well-defined lytic lesions noted in the visualized portion of each humeral head with joint effusions left greater than right. Degenerative changes noted in the scoliotic spine. No acute osseous abnormality noted. Soft tissues: No abnormality noted. Lymph nodes: There are shotty bilateral axillary, aorta pulmonic, precarinal and bilateral hilar lymph nodes likely reactive. Stomach and bowel: Collapsed stomach suboptimally assessed. Large amounts of stool noted in the transverse colon. IMPRESSION: 1. Bilateral moderate pulmonary embolic burden without evidence of right heart strain. 2. Scattered groundglass opacities in the right upper lobe may reflect infarcts. 3. Small bilateral pleural effusions and basilar atelectasis present. ACT 112: Negative or not required by law. Electronically signed by Elizabeth Whyte 07-31-2024 5:52 PM EKG - sinus tach, no ST changes Code Status & VTE Plan Code Status he cycled back/forth from full code to DNR, and then said "it was complicated" and he wished to talk about it tomorrow; thus, full code for now PG Care Time/CCT Total # of Minutes Spent Total Time Spent with Patient: Total time spent is greater than 50% in coordination of care (as documented) at patient's floor/unit and/or counseling patient: Coding Level of Care Code 00260 INT INP/OBS CARE 3/75MIN Diagnoses Pulmonary embolism I26.99 Acute cor pulmonale presence: unspecified Chronicity: acute Pulmonary embolism type: unspecified Lytic bone lesions on xray M89.8X9 Sinus tachycardia R00.0 Acute hypotension I95.9 Acute hyponatremia E87.1 Rheumatoid arthritis M06.9 History of duodenal ulcer Z87.19 Encephalopathy G93.40 (1) Pulmonary embolism Acute cor pulmonale presence: unspecified Chronicity: acute Pulmonary embolism type: unspecified Qualified Code(s): I26.99 - Other pulmonary embolism without acute cor pulmonale
--- NOTE | 2024-07-31 21:50 | Communication Note ---
Date of Service: July 31, 2024 Returned call from patient's primary contact/estranged sister, Gillian Quijano, updated her on patient's clinical status. For any future calls, please direct to her cell phone #[phone]
--- NOTE | 2024-07-31 22:17 | Electrocardiogram Report ---
Test Reason : Blood Pressure : */* mmHG Vent. Rate : 107 BPM Atrial Rate : 107 BPM P-R Int : 172 ms QRS Dur : 84 ms QT Int : 318 ms P-R-T Axes : 62 63 51 degrees QTcB Int : 424 ms Sinus tachycardia Otherwise normal ECG When compared with ECG of 22-Jul-2024 17:50, Fusion complexes are no longer Present Confirmed by Josiah Patiño ([id number]) on 07/31/2024 10:17:18 PM Referred By: Confirmed By: Josiah Patiño
[2024-07-31] MEDS ORDERED: ONDANSETRON INJ 2 MG/ML 2 ML VIAL IV PRN (23:18)
[2024-07-31] MEDS: SODIUM CHLORIDE 0.9% 1,000 ML IV SCH (23:19)
[2024-07-31] MEDS ORDERED: Nursing to Pharmacy Communication SCH (23:45)
[2024-08-01] MEDS ORDERED: EPINEPHrine INJ 1 MG/ML AMP IM PRN (00:02)
[2024-08-01] MEDS: FERROUS SULFATE 325 MG TAB PO SCH (00:24)
[2024-08-01] MEDS: sulfaSALAzine 500 MG TABLET PO SCH (00:24)
[2024-08-01 06:41] LABS: Hematocrit (blood only) 29.8 % (42.0-52.0); Hemoglobin 9.7 g/dl (14.0-18.0); Mean Corpuscular Hemoglobin 28.6 pg (25.0-34.0); Mean Corpuscular Hgb Conc 32.6 g/dL (32.0-36.0); Mean Corpuscular Volume 87.9 fL (80.0-100.0); Mean Platelet Volume 8.4 fL (9.4-12.4); Platelet Count 283 K/uL (130-400); RDW Coefficient of Variation 13.7 % (11.5-14.5); RDW Standard Deviation 43.7 fL (36.4-46.3); Red Blood Count 3.39 M/uL (4.70-6.10)
[2024-08-01 07:04] LABS: BUN Creatinine Ratio 15.7 (10-20); Calcium 8.2 mg/dl (8.6-10.3); Creatinine Clr Calc Pharmacy 147.9 ml/min; Potassium 3.8 mmol/L (3.5-5.1)
[2024-08-01 07:12] LABS: ANTI-Xa, UFH(UnfractionatedHep 0.28 IU/ml (0.3-0.7)
[2024-08-01] MEDS: ACETAMINOPHEN 325 MG TAB PO PRN (07:29)
[2024-08-01] MEDS: MULTIVITAMIN TAB PO SCH (07:30)
[2024-08-01] MEDS: TOCOPHERYL, DL-ALPHA 400 UNITS 180 MG CAP PO SCH (07:31)
[2024-08-01] MEDS: CHOLECALCIFEROL 25 MCG (1000 UNITS) TAB PO SCH (07:32)
[2024-08-01] MEDS: MIDODRINE HCL 2.5 MG TAB PO SCH (07:32)
[2024-08-01] MEDS: ASCORBIC ACID 500 MG TAB PO SCH (07:33)
--- NOTE | 2024-08-01 08:38 | XCELERA ---
[id number] \\[id number]
--- NOTE | 2024-08-01 09:23 | Ultrasound Report ---
EXAM: US Duplex Bilateral Lower Extremities Veins INDICATION: Pulmonary embolus. TECHNIQUE: Real-time duplex ultrasound scan of the bilateral lower extremity veins integrating B-mode two-dimensional vascular structure, Doppler spectral analysis, color flow Doppler imaging and compression. COMPARISON: Left venous Doppler 03/20/2019 FINDINGS: Right deep veins: No DVT in the right common femoral, femoral or popliteal veins. The veins demonstrate normal color flow, are normally compressible, with normal phasic flow and/or augmentation response. Peroneal veins in the calf duplicated with 1 occluded. Right superficial veins: No abnormality noted. No thrombus in the visualized right great saphenous vein. Left deep veins: No DVT in the left common femoral, femoral or popliteal veins. The veins demonstrate normal color flow, are normally compressible, with normal phasic flow and/or augmentation response. Left superficial veins: No abnormality noted. No thrombus in the visualized left great saphenous vein. Soft tissues: There is a complex left Mike's cyst measuring 3.9 x 1.5 x 2.0 cm. IMPRESSION: 1. Deep venous thrombosis in the right calf of one of the duplicated peroneal veins. 2. No deep venous thrombosis from either groin to the knees. 3. There is a complex left Mike's cyst measuring 3.9 x 1.5 x 2.0 cm. ACT 112: Negative or not required by law. Electronically signed by Elizabeth Whyte 08-01-2024 09:23 AM
[2024-08-01] MEDS: PANTOprazole 40 MG TAB PO SCH (10:19)
[2024-08-01] MEDS: GADOBUTROL 65ML VIAL IV ONE (11:37)
--- NOTE | 2024-08-01 12:48 | Magnetic Resonance Report ---
EXAM: MR brain wo/w con CLINICAL HISTORY: Pt states a recent fall but did not hit the head, r/o mets per order. Pt given 8ml gadavist @ 1135, UEM=998.07. TECHNIQUE: MRI of the brain was performed with and without intravenous contrast administration. Sequences obtained include pre-contrast and post-contrast T1-weighted, T2-weighted, FLAIR (Fluid-Attenuated Inversion Recovery), DWI (Diffusion-Weighted Imaging), and ADC (Apparent Diffusion Coefficient) sequences. COMPARISON: No previous studies are available for comparison. FINDINGS: Brain Parenchyma: The Left middle frontal gyrus displays cortical signal abnormality iso-intense T1, bright T2, and FLAIR WIs signals noted. mild diffusion restriction is seen in DWIs .No related post-contrast enhancement is appreicated. No mass effect nor vasogenic edema around. Moderate age-related cerebral involutional changes were noted. manifested by wide extra-axial CSF spaces with ventricular system dilatation. Left inferior cerebellar wedge-shaped area of encephalomalacia related to a sequel of prior ischemia appreciated. Bess-white matter differentiation is preserved. No abnormal signal-intensity lesions were identified. Post-Contrast Findings: No abnormal enhancement of the brain parenchyma or meninges. Ventricles and Sulci: The ventricular system is within normal limits without evidence of hydrocephalus. Sulci and cisternal spaces are age-appropriate. Brainstem and Cerebellum: Normal appearance of the brainstem and cerebellum without focal lesions or abnormal enhancement. Vessels: Intracranial vessels appear normal without evidence of vascular malformations or aneurysms. Skull and Calvarium: No evidence of skull vault lesions or abnormal marrow signals within the calvarium. IMPRESSION: MRI of the brain with and without contrast: 1. Abnormal cortical signals involving the left middle frontal gyrus with no mass effect nor edema may refer to early ischemic /post-concussion recent sequel . Follow-up is advised. 2. Moderate age-related cerebral involutional changes were noted. 3. Left inferior cerebellar encephalomalacia related to the chronic ischemic sequel is stable. 4. No evidence of abnormal contrast enhancement. Electronically signed by Lyn Stevens 08-01-2024 12:47 PM
[2024-08-01 15:47] LABS: ANTI-Xa, UFH(UnfractionatedHep 0.29 IU/ml (0.3-0.7)
[2024-08-01] MEDS: OPTIRAY 320 125ml IV ONE (15:58)
--- NOTE | 2024-08-01 16:23 | CT Scan Report ---
EXAM: CT Angiography Head and Neck With Intravenous Contrast INDICATION: Left frontal stroke. TECHNIQUE: [place] [facility] [place]/head and neck CT angiography protocol performed with intravenous contrast. Sagittal and coronal reformatted images were created and reviewed. This CT exam was performed using one or more of the following dose reduction techniques: automated exposure control, adjustment of the mA and/or kV according to patient size, and/or use of iterative reconstruction technique. MIP reconstructed images were created and reviewed. CONTRAST: 116ml of Optiray 320 was administered intravenously. COMPARISON: MRI of the brain early there today. FINDINGS: HEAD: Right anterior cerebral artery: No abnormality noted. No occlusion or significant stenosis. Anterior communicating artery is present. No aneurysm. Right middle cerebral artery: No abnormality noted. No occlusion or significant stenosis. No aneurysm. Right posterior cerebral artery: No abnormality noted. No occlusion or significant stenosis. No aneurysm. Right intracranial internal carotid artery: No abnormality noted. No significant stenosis. No dissection or occlusion. Right intracranial vertebral artery: No abnormality noted. No significant stenosis. No dissection or occlusion. Left anterior cerebral artery: No abnormality noted. No occlusion or significant stenosis. No aneurysm. Left middle cerebral artery: No abnormality noted. No occlusion or significant stenosis. No aneurysm. Left posterior cerebral artery: No abnormality noted. No occlusion or significant stenosis. No aneurysm. Left intracranial internal carotid artery: No abnormality noted. No significant stenosis. No dissection or occlusion. Left intracranial vertebral artery: No abnormality noted. No significant stenosis. No dissection or occlusion. Basilar artery: No abnormality noted. No occlusion or significant stenosis. No aneurysm. Other vasculature: No vascular malformation. Brain and extra-axial spaces: Atrophic changes noted in the brain. Left cerebellar encephalomalacia. No definite hemorrhage. There is mild gyral edema in the areas of increased restricted diffusion on MRI in the left frontal lobe. No evident hemorrhage. Small extra-axial hemorrhages may not be detected. Sinuses: Small amount of mucosal thickening and fluid in posterior left ethmoid air cell. Trace chronic left frontal sinus thickening noted. NECK: Right common carotid artery: No abnormality noted. No significant stenosis. No dissection or occlusion. Right extracranial internal carotid artery: No abnormality noted. No significant stenosis. No dissection or occlusion. Right external carotid artery: No abnormality noted. No occlusion. Right extracranial vertebral artery: No abnormality noted. No significant stenosis. No dissection or occlusion. Left common carotid artery: No abnormality noted. No significant stenosis. No dissection or occlusion. Left extracranial internal carotid artery: No abnormality noted. No significant stenosis. No dissection or occlusion. Left external carotid artery: No abnormality noted. No occlusion. Left extracranial vertebral artery: No abnormality noted. No significant stenosis. No dissection or occlusion. Thyroid: 2 or 3 small right thyroid nodules none measuring over 1 cm. No further assessment required. Lung apices: No significant abnormality noted. HEAD and NECK: Bones/joints: Degenerative changes noted throughout the spine. No acute osseous abnormality seen. Soft tissues: No abnormality noted. Other findings: Partially imaged patchy infiltrate noted in the lateral aspect of the right apex. CAROTID STENOSIS REFERENCE USING NASCET CRITERIA: % ICA stenosis = (1 - narrowest ICA diameter/diameter of distal cervical ICA) x 100. Mild - <50% stenosis. Moderate - 50-69% stenosis. Severe - 70-94% stenosis. Near occlusion - 95-99% stenosis. Occluded - 100% stenosis. IMPRESSION: 1. No large vessel occlusion, aneurysm or dissection of the arteries in the brain and neck. 2. There is probable mild gyral edema in the left frontal lobe in the areas of restricted diffusion seen on MRI. No hemorrhage. 3. No cervical carotid atherosclerotic changes or stenosis. 4. Partially imaged peripheral right upper lobe groundglass infiltrate. Pneumonia not excluded. ACT 112: Negative or not required by law. Electronically signed by Elizabeth Whyte 08-01-2024 4:21 PM
--- NOTE | 2024-08-01 18:53 | Hospitalist Progress Note ---
Date of Service August 01, 2024 Assessment & Plan (1) Pulmonary embolism: Plan: 69yo male with long-standing rheumatoid arthritis and recent admission for SVT/delirium/deconditioning/ambulatory dysfunction presents with tachycardia noted at [facility]. Upon presentation had significantly elevated d-dimer level which prompted CTA chest to r/o PE. CTA chest with b/l PEs - moderate clot burden. Tachycardia likely 2nd to PEs. Risk factors - immobility, recent prolonged hospital stay, rheumatoid arthritis. Can't rule out malignancy (see #2 below). Dopplers b/l LEs with RLE DVT as below. Cont heparin infusion. If patient does not need any procedures for remainder of his course then ultimately transition to DOAC (eliquis, etc). Remains stable in room air. (2) Right leg DVT: Plan: peroneal vein DVT - RLE cont heparin infusion ultimately will need DOAC length of Rx - potentially lifelong (3) Abnormal brain MRI: Plan: due to pt's presenting encephalopathy (and recent confusion during prior admission) elected to obtain MRI brain this revealed left frontal lobe abnormality - stroke vs inflammatory process vs other; likely not metastatic disease as there is no post-contrast enhancement I do believe this finding explains his recent confusion CTA head/neck negative Limited echo without thrombus; will ask echo techs to perform a bubble study for PFO case briefly d/w Dr Holt from [facility] - I have asked him to consult for this abnormality need for LP to rule out inflammatory process? (4) Encephalopathy: Plan: patient had acute encephalopathy during his prior hospital stay requiring use of antipsychotic therapy (risperdal) he had CT head at that time that was negative for acute findings he was seen by psychiatry for the confusion TSH wnl B12 level wnl B1 level sent/pending pt's mental status is MUCH improved today abnormal brain MRI - see #3 above leave risperdal as needed rather than scheduled (5) Lytic bone lesions on xray: Plan: CTA chest incidentally showed the following abnormality -- "New well-defined lytic lesions noted in the visualized portion of each humeral head with joint effusions left greater than right." This is worrisome for malignancy - e.g. multiple myeloma, etc. Cannot rule out mets from distant site. Check SPEP, UPEP. Consider CT abd/pelvis. He has had at least 10 kg of weight loss over the previous year and appears to be failing to thrive of late. See discussion above re: abnormal brain MRI. (6) Sinus tachycardia: Plan: 2nd to #1 improved/resolved with supportive care, IV fluids can't rule out SVT at the [facility] when they found his HR to be in the 170s -- no EKG from that incident no SVT seen thus far on tele cont telemetry monitoring (7) Acute hypotension: Plan: 2nd to PEs 2nd to dehydration (markedly volume depleted on exam at admission) resolved can stop IV fluids (8) Acute hyponatremia: Plan: 133 at presentation 2nd volume depletion based on his examination resolved s/p IV fluids can stop fluids (9) Rheumatoid arthritis: Plan: long-standing, previously followed by Dr Rich Tilley currently only on sulfasalazine BID he has advanced joint changes on exam from his RA suspect uncontrolled RA for lengthy period of time reading the chart it seems he has been resistant to more aggressive therapy for his RA in the past (10) History of duodenal ulcer: Plan: place on PPI therapy in the setting of needing anticoagulation Plan updated pt's sister Wanda Quijano at # listed in chart - extensive update given 08/01/24 she provided an additional # -- [phone] -- if we can't reach her at # listed in chart care d/w Dr Holt from neurology needs PT/OT evals Admission and Anticipated Discharge Date Admission Date: July 31, 2024 Subjective patient feeling better today no confusion no paranoia able to ask good insightful questions denies weakness right arm or leg does have mild pain in both shoulders ate better today tele - NSR overnight denies any dyspnea, pleuritic chest pain or orthopnea we discussed the MRI brain findings - ?stroke vs other? Review of Systems Review of Systems: CV - no palpitations pulm - no cough GI - no abd pain or N/V Physical Exam Physical Exam: gen - thin, looks much better today, a/o x 3 mouth - MM more moist today neck - no JVD heart - RRR, s1 s2, no murmur lungs - CTA b/l abd - soft NT ND BS+; no HSM; umbilical hernia - reducible ext - b/l foot/ankle deformities; orthoses in place b/l feet/ankles; right leg is larger than left leg; no edema vascular - b/l foot pulses 2+ musculo - severe RA changes of b/l hands, wrists, ankles psych - a/o x 3 neuro - strength b/l arms 5/5 strength; b/l hip flexion 5/5; no facial droop; speech low-pitched but fluent/clear Results & Data Results & Data Vital Signs (Past 12 Hours) Vital Signs Temp Pulse Pulse Resp BP Pulse Ox O2 Del Method 08/01/24 15:19 37.1 C 80 20 114/72 96 Room Air 08/01/24 14:14 103 H 08/01/24 11:13 37.0 C 90 20 109/66 92 Room Air 08/01/24 09:34 102 H 08/01/24 08:55 Room Air 08/01/24 07:37 37.2 C 96 H 20 109/69 93 Room Air Laboratory Results Laboratory Results - last 24 hr 08/01/24 08/01/24 08/01/24 06:07 06:11 14:59 WBC 7.60 RBC 3.39 L Hgb 9.7 L Hct 29.8 L MCV 87.9 MCH 28.6 MCHC 32.6 RDW Std Deviation 43.7 RDW Coeff of Carolyn 13.7 Plt Count 283 MPV 8.4 L Heparin Anti-Xa, Unfract 0.28 L 0.29 L Sodium 136 Potassium 3.8 Chloride 106 Carbon Dioxide 22 Anion Gap 8 BUN 8 Creatinine 0.51 L Est Cr Clr Drug Dosing 147.9 eGFR 109.07 BUN/Creatinine Ratio 15.7 Glucose 98 Calcium 8.2 L Total Protein (PEP) Pending Albumin (PEP) Pending Qosmz-2-Arcsyeust Pending Xkyyq-3-Mimlihfsk Pending Fzal-0-Nzyjaqfu Pending Qktt-2-Vfgvrtdg Pending Gamma Globulins Pending Monoclonal Peak 3 Pending Ser Monoclonl Protein Pending Ser Monoclonal Prot 2 Pending PEP Interpretation Pending Whole Bld Vitamin B1 Pending Vitamin B12 882 08/01/24 22:22 WBC RBC Hgb Hct MCV MCH MCHC RDW Std Deviation RDW Coeff of Carolyn Plt Count MPV Heparin Anti-Xa, Unfract 0.43 Sodium Potassium Chloride Carbon Dioxide Anion Gap BUN Creatinine Est Cr Clr Drug Dosing eGFR BUN/Creatinine Ratio Glucose Calcium Total Protein (PEP) Albumin (PEP) Ylvhk-9-Hugcrccmd Smpcp-5-Ktkptqqbh Djha-9-Rbmmyzlz Dznl-5-Iootjclo Gamma Globulins Monoclonal Peak 3 Ser Monoclonl Protein Ser Monoclonal Prot 2 PEP Interpretation Whole Bld Vitamin B1 Vitamin B12 Diagnostic Findings Venous Doppler Study 08/01/24 00:00 EXAM: US Duplex Bilateral Lower Extremities Veins INDICATION: Pulmonary embolus. TECHNIQUE: Real-time duplex ultrasound scan of the bilateral lower extremity veins integrating B-mode two-dimensional vascular structure, Doppler spectral analysis, color flow Doppler imaging and compression. COMPARISON: Left venous Doppler 03/20/2019 FINDINGS: Right deep veins: No DVT in the right common femoral, femoral or popliteal veins. The veins demonstrate normal color flow, are normally compressible, with normal phasic flow and/or augmentation response. Peroneal veins in the calf duplicated with 1 occluded. Right superficial veins: No abnormality noted. No thrombus in the visualized right great saphenous vein. Left deep veins: No DVT in the left common femoral, femoral or popliteal veins. The veins demonstrate normal color flow, are normally compressible, with normal phasic flow and/or augmentation response. Left superficial veins: No abnormality noted. No thrombus in the visualized left great saphenous vein. Soft tissues: There is a complex left Mike's cyst measuring 3.9 x 1.5 x 2.0 cm. IMPRESSION: 1. Deep venous thrombosis in the right calf of one of the duplicated peroneal veins. 2. No deep venous thrombosis from either groin to the knees. 3. There is a complex left Mike's cyst measuring 3.9 x 1.5 x 2.0 cm. ACT 112: Negative or not required by law. Electronically signed by Elizabeth Whyte 08-01-2024 09:23 AM Brain MRI 08/01/24 09:19 EXAM: MR brain wo/w con CLINICAL HISTORY: Pt states a recent fall but did not hit the head, r/o mets per order. Pt given 8ml gadavist @ 1135, HXG=546.07. TECHNIQUE: MRI of the brain was performed with and without intravenous contrast administration. Sequences obtained include pre-contrast and post-contrast T1-weighted, T2-weighted, FLAIR (Fluid-Attenuated Inversion Recovery), DWI (Diffusion-Weighted Imaging), and ADC (Apparent Diffusion Coefficient) sequences. COMPARISON: No previous studies are available for comparison. FINDINGS: Brain Parenchyma: The Left middle frontal gyrus displays cortical signal abnormality iso-intense T1, bright T2, and FLAIR WIs signals noted. mild diffusion restriction is seen in DWIs .No related post-contrast enhancement is appreicated. No mass effect nor vasogenic edema around. Moderate age-related cerebral involutional changes were noted. manifested by wide extra-axial CSF spaces with ventricular system dilatation. Left inferior cerebellar wedge-shaped area of encephalomalacia related to a sequel of prior ischemia appreciated. Bess-white matter differentiation is preserved. No abnormal signal-intensity lesions were identified. Post-Contrast Findings: No abnormal enhancement of the brain parenchyma or meninges. Ventricles and Sulci: The ventricular system is within normal limits without evidence of hydrocephalus. Sulci and cisternal spaces are age-appropriate. Brainstem and Cerebellum: Normal appearance of the brainstem and cerebellum without focal lesions or abnormal enhancement. Vessels: Intracranial vessels appear normal without evidence of vascular malformations or aneurysms. Skull and Calvarium: No evidence of skull vault lesions or abnormal marrow signals within the calvarium. IMPRESSION: MRI of the brain with and without contrast: 1. Abnormal cortical signals involving the left middle frontal gyrus with no mass effect nor edema may refer to early ischemic /post-concussion recent sequel . Follow-up is advised. 2. Moderate age-related cerebral involutional changes were noted. 3. Left inferior cerebellar encephalomalacia related to the chronic ischemic sequel is stable. 4. No evidence of abnormal contrast enhancement. Electronically signed by Lyn Stevens 08-01-2024 12:47 PM Head CTA 08/01/24 14:31 EXAM: CT Angiography Head and Neck With Intravenous Contrast INDICATION: Left frontal stroke. TECHNIQUE: [place] [facility] [place]/head and neck CT angiography protocol performed with intravenous contrast. Sagittal and coronal reformatted images were created and reviewed. This CT exam was performed using one or more of the following dose reduction techniques: automated exposure control, adjustment of the mA and/or kV according to patient size, and/or use of iterative reconstruction technique. MIP reconstructed images were created and reviewed. CONTRAST: 116ml of Optiray 320 was administered intravenously. COMPARISON: MRI of the brain early there today. FINDINGS: HEAD: Right anterior cerebral artery: No abnormality noted. No occlusion or significant stenosis. Anterior communicating artery is present. No aneurysm. Right middle cerebral artery: No abnormality noted. No occlusion or significant stenosis. No aneurysm. Right posterior cerebral artery: No abnormality noted. No occlusion or significant stenosis. No aneurysm. Right intracranial internal carotid artery: No abnormality noted. No significant stenosis. No dissection or occlusion. Right intracranial vertebral artery: No abnormality noted. No significant stenosis. No dissection or occlusion. Left anterior cerebral artery: No abnormality noted. No occlusion or significant stenosis. No aneurysm. Left middle cerebral artery: No abnormality noted. No occlusion or significant stenosis. No aneurysm. Left posterior cerebral artery: No abnormality noted. No occlusion or significant stenosis. No aneurysm. Left intracranial internal carotid artery: No abnormality noted. No significant stenosis. No dissection or occlusion. Left intracranial vertebral artery: No abnormality noted. No significant stenosis. No dissection or occlusion. Basilar artery: No abnormality noted. No occlusion or significant stenosis. No aneurysm. Other vasculature: No vascular malformation. Brain and extra-axial spaces: Atrophic changes noted in the brain. Left cerebellar encephalomalacia. No definite hemorrhage. There is mild gyral edema in the areas of increased restricted diffusion on MRI in the left frontal lobe. No evident hemorrhage. Small extra-axial hemorrhages may not be detected. Sinuses: Small amount of mucosal thickening and fluid in posterior left ethmoid air cell. Trace chronic left frontal sinus thickening noted. NECK: Right common carotid artery: No abnormality noted. No significant stenosis. No dissection or occlusion. Right extracranial internal carotid artery: No abnormality noted. No significant stenosis. No dissection or occlusion. Right external carotid artery: No abnormality noted. No occlusion. Right extracranial vertebral artery: No abnormality noted. No significant stenosis. No dissection or occlusion. Left common carotid artery: No abnormality noted. No significant stenosis. No dissection or occlusion. Left extracranial internal carotid artery: No abnormality noted. No significant stenosis. No dissection or occlusion. Left external carotid artery: No abnormality noted. No occlusion. Left extracranial vertebral artery: No abnormality noted. No significant stenosis. No dissection or occlusion. Thyroid: 2 or 3 small right thyroid nodules none measuring over 1 cm. No further assessment required. Lung apices: No significant abnormality noted. HEAD and NECK: Bones/joints: Degenerative changes noted throughout the spine. No acute osseous abnormality seen. Soft tissues: No abnormality noted. Other findings: Partially imaged patchy infiltrate noted in the lateral aspect of the right apex. CAROTID STENOSIS REFERENCE USING NASCET CRITERIA: % ICA stenosis = (1 - narrowest ICA diameter/diameter of distal cervical ICA) x 100. Mild - <50% stenosis. Moderate - 50-69% stenosis. Severe - 70-94% stenosis. Near occlusion - 95-99% stenosis. Occluded - 100% stenosis. IMPRESSION: 1. No large vessel occlusion, aneurysm or dissection of the arteries in the brain and neck. 2. There is probable mild gyral edema in the left frontal lobe in the areas of restricted diffusion seen on MRI. No hemorrhage. 3. No cervical carotid atherosclerotic changes or stenosis. 4. Partially imaged peripheral right upper lobe groundglass infiltrate. Pneumonia not excluded. ACT 112: Negative or not required by law. Electronically signed by Elizabeth Whyte 08-01-2024 4:21 PM Neck CTA 08/01/24 14:31 EXAM: CT Angiography Head and Neck With Intravenous Contrast INDICATION: Left frontal stroke. TECHNIQUE: [place] [facility] [place]/head and neck CT angiography protocol performed with intravenous contrast. Sagittal and coronal reformatted images were created and reviewed. This CT exam was performed using one or more of the following dose reduction techniques: automated exposure control, adjustment of the mA and/or kV according to patient size, and/or use of iterative reconstruction technique. MIP reconstructed images were created and reviewed. CONTRAST: 116ml of Optiray 320 was administered intravenously. COMPARISON: MRI of the brain early there today. FINDINGS: HEAD: Right anterior cerebral artery: No abnormality noted. No occlusion or significant stenosis. Anterior communicating artery is present. No aneurysm. Right middle cerebral artery: No abnormality noted. No occlusion or significant stenosis. No aneurysm. Right posterior cerebral artery: No abnormality noted. No occlusion or significant stenosis. No aneurysm. Right intracranial internal carotid artery: No abnormality noted. No significant stenosis. No dissection or occlusion. Right intracranial vertebral artery: No abnormality noted. No significant stenosis. No dissection or occlusion. Left anterior cerebral artery: No abnormality noted. No occlusion or significant stenosis. No aneurysm. Left middle cerebral artery: No abnormality noted. No occlusion or significant stenosis. No aneurysm. Left posterior cerebral artery: No abnormality noted. No occlusion or significant stenosis. No aneurysm. Left intracranial internal carotid artery: No abnormality noted. No significant stenosis. No dissection or occlusion. Left intracranial vertebral artery: No abnormality noted. No significant stenosis. No dissection or occlusion. Basilar artery: No abnormality noted. No occlusion or significant stenosis. No aneurysm. Other vasculature: No vascular malformation. Brain and extra-axial spaces: Atrophic changes noted in the brain. Left cerebellar encephalomalacia. No definite hemorrhage. There is mild gyral edema in the areas of increased restricted diffusion on MRI in the left frontal lobe. No evident hemorrhage. Small extra-axial hemorrhages may not be detected. Sinuses: Small amount of mucosal thickening and fluid in posterior left ethmoid air cell. Trace chronic left frontal sinus thickening noted. NECK: Right common carotid artery: No abnormality noted. No significant stenosis. No dissection or occlusion. Right extracranial internal carotid artery: No abnormality noted. No significant stenosis. No dissection or occlusion. Right external carotid artery: No abnormality noted. No occlusion. Right extracranial vertebral artery: No abnormality noted. No significant stenosis. No dissection or occlusion. Left common carotid artery: No abnormality noted. No significant stenosis. No dissection or occlusion. Left extracranial internal carotid artery: No abnormality noted. No significant stenosis. No dissection or occlusion. Left external carotid artery: No abnormality noted. No occlusion. Left extracranial vertebral artery: No abnormality noted. No significant stenosis. No dissection or occlusion. Thyroid: 2 or 3 small right thyroid nodules none measuring over 1 cm. No further assessment required. Lung apices: No significant abnormality noted. HEAD and NECK: Bones/joints: Degenerative changes noted throughout the spine. No acute osseous abnormality seen. Soft tissues: No abnormality noted. Other findings: Partially imaged patchy infiltrate noted in the lateral aspect of the right apex. CAROTID STENOSIS REFERENCE USING NASCET CRITERIA: % ICA stenosis = (1 - narrowest ICA diameter/diameter of distal cervical ICA) x 100. Mild - <50% stenosis. Moderate - 50-69% stenosis. Severe - 70-94% stenosis. Near occlusion - 95-99% stenosis. Occluded - 100% stenosis. IMPRESSION: 1. No large vessel occlusion, aneurysm or dissection of the arteries in the brain and neck. 2. There is probable mild gyral edema in the left frontal lobe in the areas of restricted diffusion seen on MRI. No hemorrhage. 3. No cervical carotid atherosclerotic changes or stenosis. 4. Partially imaged peripheral right upper lobe groundglass infiltrate. Pneumonia not excluded. ACT 112: Negative or not required by law. Electronically signed by Elizabeth Whyte 08-01-2024 4:21 PM PG Care Time/CCT Total # of Minutes Spent Total Time Spent with Patient: Total time spent is greater than 50% in coordination of care (as documented) at patient's floor/unit and/or counseling patient: Coding Level of Care Code 82154 SUB INP/OBS CARE 3/50MIN Diagnoses Pulmonary embolism I26.99 Acute cor pulmonale presence: unspecified Chronicity: acute Pulmonary embolism type: unspecified Right leg DVT I82.401 Abnormal brain MRI R90.89 Encephalopathy G93.40 Lytic bone lesions on xray M89.8X9 Sinus tachycardia R00.0 Acute hypotension I95.9 Acute hyponatremia E87.1 Rheumatoid arthritis M06.9 History of duodenal ulcer Z87.19 (1) Pulmonary embolism Acute cor pulmonale presence: unspecified Chronicity: acute Pulmonary embolism type: unspecified Qualified Code(s): I26.99 - Other pulmonary embolism without acute cor pulmonale
[2024-08-01 23:26] LABS: ANTI-Xa, UFH(UnfractionatedHep 0.43 IU/ml (0.3-0.7)
[2024-08-02 06:58] LABS: C Reactive Protein 11.67 mg/dl (0-0.5); Calcium 8.4 mg/dl (8.6-10.3); Creatinine Clr Calc Pharmacy 132.4 ml/min; Potassium 3.7 mmol/L (3.5-5.1)
[2024-08-02 07:00] LABS: ANTI-Xa, UFH(UnfractionatedHep 0.57 IU/ml (0.3-0.7)
--- NOTE | 2024-08-02 10:33 | XCELERA ---
[id number] \\[email or web address]_PDF_[id number]
--- NOTE | 2024-08-02 11:33 | Neurology Consultation ---
Date of Consultation August 02, 2024 Assessment & Plan (1) Abnormal brain MRI: (2) Rheumatoid arthritis: (3) Pulmonary embolism: (4) Right leg DVT: Plan This patient has an abnormal MRI of the brain showing a small area of very peripheral (gyral) restricted diffusion in the left mid frontal area. There is no mass effect or edema and there is no enhancement. Therefore I do not believe this is metastasis or tumor. This could be an unusual peripheral stroke. Alternatively it could be a small focal area of cerebritis consistent with inflammation. 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 Patient does not have any focal neurologic findings on exam referable to the left brain stroke. However this location may not have any obvious clinical accompaniment anyway. There are no meningeal signs, encephalopathy, or dementia. Cerebritis typically gives mental status changes which this patient does not seem to have. The elevated CRP and ESR reflect active inflammation. Overall, clinically and radiographically, he seems to fit best with a small, unusual, peripheral stroke. This stroke could be secondary to hypotension/watershed type of infarct. Recommendations: 1. Normally, I would consider an antiplatelet medication such as aspirin, but the patient is on heparin so we will avoid adding antiplatelet medication for now 2. Consider lumbar puncture, but he really does not have any meningeal signs or encephalopathy. 3. Consider antiphospholipid antibodies, anti-neuronal antibodies, and an ALIREZA 12 profile. 4. He needs follow-up with rheumatology, once he is medically stable. Apparently he has an appointment with Dr. Massey, but I do not see an appointment on file. I think it is important that he sees Dr. Massey within a few weeks of discharge. 5. We may repeat the MRI of the brain, with and without contrast, in 6 weeks (or depending on clinical course) 6. Physical and Occupational Therapy, increasing activity as able. Overall, I spent a total of 75 minutes with this case including review of records, direct evaluation of the patient at bedside, CT and MRI film review, report generation, and discussion of the case with the patient and RN at bedside and Dr. Kelley including differential diagnosis and treatment options History of Present Illness Reason for Consultation: Patient is a 69-year-old, who I was asked to see at the request of Dr. Kelley, for neurologic evaluation regarding abnormal MRI of the brain. Requesting Physician: Dr. Kelley Attending Physician: Jeff Kelley MD History of Present Illness Patient has a longstanding history of active inflammatory rheumatoid arthritis followed by [facility] for many years but now is switching to Dr. Massey at [facility]. Currently he is taking sulfasalazine and does not sound like he has been on any Biologics for his rheumatoid arthritis. He has severe pain in his distal joints of the hands and feet with deformity. He has proximal joint pain as well. Currently, he does not have spine pain of significance but does have significant scoliosis which gives him some pain and balance issues. He denies history of headaches, vision issues, new weakness or numbness of the limbs, or cognitive problems. He was admitted July 31 with hypotension (86/61) and sinus tachycardia (105). He was discovered on CTA of the chest to have bilateral moderate pulmonary emboli. Laboratory studies were unremarkable except for a mildly elevated white count and a markedly elevated D-dimer. Sed rate was 55 and CRP was 11.6. Lyme antibody titers were negative. The patient was admitted earlier in July of this year for SVT and had some encephalopathy treated with Risperdal during that hospitalization. A CT scan of the head was unremarkable. During this admission, on August 01, MRI of the brain showed a small left middle frontal gyral area of restricted diffusion (peripherally on the gyrus) of uncertain significance. There was no edema or mass effect and he did not enhance with contrast material. No other abnormalities were although he has atrophy and some old small vessel ischemic disease. I reviewed these films. CT angiography of the head and neck were largely unremarkable. Echocardiogram was performed and results are pending. Venous Doppler study shows DVT in the right lower extremity Allergies Allergy/AdvReac Type Severity Reaction Status Date / Time bee venom protein (honey bee) Allergy Mild Anaphylaxis Verified 07/16/24 22:50 Corticosteroids Allergy Mild ANAPHYLAXIS Verified 05/26/24 13:50 (Glucocorticoids) soy Allergy Mild Anaphylaxis Verified 07/16/24 22:50 wheat Allergy Mild ANAPHYLAXIS Verified 05/26/24 13:50 olive oil Allergy Unknown Unknown Verified 07/16/24 22:50 NSAIDS (Non-Steroidal AdvReac Intermediate BLEEDING Verified 07/16/24 22:50 Anti-Inflamma Home Medications Medication Instructions Recorded Confirmed Type ascorbate calcium (vitamin C) 500 1 gm PO DAILY 03/01/19 07/31/24 History mg tablet cholecalciferol (vitamin D3) 50 6,000 units PO DAILY 03/01/19 07/31/24 History mcg (2,000 unit) capsule ferrous sulfate 325 mg (65 mg 650 mg PO DAILY 03/01/19 07/31/24 History iron) tablet flaxseed oil 15 - 45 ml miscellaneous DAILY 03/01/19 07/31/24 History multivitamin (Daily Multi-Vitamin 1 tab PO DAILY 03/01/19 07/31/24 History tablet) vitamin E (dl, acetate) 180 mg 400 units PO DAILY 03/01/19 07/31/24 History (400 unit) capsule epinephrine 0.3 mg/0.3 mL 0.3 mg (0.3 mL) IM UD PRN 11/06/22 07/31/24 Rx injection, auto-injector (EpiPen) anaphylaxis #2 ea chlorophyllin-alfalfa 20 mg-100 mg 1 tab PO BID 03/12/23 07/31/24 History tablet (Chlorophyll (with alfalfa)) lidocaine-prilocaine 2.5 %-2.5 % 1 applic topical .COMPLEX PRN for 07/16/24 07/31/24 Rx topical cream injection site, blood sugar fingersticks #30 grams vitamin B complex 1 tab PO DAILY 07/16/24 07/31/24 History sulfasalazine 500 mg tablet 0.5 g PO BID #60 tabs 07/17/24 07/31/24 Rx midodrine 2.5 mg tablet 2.5 mg PO TID@0800,1200,1700 #90 07/28/24 07/31/24 Rx tabs risperidone 0.5 mg disintegrating 0.5 mg PO BID #20 tabs 07/28/24 07/31/24 Rx tablet Patient History Medical History Delirium SVT (supraventricular tachycardia) Sensorineural hearing loss (SNHL) of both ears Deformity of left ankle joint History of upper gastrointestinal hemorrhage Vitamin D deficiency disease History of duodenal ulcer Anxiety Concussion Anemia Rheumatoid arthritis Surgical History S/P tooth extraction S/P appendectomy Family History Mother , Age 96 Diabetes Hypertension Stroke Father , age 76 of esophageal cancer Rheumatic arteritis Neoplasm of esophagus Sister Allergy Social History Smoking Status: Former smoker Second Hand Exposure: No; Do You Dip or Chew Tobacco: No; Hx Alcohol Use: No Hx Substance Use: No Preferred Language: Singaporean Communication Ability: Effective Pipe 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 Feels Safe at Home: Yes Seatbelt Use: always Assistive Devices: Brace/Splint/Immobilizer Review of Systems Constitutional: no fever, no fatigue and no weakness Eyes: no diplopia, no eye pain and no worsening vision Ear, Nose, Mouth, Throat: no ear pain, no tinnitus, no hearing loss, no dizzi ness, no snoring, no hoarseness and no dysphagia Respiratory: no cough and no dyspnea Cardiovascular: no chest pain, no palpitations and no lightheadedness Gastrointestinal: no abdominal pain, no nausea and no vomiting Musculoskeletal: + joint pain; no back pain, no neck pain , no radicular pain and no myalgia Integumentary: no rash and no lesions Neurologic: + gait abnormality and + generalized wea kness; no localized weakness, no tingling, no numbness, no tremor(s), no abnormal movements, no headache(s), no abnormal speech, no confusion and no memory loss Psychiatric: no depression, no irritability, no anxiety, no difficulty concentrating, no confusion and no hallucinations Endocrine: no fatigue and no flushing Hematologic / Lymphatic: no easy bleeding and no easy bruising Allergy / Immunological: no urticaria and no problem reported Exam (Neuro) Physical Exam: The patient is right-handed. The patient is awake, alert, and attentive. Speech is normal without any aphasia or dysarthria. Mentation and thought processes are intact, with full orientation and normal fund of knowledge. Mood and affect are normal and appropriate. Appearance and grooming are normal. Short and long-term memory are intact to conversation. Pupils are 4 mm bilaterally and reactive to light. Extraocular eye muscles are intact without nystagmus. Visual acuity and visual christianson seem normal grossly to confrontation. There are no deficits to sensation in the face in all 3 distributions of the fifth cranial nerve bilaterally. Corneal reflexes are positive bilaterally. Facial strength and symmetry was normal bilaterally. Hearing seems mildly decreased bilaterally. Palate moves well without asymmetry. There is normal sternocleidomastoid and trapezius strength bilaterally. Tongue is midline with good strength bilaterally. Neck has a full range of motion without discomfort. There are no cervical bruits bilaterally. There are no cranial or ocular bruits. Heart is without murmur. There is a regular rhythm and rate. Cervical, thoracic, and lumbar spine are nontender to palpation. Gait was not tested but stance sitting up in bed is quite normal. He has severe deformities of his hands/wrist and feet/ankles. With outstretched arms there is no additional/obvious drift. There are no resting, postural, or action tremors. There is no ataxia with finger to nose testing. There is decreased facility in the hands due to joint deformity. No other abnormal involuntary movements are noted. Motor strength is 5/5 diffusely in the arms bilaterally proximally including deltoids, biceps, triceps, brachioradialis, wrist flexors and extensors. Dental Appliance Repairer and intrinsic hand muscles are 4/5 bilaterally. Motor strength is 5/5 diffusely in the legs bilaterally proximal including hip flexors, quadriceps, hamstrings, gastrocnemius, tibialis anterior, tibialis posterior, and Peroneii muscles bilaterally. Toe extensors are 4/and there is atrophy in the extensor digitorum brevis muscles bilaterally. The limbs have good tone without rigidity or spasticity. there is no tenderness to palpation, no myotonia to percussion, and no fasciculations seen. Sensory examination is intact to touch and pin throughout all 4 limbs diffusely. Reflexes are 2/4 in the biceps, triceps, brachioradialis, and quadriceps tendons bilaterally. Achilles tendon reflexes are trace to absent bilaterally. Toes are downgoing with plantar stimulation bilaterally. Peripheral pulses are present and of normal quality distally in all 4 limbs. There is no peripheral edema noted in the limbs. Results & Data Vital Signs (Past 12 Hours) Vital Signs Temp Pulse Pulse Resp BP Pulse Ox O2 Del Method 08/02/24 10:32 79 08/02/24 08:05 Room Air 08/02/24 07:55 36.7 C 87 16 112/62 92 Room Air 08/02/24 03:24 89 14 131/76 96 Room Air 08/02/24 03:23 37.1 C 89 131/78 96 Room Air PG Care Time/CCT Total # of Minutes Spent Total Time Spent with Patient: Total time spent is greater than 50% in coordination of care (as documented) at patient's floor/unit and/or counseling patient: Coding Level of Care Code 17067 INT INP/OBS CARE 3/75MIN Diagnoses Abnormal brain MRI R90.89 Rheumatoid arthritis M06.9 Pulmonary embolism I26.99 Acute cor pulmonale presence: unspecified Chronicity: acute Pulmonary embolism type: unspecified Right leg DVT I82.401 (3) Pulmonary embolism Acute cor pulmonale presence: unspecified Chronicity: acute Pulmonary embolism type: unspecified Qualified Code(s): I26.99 - Other pulmonary embolism without acute cor pulmonale
--- NOTE | 2024-08-02 15:56 | XRay Report ---
EXAM: Radiographs of the Right Shoulder Complete 3 Views INDICATION: Lytic lesion seen on CT. TECHNIQUE: 3 views of the right shoulder. COMPARISON: No relevant prior studies available. FINDINGS: Bones/joints: There is subcortical lucency of the humeral head seen on internal rotated view likely correlates with subchondral cyst noted on CT. No lytic lesion noted. No fracture. No periosteal reaction. No dislocation. Soft tissues: No abnormality noted. No radiopaque foreign body noted. IMPRESSION: Mild degenerative changes of the right shoulder. No lytic lesions identified. ACT 112: Negative or not required by law. Electronically signed by Elizabeth Whyte 08-02-2024 3:56 PM
--- NOTE | 2024-08-02 15:56 | XRay Report ---
EXAM: Radiographs of the Left Shoulder Complete 2 or More Views INDICATION: Possible lytic lesion seen on CT. TECHNIQUE: Two or more views of the left shoulder. COMPARISON: CTA chest 07/31/2024 FINDINGS: Bones/joints: Fine lytic lesions noted in the humeral head consistent with the CT findings. No fracture or dislocation. No periosteal reaction. There is mild degenerative cortical irregularity of the humeral head at the rotator cuff insertion. No fracture or dislocation. Soft tissues: No abnormality noted. No radiopaque foreign body noted. IMPRESSION: Lytic lesions left humeral head correlate with the CT findings. No fracture. Metabolic and metastatic disease considered. ACT 112: Negative or not required by law. Electronically signed by Elizabeth Whyte 08-02-2024 3:56 PM
--- NOTE | 2024-08-02 16:52 | Hospitalist Progress Note ---
Date of Service August 02, 2024 Assessment & Plan (1) Pulmonary embolism: Plan: 69yo male with long-standing rheumatoid arthritis and recent admission for SVT/delirium/deconditioning/ambulatory dysfunction presents with tachycardia noted at [facility]. Upon presentation had significantly elevated d-dimer level which prompted CTA chest to r/o PE. CTA chest with b/l PEs - moderate clot burden. Tachycardia likely 2nd to PEs. Tachycardia resolved. Risk factors - immobility, recent prolonged hospital stay, rheumatoid arthritis. Can't rule out malignancy (see below). Dopplers b/l LEs with RLE DVT as below. Echo without RV strain. Troponin was negative. Cont heparin infusion. If patient does not need any procedures for remainder of his course then ultimately transition to DOAC (Eliquis, etc). Remains stable in room air. (2) Right leg DVT: Plan: peroneal vein DVT - RLE cont heparin infusion ultimately will need DOAC length of Rx - potentially lifelong given the PE burden on CTA (3) Abnormal brain MRI: Plan: due to pt's presenting encephalopathy (and recent confusion during prior admission earlier this month) elected to obtain MRI brain this revealed left frontal lobe abnormality - stroke vs inflammatory process vs other; likely not metastatic disease as there is no post-contrast enhancement I do believe this finding explains his recent confusion CTA head/neck negative Limited echo without thrombus; bubble study today DOES show a PFO [place] [facility] [place] Differential -- embolic strokes vs cerebritis; former favored some discussion about potentially pursuing LP but deferring such for now continue anticoagulation (4) Encephalopathy: Plan: patient had acute encephalopathy during his prior hospital stay requiring use of antipsychotic therapy (risperdal) he had CT head at that time that was negative for acute findings he was seen by psychiatry for the confusion TSH wnl B12 level wnl B1 level sent/pending pt's mental status is improved but still with mild paranoia if the paranoia continues could consider resuming antipsychotic but hold off for now abnormal brain MRI - see #3 above leave risperdal as needed rather than scheduled (5) Lytic bone lesions on xray: Plan: CTA chest incidentally showed the following abnormality -- "New well-defined lytic lesions noted in the visualized portion of each humeral head with joint effusions left greater than right." This is worrisome for malignancy - e.g. multiple myeloma, etc. Cannot rule out mets from distant site. SPEP, UPEP sent Consider CT abd/pelvis. He has had at least 10 kg of weight loss over the previous year and appears to be failing to thrive of late. See discussion above re: abnormal brain MRI. Plain x-rays ordered for today and Dr Hart from ortho consulted for his opinion; appreciate his assistance. (6) Sinus tachycardia: Plan: 2nd to #1 resolved with supportive care, IV fluids can't rule out SVT at the [facility] when they found his HR to be in the 170s -- no EKG from that incident no SVT seen thus far on tele cont telemetry monitoring (7) Acute hypotension: Plan: 2nd to PEs 2nd to dehydration (markedly volume depleted on exam at admission) resolved (8) Acute hyponatremia: Plan: 133 at presentation 2nd volume depletion based on his examination resolved s/p IV fluids (9) Rheumatoid arthritis: Plan: long-standing, previously followed by Dr Rich Tilley currently only on sulfasalazine BID he has advanced joint changes on exam from his RA suspect uncontrolled RA for lengthy period of time reading the chart it seems he has been resistant to more aggressive therapy for his RA in the past sed rate/crp elevated today likely from his RA; can't rule out other processes (ie - lytic lesions in shoulders b/l, etc) (10) History of duodenal ulcer: Plan: placed on PPI therapy in the setting of needing anticoagulation (11) PFO (patent foramen ovale): Plan: PFO is present on echo bubble study if the MRI findings are embolic strokes there is good chance that he could have had clot (from his DVT) shunt across the PFO and to the brain Rx -- anticoagulation Plan updated pt's sister Wanda Quijano at # listed in chart - extensive update given 08/01/24 she provided an additional # -- [phone] -- if we can't reach her at # listed in chart care d/w Dr Holt from neurology PT/OT evals dispo - [facility] Admission and Anticipated Discharge Date Admission Date: July 31, 2024 Subjective patient overall feeling well today he was sitting in the chair during the visit eating ok drinking better he asked appropriate questions during the encounter at one point, however, he looked at me and said "I want you to be here when they make my bed up" (?) he was referring to the [facility] making his hospital bed he then asked "did you talk to my sister about the FDA?" does c/o b/l shoulder pain no dyspnea Review of Systems Review of Systems: cv - no chest pain pulm - no dyspnea or cough GI - no abd pain or N/V Physical Exam Physical Exam: gen - thin, sitting in chair comfortably, flat affect; still with mild paranoia mouth - MMM; thrush on tongue? neck - no JVD heart - RRR, s1 s2, no murmur lungs - CTA b/l abd - soft NT ND BS+; no HSM; umbilical hernia - reducible ext - b/l foot/ankle deformities; orthoses in place b/l feet/ankles; right leg is larger than left leg; no edema vascular - b/l foot pulses 2+ musculo - severe RA changes of b/l hands, wrists, ankles; b/l shoulders with mild joint effusions psych - a/o x 3 Results & Data Results & Data Vital Signs (Past 12 Hours) Vital Signs Temp Pulse Pulse Resp BP Pulse Ox O2 Del Method 08/02/24 16:20 37.2 C 87 16 103/67 96 Room Air 08/02/24 13:49 87 08/02/24 11:53 36.4 C L 78 16 102/60 92 Room Air 08/02/24 10:32 79 08/02/24 08:05 Room Air 08/02/24 07:55 36.7 C 87 16 112/62 92 Room Air Laboratory Results Laboratory Results - last 24 hr 08/01/24 08/02/24 08/02/24 22:22 06:01 Unknown ESR 55 H Heparin Anti-Xa, Unfract 0.43 0.57 Sodium 135 L Potassium 3.7 Chloride 105 Carbon Dioxide 25 Anion Gap 5 BUN 8 Creatinine 0.57 L Est Cr Clr Drug Dosing 132.4 eGFR 105.47 BUN/Creatinine Ratio 14.0 Glucose 104 H Calcium 8.4 L C-Reactive Protein 11.67 H U Random Total Protein Pending Ur Creatinine mg/dL Pending Protein/Creatinin Ratio Pending Urine Albumin (%) Pending U [id number] (%) Pending U [id number] (%) Pending U Beta Globulin (%) Pending U Gamma Globulin (%) Pending U Abnormal Prot Band 1 Pending U Abnormal Prot Band 2 Pending U Abnormal Prot Band 3 Pending Urine PEP Interpret Pending Lyme Disease Screen Negative Diagnostic Findings Shoulder X-Ray 08/02/24 14:18 EXAM: Radiographs of the Left Shoulder Complete 2 or More Views INDICATION: Possible lytic lesion seen on CT. TECHNIQUE: Two or more views of the left shoulder. COMPARISON: CTA chest 07/31/2024 FINDINGS: Bones/joints: Fine lytic lesions noted in the humeral head consistent with the CT findings. No fracture or dislocation. No periosteal reaction. There is mild degenerative cortical irregularity of the humeral head at the rotator cuff insertion. No fracture or dislocation. Soft tissues: No abnormality noted. No radiopaque foreign body noted. IMPRESSION: Lytic lesions left humeral head correlate with the CT findings. No fracture. Metabolic and metastatic disease considered. ACT 112: Negative or not required by law. Electronically signed by Elizabeth Whyte 08-02-2024 3:56 PM Shoulder X-Ray 08/02/24 14:18 EXAM: Radiographs of the Right Shoulder Complete 3 Views INDICATION: Lytic lesion seen on CT. TECHNIQUE: 3 views of the right shoulder. COMPARISON: No relevant prior studies available. FINDINGS: Bones/joints: There is subcortical lucency of the humeral head seen on internal rotated view likely correlates with subchondral cyst noted on CT. No lytic lesion noted. No fracture. No periosteal reaction. No dislocation. Soft tissues: No abnormality noted. No radiopaque foreign body noted. IMPRESSION: Mild degenerative changes of the right shoulder. No lytic lesions identified. ACT 112: Negative or not required by law. Electronically signed by Elizabeth Whyte 08-02-2024 3:56 PM PG Care Time/CCT Total # of Minutes Spent Total Time Spent with Patient: Total time spent is greater than 50% in coordination of care (as documented) at patient's floor/unit and/or counseling patient: Coding Level of Care Code 73932 SUB INP/OBS CARE 3/50MIN Diagnoses Pulmonary embolism I26.99 Acute cor pulmonale presence: unspecified Chronicity: acute Pulmonary embolism type: unspecified Right leg DVT I82.401 Abnormal brain MRI R90.89 Encephalopathy G93.40 Lytic bone lesions on xray M89.8X9 Sinus tachycardia R00.0 Acute hypotension I95.9 Acute hyponatremia E87.1 Rheumatoid arthritis M06.9 History of duodenal ulcer Z87.19 PFO (patent foramen ovale) Q21.12 (1) Pulmonary embolism Acute cor pulmonale presence: unspecified Chronicity: acute Pulmonary embolism type: unspecified Qualified Code(s): I26.99 - Other pulmonary embolism without acute cor pulmonale
--- NOTE | 2024-08-02 18:04 | Orthopedic Consultation ---
Date of Consultation August 02, 2024 Assessment & Plan (1) Lytic bone lesions on xray: (2) Pulmonary embolism: (3) PFO (patent foramen ovale): (4) Abnormal brain MRI: (5) Right leg DVT: (6) Encephalopathy: (7) Acute hypotension: (8) Sinus tachycardia: (9) Elevated lactic acid level: (10) Rheumatoid arthritis: Sandi Muir is a 69-year-old gentleman who was admitted to the hospital with pulmonary emboli and encephalopathy. During evaluation of his chest for his pulmonary emboli, the patient did have a CT scan which demonstrated lytic lesions in the bilateral shoulders. For these, orthopedics was consulted. The patient also has a history of rheumatoid arthritis, and altered mentation with an abnormal brain MRI. With regards to his bilateral shoulders, had a long discussion with the patient regarding his findings on imaging. We discussed in great detail the pathoanatomy, pathophysiology, treatment options And differential diagnosis. I expressed to the patient that it is unclear what exactly these lytic lesions represent. It is entirely possible that these lesions are related to his rheumatoid arthritis, however malignancy cannot be excluded without a biopsy. I expressed to him that in the realm of orthopedics, there are specialty surgeons who exclusively manage patients with these types of lesions on x-ray, and I think it is best that the patient sees one of them in follow-up. Dr. Espinoza at [facility], Dr. Fletcher at [facility], or Dr Boyce at [facility] are all orthopedic oncologist who I believe the patient would be best served to see. The patient has had an SPEP and UPEP ordered and I do believe this is appropri ate. A next step in working up these lesions would be a bone scan which could be ordered here as well as MRIs with and without contrast. Acutely, I do believe most pressing issue remains his pulmonary emboli and altered mentation, management of these conditions as per the medical team. History of Present Illness Reason for Consultation: bilateral shoulder lesions Attending Physician: Jeff Kelley MD History of Present Illness 69yo male with history of long-standing rheumatoid arthritis, PUD, and recent hospitalization from 07/17/24 to 07/28/24 for SVT (stay complicated by delirium & placement issues) presents from [facility] due to tachycardia. By report his HR was found to be in the 170s and was given a beta wong for such. His HR continued to be high and thus he was brought to the ER. Upon arrival to [facility] his HR was in the low 100s. His blood pressure was also found to be low. He had a CT scan of his chest which demonstrated pulmonary embolii and as such anticoagulation was initiated and he was admitted. He has ultrasound studies demonstrating DVTs and had a brain MRI due to his presention of encephalopathy and recent confusion which revealed left frontal lobe abnormality - stroke vs inflammatory process vs other; likely not metastatic disease as there is no post-contrast enhancement. Orthopaedics was consulted for bilateral lytic lesions in his bilateral proximal humerii seen on CT chest. On my evaluation, The patient still seems somewhat confused. He is able to mention that he is in the hospital and he remembers the names of the doctors that he saw, but he appears paranoid. Patient notes recent weight loss, but denies any significant pain in his shoulders. He denies any previous issues with his shoulders. Allergies Allergy/AdvReac Type Severity Reaction Status Date / Time bee venom protein (honey bee) Allergy Mild Anaphylaxis Verified 07/16/24 22:50 Corticosteroids Allergy Mild ANAPHYLAXIS Verified 05/26/24 13:50 (Glucocorticoids) soy Allergy Mild Anaphylaxis Verified 07/16/24 22:50 wheat Allergy Mild ANAPHYLAXIS Verified 05/26/24 13:50 olive oil Allergy Unknown Unknown Verified 07/16/24 22:50 NSAIDS (Non-Steroidal AdvReac Intermediate BLEEDING Verified 07/16/24 22:50 Anti-Inflamma Home Medications Medication Instructions Recorded Confirmed Type ascorbate calcium (vitamin C) 500 1 gm PO DAILY 03/01/19 07/31/24 History mg tablet cholecalciferol (vitamin D3) 50 6,000 units PO DAILY 03/01/19 07/31/24 History mcg (2,000 unit) capsule ferrous sulfate 325 mg (65 mg 650 mg PO DAILY 03/01/19 07/31/24 History iron) tablet flaxseed oil 15 - 45 ml miscellaneous DAILY 03/01/19 07/31/24 History multivitamin (Daily Multi-Vitamin 1 tab PO DAILY 03/01/19 07/31/24 History tablet) vitamin E (dl, acetate) 180 mg 400 units PO DAILY 03/01/19 07/31/24 History (400 unit) capsule epinephrine 0.3 mg/0.3 mL 0.3 mg (0.3 mL) IM UD PRN 11/06/22 07/31/24 Rx injection, auto-injector (EpiPen) anaphylaxis #2 ea chlorophyllin-alfalfa 20 mg-100 mg 1 tab PO BID 03/12/23 07/31/24 History tablet (Chlorophyll (with alfalfa)) lidocaine-prilocaine 2.5 %-2.5 % 1 applic topical .COMPLEX PRN for 07/16/24 07/31/24 Rx topical cream injection site, blood sugar fingersticks #30 grams vitamin B complex 1 tab PO DAILY 07/16/24 07/31/24 History sulfasalazine 500 mg tablet 0.5 g PO BID #60 tabs 07/17/24 07/31/24 Rx midodrine 2.5 mg tablet 2.5 mg PO TID@0800,1200,1700 #90 07/28/24 07/31/24 Rx tabs risperidone 0.5 mg disintegrating 0.5 mg PO BID #20 tabs 07/28/24 07/31/24 Rx tablet Patient History Medical History Delirium SVT (supraventricular tachycardia) Sensorineural hearing loss (SNHL) of both ears Deformity of left ankle joint History of upper gastrointestinal hemorrhage Vitamin D deficiency disease History of duodenal ulcer Anxiety Concussion Anemia Rheumatoid arthritis Surgical History S/P tooth extraction S/P appendectomy Family History Mother , Age 96 Diabetes Hypertension Stroke Father , age 76 of esophageal cancer Rheumatic arteritis Neoplasm of esophagus Sister Allergy Social History Smoking Status: Former smoker Second Hand Exposure: No; Do You Dip or Chew Tobacco: No; Tobacco Cessation Education Requested by Patient: No Hx Alcohol Use: No Hx Substance Use: No Preferred Language: Gibraltarian Communication Ability: Effective Java Lead Engineer Required: No Beliefs That Will Affect Care: None marital status: Single Current Living Situation: Personal Care Facility Current Living Situation Comment: Currently at [facility] current occupational status: retired 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 He does have some pain at the end ranges of motion, and some weakness bilaterally but these are equal. No open wounds appreciated. Nontender to palpation. Results & Data Vital Signs (Past 12 Hours) Vital Signs Temp Pulse Pulse Resp BP Pulse Ox O2 Del Method 08/02/24 16:20 37.2 C 87 16 103/67 96 Room Air 08/02/24 13:49 87 08/02/24 11:53 36.4 C L 78 16 102/60 92 Room Air 08/02/24 10:32 79 08/02/24 08:05 Room Air 08/02/24 07:55 36.7 C 87 16 112/62 92 Room Air Diagnostic Findings XRs of bilateral shoulders and CT chest as it relates to his shoulders was personally interpreted and reviewed. there are lytic lesions in bilateral inferior humeral heads. These lesions are better appreciated on CT scan then on plain films. (2) Pulmonary embolism Acute cor pulmonale presence: unspecified Chronicity: acute Pulmonary embolism type: unspecified Qualified Code(s): I26.99 - Other pulmonary embolism without acute cor pulmonale
[2024-08-02] MEDS: NYSTATIN SUSP 500,000 U/5 ML UDC PO SCH (18:14)
[2024-08-02] MEDS: BENZONATATE 100 MG CAPSULE PO PRN (19:43)
[2024-08-03 07:18] LABS: ANTI-Xa, UFH(UnfractionatedHep 0.87 IU/ml (0.3-0.7)
[2024-08-03 13:46] LABS: ANTI-Xa, UFH(UnfractionatedHep < 0.10 IU/ml (0.3-0.7)
--- NOTE | 2024-08-03 18:40 | Hospitalist Progress Note ---
Date of Service August 03, 2024 Assessment & Plan (1) Pulmonary embolism: Plan: 69yo male with long-standing rheumatoid arthritis and recent admission for SVT/delirium/deconditioning/ambulatory dysfunction presents with tachycardia noted at [facility]. Upon presentation had significantly elevated d-dimer level which prompted CTA chest to r/o PE. CTA chest with b/l PEs - moderate clot burden. Tachycardia was likely 2nd to PEs. Tachycardia resolved. Risk factors - immobility, recent prolonged hospital stay, rheumatoid arthritis. Can't rule out malignancy (see below). Dopplers b/l LEs with RLE DVT as below. Echo without RV strain. Troponin was negative. Cont heparin infusion. If patient does not need any procedures for remainder of his course then ultimately transition to DOAC (Eliquis). Remains stable in room air. Length of Rx of anticoagulation - possibly lifelong. 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 due to pt's presenting encephalopathy (and recent confusion during prior admission earlier this month) elected to obtain MRI brain this revealed left frontal lobe abnormality - stroke vs inflammatory process vs other; likely not metastatic disease as there is no post-contrast enhancement I do believe this finding explains his recent confusion CTA head/neck negative Limited echo without thrombus; bubble study with PFO Dr Holt from [facility] Neurology consulted Differential -- embolic strokes vs cerebritis; former favored some discussion about potentially pursuing LP (to rule out infectious process or inflammatory process) but ultimately Dr Holt did not recommend such continue anticoagulation (4) Encephalopathy: Plan: patient had acute encephalopathy during his prior hospital stay requiring use of antipsychotic therapy (risperdal) 2nd to embolic strokes? TSH wnl B12 level wnl B1 level sent/pending pt's mental status has improved; he just has occasional mild paranoia but no agitation if the paranoia continues could consider resuming antipsychotic but hold off for now abnormal brain MRI - see #3 above leave risperdal as needed rather than scheduled (5) Lytic bone lesions on xray: Plan: CTA chest incidentally showed the following abnormality -- "New well-defined lytic lesions noted in the visualized portion of each humeral head with joint effusions left greater than right." This is worrisome for malignancy - e.g. multiple myeloma, etc. Cannot rule out mets from distant site. SPEP, UPEP sent Consider CT abd/pelvis. He has had at least 10 kg of weight loss over the previous year and appears to be failing to thrive of late. x-rays of b/l shoulders -- lytic lesions confirmed of the left shoulder Dr Hart from ortho consulted - appreciate his assistance lytic lesions could be from RA he advised bone scan ordered whole body bone scan -- to be done 08/04/24 bone scan results will dictate next steps (6) Sinus tachycardia: Plan: 2nd to #1 resolved with supportive care, IV fluids can't rule out SVT at the SNF when they found his HR to be in the 170s -- no EKG from that incident no SVT seen on tele this admission cont telemetry monitoring (7) Acute hypotension: Plan: present at time of admission 2nd to PEs 2nd to dehydration (markedly volume depleted on exam at admission) resolved (8) Acute hyponatremia: Plan: 133 at presentation 2nd volume depletion based on his examination resolved s/p IV fluids (9) Rheumatoid arthritis: Plan: long-standing, previously followed by Dr Rich Tilley currently only on sulfasalazine BID he has advanced joint changes on exam from his RA suspect uncontrolled RA for lengthy period of time reading the chart it seems he has been resistant to more aggressive therapy for his RA in the past sed rate/crp elevated likely from his RA; can't rule out other processes (ie - lytic lesions in shoulders b/l, etc) he wishes to switch to Dr Massey from [facility] Rheumatology after this admission (10) History of duodenal ulcer: Plan: placed on PPI therapy in the setting of needing anticoagulation (11) PFO (patent foramen ovale): Plan: PFO is present on echo bubble study if the MRI findings are embolic strokes there is good chance that he could have had clot (from his DVT) shunt across the PFO and to the brain Rx -- anticoagulation (12) Candidiasis of mouth and esophagus: Plan: cont nystatin solution 5ml QID Plan updated pt's sister Wanda Quijano at # listed in chart - extensive update given 08/01/24 she provided an additional # -- [phone] -- if we can't reach her at # listed in chart PT/OT evals appreciated dispo - SNF - [facility]? pt does not wish to return to [facility] Admission and Anticipated Discharge Date Admission Date: July 31, 2024 Subjective patient resting comfortably in the bed denies any new complaints asks questions about his disposition (does NOT want to go back to [facility]), his plan of care, etc. denies any dyspnea c/o mild b/l shoulder pain no chest pain no abd pain eating well tele - wnl overnight Review of Systems Review of Systems: cv - no orthopnea pulm - no cough GI - no nausea/emesis Physical Exam Physical Exam: gen - thin, laying comfortably in bed, NAD mouth - MMM; thrush on tongue improved neck - no JVD heart - RRR, s1 s2, no murmur lungs - CTA b/l abd - soft NT ND BS+; no HSM; umbilical hernia - reducible ext - b/l foot/ankle deformities; orthoses in place b/l feet/ankles; no edema vascular - b/l foot pulses 2+ musculo - severe RA changes of b/l hands, wrists, ankles psych - a/o x 3 Results & Data Results & Data Vital Signs (Past 12 Hours) Vital Signs Temp Pulse Pulse Resp BP Pulse Ox O2 Del Method 08/03/24 15:00 36.5 C 68 18 96/59 L 96 Room Air 08/03/24 11:16 36.6 C 75 16 104/68 98 Room Air 08/03/24 09:23 88 08/03/24 07:58 36.9 C 102 H 18 111/69 95 Room Air Laboratory Results Laboratory Results - last 24 hr 08/03/24 08/03/24 05:23 13:01 Heparin Anti-Xa, Unfract 0.87 H* < 0.10 L ALIREZA Screen Pending Beta-2-GPI IgG Ab Pending Beta-2-GPI IgA Ab Pending Beta-2-GPI IgM Ab Pending Phosphatidyl&Prothr IgG Pending Phosphatidyl&Prothr IgM Pending Anti-Phospholipid Intrp Pending Anti-Cardiolipin IgG Ab Pending Anti-Cardiolipin IgA Ab Pending Anti-Cardiolipin IgM Ab Pending Miscellaneous Test Pending Diagnostic Findings Shoulder X-Ray 08/02/24 14:18 EXAM: Radiographs of the Left Shoulder Complete 2 or More Views INDICATION: Possible lytic lesion seen on CT. TECHNIQUE: Two or more views of the left shoulder. COMPARISON: CTA chest 07/31/2024 FINDINGS: Bones/joints: Fine lytic lesions noted in the humeral head consistent with the CT findings. No fracture or dislocation. No periosteal reaction. There is mild degenerative cortical irregularity of the humeral head at the rotator cuff insertion. No fracture or dislocation. Soft tissues: No abnormality noted. No radiopaque foreign body noted. IMPRESSION: Lytic lesions left humeral head correlate with the CT findings. No fracture. Metabolic and metastatic disease considered. ACT 112: Negative or not required by law. Electronically signed by Elizabeth Whyte 08-02-2024 3:56 PM Shoulder X-Ray 08/02/24 14:18 EXAM: Radiographs of the Right Shoulder Complete 3 Views INDICATION: Lytic lesion seen on CT. TECHNIQUE: 3 views of the right shoulder. COMPARISON: No relevant prior studies available. FINDINGS: Bones/joints: There is subcortical lucency of the humeral head seen on internal rotated view likely correlates with subchondral cyst noted on CT. No lytic lesion noted. No fracture. No periosteal reaction. No dislocation. Soft tissues: No abnormality noted. No radiopaque foreign body noted. IMPRESSION: Mild degenerative changes of the right shoulder. No lytic lesions identified. ACT 112: Negative or not required by law. Electronically signed by Elizabeth Whyte 08-02-2024 3:56 PM PG Care Time/CCT Total # of Minutes Spent Total Time Spent with Patient: Total time spent is greater than 50% in coordination of care (as documented) at patient's floor/unit and/or counseling patient: Coding Level of Care Code 53290 SUB INP/OBS CARE 2/35MIN Diagnoses Pulmonary embolism I26.99 Acute cor pulmonale presence: unspecified Chronicity: acute Pulmonary embolism type: unspecified Right leg DVT I82.401 Abnormal brain MRI R90.89 Encephalopathy G93.40 Lytic bone lesions on xray M89.8X9 Sinus tachycardia R00.0 Acute hypotension I95.9 Acute hyponatremia E87.1 Rheumatoid arthritis M06.9 History of duodenal ulcer Z87.19 PFO (patent foramen ovale) Q21.12 Candidiasis of mouth and esophagus B37.81; B37.0 (1) Pulmonary embolism Acute cor pulmonale presence: unspecified Chronicity: acute Pulmonary embolism type: unspecified Qualified Code(s): I26.99 - Other pulmonary embolism without acute cor pulmonale
[2024-08-03] MEDS: risperiDONE ODT 0.5 MG SOLTAB PO PRN (20:05)
[2024-08-03 20:51] LABS: ANTI-Xa, UFH(UnfractionatedHep 0.56 IU/ml (0.3-0.7)
[2024-08-03] MEDS: risperiDONE 1 MG TABLET PO ONE (23:00)
[2024-08-04 08:27] LABS: Albumin 2.2 g/dL (3.8-4.8); Alpha 1 Globulin 0.5 g/dL (0.2-0.3); Alpha 2 Globulin 0.7 g/dL (0.5-0.9); Beta-1-Globulin 0.3 g/dL (0.4-0.6); Beta-2-Globulin 0.5 g/dL (0.2-0.5); Gamma Globulin 0.7 g/dL (0.8-1.7); Monoclonal Protein Band 1 DNR g/dL (NONE DETECTED); Monoclonal Protein Band 2 DNR g/dL (NONE DETECTED); Monoclonal Protein Band 3 DNR g/dL (NONE DETECTED); Total Protein 4.8 g/dL (6.1-8.1)
[2024-08-04 11:47] LABS: ANTI-Xa, UFH(UnfractionatedHep 0.87 IU/ml (0.3-0.7)
--- NOTE | 2024-08-04 12:02 | Nuclear Medicine Report ---
NM bone scan whole body CLINICAL HISTORY: lytic lesions b/l shoulders, other lesions?? TECHNIQUE: -Scan region: Whole body. -Injected dose: 26.3 mCi Tc-99m MDP. Comparison: Comparison is made to shoulder radiographs 08/02/2024 and CTA chest 07/31/2024 FINDINGS: Degenerative foci of uptake are seen most prominently in the knees, shoulders, and ankles b ilaterally. There is also focal uptake in the right elbow. There is ill-defined soft tissue uptake ab out the left glenohumeral joint greater than right. Expected skeletal and soft tissue radiopharmaceut ical activity is otherwise identified. IMPRESSION: Degenerative changes without focal abnormal uptake. Diffuse soft tissue uptake about the left greater than right shoulder joints which may reflect degenerative changes in this patient with known effusio ns. No additional discrete foci of uptake are seen. ACT 112: Negative or not required by law. Electronically signed by: Aaron Rasmussen M.D. 08/04/2024 12:01 PM
--- NOTE | 2024-08-04 17:21 | Hospitalist Progress Note ---
Date of Service August 04, 2024 Assessment & Plan (1) Pulmonary embolism: Plan: 69yo male with long-standing rheumatoid arthritis and recent admission for SVT/delirium/deconditioning/ambulatory dysfunction presents with tachycardia noted at [facility]. He was found to have bilateral PEs. He was also found to have confusion and follow-up MRI was suspicious for paradoxic embolic stroke in the setting of PE and PFO, left frontal lobe abnormality was noted. He was heparinized. During evaluation concern was also raised for lytic bone lesions for which he underwent a bone scan which did not show focal abnormal uptake. He was discharged on Eliquis. Bilateral PE, high clot burden Follow-up Dopplers with right lower extremity DVT Placed on heparin GTT. Heparin was continued until bone lesions were further evaluated. Will transition patient to Eliquis on discharge TTE without RV strain. Troponin negative Anticipate lifelong anticoagulation (2) Right leg DVT: Plan: Anticoagulation as noted (3) Abnormal brain MRI: Plan: suspected to be due to embolic strokes in the setting of RLE DVT and PFO did he shunt across the PFO leading to the strokes? due to pt's presenting encephalopathy (and recent confusion during prior admission earlier this month) MRI was obtained MRIbrain: left frontal lobe abnormality - stroke vs inflammatory process vs other; likely not metastatic disease as there is no post-contrast enhancement CTA head/neck negative - Limited echo without thrombus; bubble study with PFO Neurology was consulted. Did not recommend LP to rule out infectious or inflammatory process. favored embolic stroke. Anticoagulation was continued (4) Encephalopathy: Plan: patient had acute encephalopathy during his prior hospital stay requiring use of antipsychotic therapy (risperdal) 2nd to embolic strokes? TSH wnl B12 level wnl B1 level sent/pending Risperdal was ordered as needed for agitation (5) Lytic bone lesions on xray: Plan: CTAchest: New well-defined lytic lesions of the humeral head and with joint effusions left greater than right Orthopedics did see patient and was consulted during admission. Suspected lytic lesions could be from rheumatoid arthritis but recommended bone scan for further characterization Due to concern for potential malignancy bone scan was ordered. Degenerative changes without focal abnormal uptake. Diffuse soft tissue uptake about the left greater than right shoulder joints which may reflect degenerative changes in this patient with known effusions. No additional discrete foci of uptake are seen." No focal abnormal uptake was noted and elbow uptake was thought to be more degenerative however given suspicion for malignancy with pending UPEP/SPEP and weight loss will hold transition to [facility] until discharge, and obtain additional x-rays of the elbow to further evaluate. If these do not show any lytic lesions amenable to biopsy then can progress to outpatient follow-up. Did discuss with orthopedics who recommended the patient still follow-up with orthopedic oncology as an outpatient Continue to follow SPEP/UPEP. ??MM, pt also with significant weight loss and failure to thrive (6) Sinus tachycardia: Plan: can't rule out SVT at the SNF when they found his HR to be in the 170s -- no EKG from that incident no SVT seen on tele this admission cont telemetry monitoring (7) Acute hypotension: Plan: present at time of admission 2nd to PEs 2nd to dehydration (markedly volume depleted on exam at admission) resolved (8) Acute hyponatremia: Plan: 133 at presentation 2nd volume depletion based on his examination resolved s/p IV fluids (9) Rheumatoid arthritis: Plan: Longstanding RA followed with Dr. Mcdonald Patient is continued on sulfasalazine twice daily Does have advanced joint changes consistent with uncontrolled RA. Based on lack of focal uptake on bone scan suspect this may also be the cause of his lesions Patient wishes to follow-up with Dr. Massey [facility] rheumatology moving forward (10) History of duodenal ulcer: Plan: placed on PPI therapy in the setting of needing anticoagulation (11) PFO (patent foramen ovale): (12) Candidiasis of mouth and esophagus: Plan: cont nystatin solution 5ml QID Plan Patients sister Wanda Quijano at # listed in chart - extensive update given 08/01/24. Can also be reached at #[phone] if we can't reach her at # listed in chart PT/OT barbara appreciated dispo -bottle caser working on disposition and placement. Patient's first choice would be [facility], second choice [facility]. Wishes to avoid returning to [facility] if possible. Admission and Anticipated Discharge Date Admission Date: July 31, 2024 Subjective Seen at the bedside. Somewhat flat affect, but engages in conversation. He is somewhat circumferential at bedside, but otherwise appropriate. Denies chest pain, chest pressure. No pain. Reviewed his bone scan and discussed that this shows degenerative changes without focal abnormal uptake. Given this we will defer biopsy at this time, and continue to follow outpatient UPEP/SPEP results. Patient would like his blood thinner switch to a pill tonight if possible, will switch to Eliquis. He does express that on discharge he would prefer to go to [facility] as his first choice, [facility] second choice, and would like to avoid going to [facility]. Physical Exam Physical Exam: General: Oriented to name and place. Lays comfortably in bed, keeps eyes closed during most of conversation but does open eyes and make good eye contact and answers questions appropriate intermittently. Flat affect. Thought mostly linear but intermittently circumferential and slightly forgetful HEENT: Atraumatic, normocephalic. Pulm: CTAB A&P. -wheezes, -rales, -rhonchi. Symmetrical chest rise. No increase in work of breathing. No respiratory distress. Cardiac: RRR, -mrg. Radial pulses intact and symmetrical. Extremities: Severe arthritic changes of the hands, wrist, ankles bilaterally Results & Data Results & Data Vital Signs (Past 12 Hours) Vital Signs Temp Pulse Pulse Resp BP Pulse Ox O2 Del Method 08/04/24 15:43 103 H 08/04/24 15:21 36.9 C 114 H 16 131/59 L 96 Room Air 08/04/24 10:37 37.2 C 107 H 18 126/66 94 Room Air 08/04/24 08:57 Room Air 08/04/24 07:02 88 08/04/24 07:00 36.8 C 88 16 119/74 96 Room Air PG Care Time/CCT Total # of Minutes Spent Total Time Spent with Patient: Total time spent is greater than 50% in coordination of care (as documented) at patient's floor/unit and/or counseling patient: Coding Level of Care Code 79447 SUB INP/OBS CARE 3/50MIN Diagnoses Pulmonary embolism I26.99 Acute cor pulmonale presence: unspecified Chronicity: acute Pulmonary embolism type: unspecified Right leg DVT I82.401 Abnormal brain MRI R90.89 Encephalopathy G93.40 Lytic bone lesions on xray M89.8X9 Sinus tachycardia R00.0 Acute hypotension I95.9 Acute hyponatremia E87.1 Rheumatoid arthritis M06.9 History of duodenal ulcer Z87.19 PFO (patent foramen ovale) Q21.12 Candidiasis of mouth and esophagus B37.81; B37.0 (1) Pulmonary embolism Acute cor pulmonale presence: unspecified Chronicity: acute Pulmonary embolism type: unspecified Qualified Code(s): I26.99 - Other pulmonary embolism without acute cor pulmonale
--- NOTE | 2024-08-04 18:15 | XRay Report ---
Study: Right elbow 3 views History: Pain. Abnormal bone scan uptake Comparison: None Findings: There is no acute fracture or dislocation. Alignment is anatomic. Joint spaces are well maintained. There is a prominent elbow joint effusion. About the proximal ulna, radial aspect, there is a well-defined, punched-out appearing defect in the bone with smooth, sclerotic margins and overhanging edges without definite intra-articular extension. Bone mineralization is normal. Degenerative osteophytes seen of the radial head and olecranon. Impression: There is a prominent elbow joint effusion. About the radial aspect of the proximal ulna, there is a smoothly marginated, punched-out lesion with overhanging edges, that raises the suspicion for gouty arthritis. Electronically signed by Benji Marinelli 08-04-2024 6:15 PM
[2024-08-05 07:57] LABS: Creatinine Ur 22 mg/dL (20-320); Protein, Urine Random <4 mg/dL (5-25); Ur Albumin % 30 %; Ur Alpha-1-globulin % 11 %; Ur Alpha-2-globulin % 27 %; Ur Beta Globulin % 14 %; Ur Gamma Globulin % 18 %; Ur Protein/Creat Ratio mg/g NOTE mg/g creat (25-148); Urine Abnormal Protein Band 1 DNR mg/dL (NONE DETECTED); Urine Abnormal Protein Band 2 DNR mg/dL (NONE DETECTED); Urine Protein/Creatinine Ratio NOTE (0.025-0.148)
--- NOTE | 2024-08-05 18:36 | Hospitalist Progress Note ---
Date of Service August 05, 2024 Assessment & Plan (1) Pulmonary embolism: Plan: 69yo male with long-standing rheumatoid arthritis and recent admission for SVT/delirium/deconditioning/ambulatory dysfunction presents with tachycardia noted at [facility]. He was found to have bilateral PEs. He was also found to have confusion and follow-up MRI was suspicious for left frontal paradoxic embolic stroke in the setting of PE and PFO. He was heparinized then later transitioned to apixaban. During evaluation concern was also raised for lytic bone lesions for which he underwent a bone scan which did not show focal abnormal uptake. Bilateral PE, high clot burden. right popliteal DVT on duplex imaging TTE without RV strain. Troponin negative Placed on heparin GTT. Heparin was continued until bone lesions were further evaluated. stop heparin and start apixaban today Anticipate lifelong anticoagulation (2) Right leg DVT: Plan: Anticoagulation as noted (3) Abnormal brain MRI: Plan: due to pt's presenting encephalopathy (and recent confusion during prior admission earlier this month) MRI was obtained MRIbrain: left frontal lobe abnormality - stroke vs inflammatory process vs other; likely not metastatic disease as there is no post-contrast enhancement. old left cerebellar infarct CTA head/neck negative - Limited echo without thrombus; bubble study with PFO Neurology was consulted. Did not recommend LP to rule out infectious or inflammatory process. favored embolic stroke. Anticoagulation was continued suspected to be due to paradoxical embolic strokes in the setting of RLE DVT and PF (4) Encephalopathy: Plan: patient had acute encephalopathy during his prior hospital stay requiring use of antipsychotic therapy (risperdal) 2nd to embolic strokes? TSH wnl B12 level wnl B1 level sent/pending Risperdal was ordered as needed for agitation he currently is forgetful but oriented to basic situation (5) Lytic bone lesions on xray: Plan: CTAchest: New well-defined lytic lesions of the humeral head and with joint effusions left greater than right Orthopedics did see patient and was consulted during admission. Suspected lytic lesions could be from rheumatoid arthritis but recommended bone scan for further characterization Due to concern for potential malignancy bone scan was ordered. Degenerative changes without focal abnormal uptake. Diffuse soft tissue uptake about the left greater than right shoulder joints which may reflect degenerative changes in this patient with known effusions. No additional discrete foci of uptake are seen." No focal abnormal uptake was noted on bone scan and elbow uptake was thought to be more degenerative - subsequent elbow x-ray with prominent elbow joint effusion, smoothly marginated punched-out lesion with overhanging edges suspicious for gouty arthritis. on exam there is a right elbow effusion but there is no warmth erythema or tenderness no pain on range of motion. Ordered uric acid level --orthopedics recommended follow-up with orthopedic oncology as an outpatient SPEP with faint M spikeordered immunofixation, UPEP unremarkable (6) Sinus tachycardia: Plan: can't rule out SVT at the SNF when they found his HR to be in the 170s -- no EKG from that incident no SVT seen on tele this admission sinus tachycardia caused by PE has improved, now mild and intermittent, may transfer to [facility] (7) Acute hypotension: Plan: present at time of admission 2nd to PEs 2nd to dehydration (markedly volume depleted on exam at admission) resolved still on midodrine 2.5 mg 3 times dailyattempt to discontinue and monitor his blood pressure (8) Acute hyponatremia: Plan: 133 at presentation 2nd volume depletion based on his examination resolved s/p IV fluids (9) Rheumatoid arthritis: Plan: Longstanding RA followed with Dr. Mcdonald Patient is continued on sulfasalazine twice daily Does have advanced joint changes consistent with uncontrolled RA. Based on lack of focal uptake on bone scan suspect this may also be the cause of his lesions Patient wishes to follow-up with Dr. Massey [facility] rheumatology moving forward (10) History of duodenal ulcer: Plan: placed on PPI therapy in the setting of needing anticoagulation (11) PFO (patent foramen ovale): (12) Candidiasis of mouth and esophagus: Plan: cont nystatin solution 5ml QID Plan Patients sister Wanda Quijano at # listed in chart - extensive update given 08/01/24. Can also be reached at #[phone] if we can't reach her at # listed in chart PT/OT barbara appreciated dispo -case checker working on SNF placement. medically stable for discharge to senior living facility Admission and Anticipated Discharge Date Admission Date: July 31, 2024 Subjective we had a very long discussion going over the mechanism and physiology of PE he does not have any dyspnea or chest pain at this time, no longer on supplemental oxygen Physical Exam 2 Physical Exam: PHYSICAL EXAMINATION Last 24h vital signs reviewed, see documentation in flowsheet General: comfortable appearing, no distress HEENT: Normocephalic, atraumatic, pupils round and equal, sclerae anicteric, no conjunctival injection, moist mucus membranes Lungs: Normal respiratory effort. Clear to auscultation bilaterally. No RRW Heart: Regular rate and rhythm, no murmurs. No JVD Abdomen: Soft, nontender, nondistended. Bowel sounds present. Extremities: Warm, dry, well-perfused. No extremity edema. Neuro: Alert and oriented x self, hospital, basic situation though asks repetitive questions for short-term memory, face symmetric, moves 4 extremities well Psych: unusual affect and normal behavior Results & Data Results & Data Vital Signs (Past 12 Hours) Vital Signs Temp Pulse Pulse Resp BP Pulse Ox O2 Del Method 08/05/24 15:19 95 H 08/05/24 14:39 97.7 F 109 H 18 113/74 94 Room Air 08/05/24 10:52 97.9 F 92 H 18 101/66 94 Room Air 08/05/24 08:28 Room Air 08/05/24 07:40 98.2 F 99 H 18 122/72 97 Room Air 08/05/24 07:02 87 Laboratory Results 08/01/24 06:11 08/02/24 06:01 PG Care Time/CCT Total # of Minutes Spent Total Time Spent with Patient: I personally spent: 55 minutes today on clinical care activities including: reviewing chart notes and vital signs reviewing labs reviewing studies examining and counseling the patient x 25 minutes discussion with care coordination, bedside RN writing orders documentation Coding Level of Care Code 79255 SUB INP/OBS CARE 3/50MIN Diagnoses Pulmonary embolism I26.99 Acute cor pulmonale presence: unspecified Chronicity: acute Pulmonary embolism type: unspecified Right leg DVT I82.401 Abnormal brain MRI R90.89 Encephalopathy G93.40 Lytic bone lesions on xray M89.8X9 Sinus tachycardia R00.0 Acute hypotension I95.9 Acute hyponatremia E87.1 Rheumatoid arthritis M06.9 History of duodenal ulcer Z87.19 PFO (patent foramen ovale) Q21.12 Candidiasis of mouth and esophagus B37.81; B37.0 (1) Pulmonary embolism Acute cor pulmonale presence: unspecified Chronicity: acute Pulmonary embolism type: unspecified Qualified Code(s): I26.99 - Other pulmonary embolism without acute cor pulmonale
[2024-08-05] MEDS: APIXABAN 5 MG TABLET PO SCH (20:03)
[2024-08-06 08:08] LABS: Hematocrit (blood only) 35.4 % (42.0-52.0); Hemoglobin 11.3 g/dl (14.0-18.0); Mean Corpuscular Hemoglobin 28.1 pg (25.0-34.0); Mean Corpuscular Hgb Conc 31.9 g/dL (32.0-36.0); Mean Corpuscular Volume 88.1 fL (80.0-100.0); Mean Platelet Volume 8.6 fL (9.4-12.4); Platelet Count 308 K/uL (130-400); RDW Coefficient of Variation 14.5 % (11.5-14.5); RDW Standard Deviation 45.1 fL (36.4-46.3); Red Blood Count 4.02 M/uL (4.70-6.10); White Blood Count 7.56 K/ul (4.8-10.8)
[2024-08-06 08:11] LABS: BUN Creatinine Ratio 13.8 (10-20); Calcium 9.2 mg/dl (8.6-10.3); Creatinine Clr Calc Pharmacy 116.1 ml/min; Uric Acid 6.4 mg/dl (2.6-7.2)
--- NOTE | 2024-08-06 18:54 | Hospitalist Progress Note ---
Date of Service August 06, 2024 Assessment & Plan (1) Pulmonary embolism: Plan: 69yo male with long-standing rheumatoid arthritis and recent admission for SVT/delirium/deconditioning/ambulatory dysfunction presents with tachycardia noted at [facility]. He was found to have bilateral PEs. He was also found to have confusion and follow-up MRI was suspicious for left frontal paradoxic embolic stroke in the setting of PE and PFO. He was heparinized then later transitioned to apixaban. During evaluation concern was also raised for lytic bone lesions for which he underwent a bone scan which did not show focal abnormal uptake. Bilateral PE, high clot burden. right popliteal DVT on duplex imaging TTE without RV strain. Troponin negative Placed on heparin GTT. Heparin was continued until bone lesions were further evaluated. Apixaban started evening 08/05 Anticipate lifelong anticoagulation. His father had DVT. (2) Right leg DVT: Plan: Anticoagulation as noted (3) Abnormal brain MRI: Plan: due to pt's presenting encephalopathy (and recent confusion during prior admission earlier this month) MRI was obtained MRIbrain: left frontal lobe abnormality - stroke vs inflammatory process vs other; likely not metastatic disease as there is no post-contrast enhancement. old left cerebellar infarct CTA head/neck negative - Limited echo without thrombus; bubble study positive for PFO Neurology was consulted. Did not recommend LP to rule out infectious or inflammatory process. atypical location could be watershed infarct. Anticoagulation was continued in case of (atypical location) paradoxical embolus from DVT (4) Encephalopathy: Plan: patient had acute encephalopathy during his prior hospital stay requiring use of antipsychotic therapy (risperdal) 2nd to embolic strokes? TSH wnl B12 level wnl B1 level sent/pending Risperdal was ordered as needed for agitation he currently is forgetful but oriented to basic situation (5) Lytic bone lesions on xray: Plan: CTAchest: New well-defined lytic lesions of the humeral head and with joint effusions left greater than right Orthopedics did see patient and was consulted during admission. Suspected lytic lesions could be from rheumatoid arthritis but recommended bone scan for further characterization Due to concern for potential malignancy bone scan was ordered. Degenerative changes without focal abnormal uptake. Diffuse soft tissue uptake about the left greater than right shoulder joints which may reflect degenerative changes in this patient with known effusions. No additional discrete foci of uptake are seen." No focal abnormal uptake was noted on bone scan and elbow uptake was thought to be more degenerative - subsequent elbow x-ray with prominent elbow joint effusion, smoothly marginated punched-out lesion with overhanging edges suspicious for gouty arthritis. on exam there is a right elbow effusion but there is no warmth erythema or tenderness no pain on range of motion. Ordered uric acid level --orthopedics recommended follow-up with orthopedic oncology as an outpatient -uric acid was 6.4 so gout less likely SPEP with faint M spikeordered immunofixation - pending, UPEP unremarkable (6) Sinus tachycardia: Plan: can't rule out SVT at the SNF when they found his HR to be in the 170s -- no EKG from that incident no SVT seen on tele this admission sinus tachycardia caused by PE resolving/resolved (7) Acute hypotension: Plan: present at time of admission 2nd to PEs 2nd to dehydration (markedly volume depleted on exam at admission) resolved midodrine discontinued, remains normotensive (8) Acute hyponatremia: Plan: 133 at presentation 2nd volume depletion based on his examination resolved s/p IV fluids (9) Rheumatoid arthritis: Plan: Longstanding RA followed with Dr. Mcdonald Patient is continued on sulfasalazine twice daily Does have advanced joint changes consistent with uncontrolled RA. Based on lack of focal uptake on bone scan suspect this may also be the cause of his lesions Patient wishes to follow-up with Dr. Massey [facility] rheumatology moving forward - referral made (10) History of duodenal ulcer: Plan: placed on PPI therapy in the setting of needing anticoagulation (11) PFO (patent foramen ovale): (12) Candidiasis of mouth and esophagus: Plan: cont nystatin solution 5ml QID Plan Patients sister Wanda Quijano at # listed in chart - extensive update given 08/01/24. Can also be reached at #[phone] if we can't reach her at # listed in chart PT/OT barbara appreciated dispo -director case management working on SNF placement. medically stable for discharge to shelter facility Admission and Anticipated Discharge Date Admission Date: July 31, 2024 Subjective no chest pain or dyspnea, mild dry cough Physical Exam 2 Physical Exam: PHYSICAL EXAMINATION Last 24h vital signs reviewed, see documentation in flowsheet General: up awake in bed Exam unchanged 08/06 HEENT: Normocephalic, atraumatic, pupils round and equal, sclerae anicteric, no conjunctival injection, moist mucus membranes Lungs: Normal respiratory effort. Clear to auscultation bilaterally. No RRW Heart: Regular rate and rhythm, no murmurs. No JVD Abdomen: Soft, nontender, nondistended. Bowel sounds present. Extremities: Warm, dry, well-perfused. No extremity edema. Neuro: Alert and oriented x self, hospital, basic situation though asks repetitive questions for short-term memory, face symmetric, moves 4 extremities well Psych: unusual affect and normal behavior Results & Data Results & Data Vital Signs (Past 12 Hours) Vital Signs Temp Pulse Resp BP Pulse Ox O2 Del Method 08/06/24 15:57 98.2 F 82 18 121/67 94 Room Air 08/06/24 08:09 98.6 F 77 18 107/68 96 Room Air Laboratory Results 08/06/24 06:57 08/06/24 06:57 PG Care Time/CCT Total # of Minutes Spent Total Time Spent with Patient: Total time spent is greater than 50% in coordination of care (as documented) at patient's floor/unit and/or counseling patient: Coding Level of Care Code 50481 SUB INP/OBS CARE 2/35MIN Diagnoses Pulmonary embolism I26.99 Acute cor pulmonale presence: unspecified Chronicity: acute Pulmonary embolism type: unspecified Right leg DVT I82.401 Abnormal brain MRI R90.89 Encephalopathy G93.40 Lytic bone lesions on xray M89.8X9 Sinus tachycardia R00.0 Acute hypotension I95.9 Acute hyponatremia E87.1 Rheumatoid arthritis M06.9 History of duodenal ulcer Z87.19 PFO (patent foramen ovale) Q21.12 Candidiasis of mouth and esophagus B37.81; B37.0 (1) Pulmonary embolism Acute cor pulmonale presence: unspecified Chronicity: acute Pulmonary embolism type: unspecified Qualified Code(s): I26.99 - Other pulmonary embolism without acute cor pulmonale
--- NOTE | 2024-08-07 18:09 | Hospitalist Progress Note ---
Date of Service August 07, 2024 Assessment & Plan (1) Pulmonary embolism: Plan: 69yo male with long-standing rheumatoid arthritis and recent admission for SVT/delirium/deconditioning/ambulatory dysfunction presents with tachycardia noted at [facility]. He was found to have bilateral PEs. He was also found to have confusion and follow-up MRI was suspicious for left frontal paradoxic embolic stroke in the setting of PE and PFO. He was heparinized then later transitioned to apixaban. During evaluation concern was also raised for lytic bone lesions for which he underwent a bone scan which did not show focal abnormal uptake. Bilateral PE, high clot burden. right popliteal DVT on duplex imaging TTE without RV strain. Troponin negative Placed on heparin GTT. Heparin was continued until bone lesions were further evaluated. Apixaban started evening 08/05 Anticipate lifelong anticoagulation. His father had DVT. (2) Right leg DVT: Plan: Anticoagulation as noted (3) Abnormal brain MRI: Plan: due to pt's presenting encephalopathy (and recent confusion during prior admission earlier this month) MRI was obtained MRIbrain: left frontal lobe abnormality - stroke vs inflammatory process vs other; likely not metastatic disease as there is no post-contrast enhancement. old left cerebellar infarct CTA head/neck negative - Limited echo without thrombus; bubble study positive for PFO Neurology was consulted. Did not recommend LP to rule out infectious or inflammatory process. atypical location could be watershed infarct. Anticoagulation was continued in case of (atypical location) paradoxical embolus from DVT (4) Encephalopathy: Plan: patient had acute encephalopathy during his prior hospital stay requiring use of antipsychotic therapy (risperdal) 2nd to embolic strokes? TSH wnl B12 level wnl B1 level sent/pending No agitation this admission Cognitive status continues to improve. Not forgetful today. (5) Lytic bone lesions on xray: Plan: CTAchest: New well-defined lytic lesions of the humeral head and with joint effusions left greater than right Orthopedics did see patient and was consulted during admission. Suspected lytic lesions could be from rheumatoid arthritis but recommended bone scan for further characterization Due to concern for potential malignancy bone scan was ordered. Degenerative changes without focal abnormal uptake. Diffuse soft tissue uptake about the left greater than right shoulder joints which may reflect degenerative changes in this patient with known effusions. No additional discrete foci of uptake are seen." No focal abnormal uptake was noted on bone scan and elbow uptake was thought to be more degenerative - subsequent elbow x-ray with prominent elbow joint effusion, smoothly marginated punched-out lesion with overhanging edges suspicious for gouty arthritis. on exam there is a right elbow effusion but there is no warmth erythema or tenderness no pain on range of motion. Ordered uric acid level --orthopedics recommended follow-up with orthopedic oncology as an outpatient -uric acid was 6.4 so gout less likely SPEP with faint M spikeordered immunofixation - pending, UPEP unremarkable (6) Sinus tachycardia: Plan: can't rule out SVT at the SNF when they found his HR to be in the 170s -- no EKG from that incident no SVT seen on tele this admission sinus tachycardia caused by PE resolving/resolved (7) Acute hypotension: Plan: present at time of admission 2nd to PEs 2nd to dehydration (markedly volume depleted on exam at admission) resolved midodrine discontinued, remains normotensive (8) Acute hyponatremia: Plan: hypovolemic hyponatremia, Na 133 at presentation resolved s/p IV fluids (9) Rheumatoid arthritis: Plan: Longstanding RA followed with Dr. Mcdonald Patient is continued on sulfasalazine twice daily Does have advanced joint changes consistent with uncontrolled RA. Based on lack of focal uptake on bone scan suspect this may also be the cause of his lesions Patient wishes to follow-up with Dr. Massey [facility] rheumatology moving forward - referral made (10) History of duodenal ulcer: Plan: Occurred in 2014. placed on PPI therapy in the setting of needing anticoagulation (11) PFO (patent foramen ovale): (12) Candidiasis of mouth and esophagus: Plan: cont nystatin solution 5ml QID Plan Patients sister Wanda Quijano at # listed in chart - extensive update given 08/01/24. Can also be reached at #[phone] if we can't reach her at # listed in chart PT/OT barbara appreciated dispo -nurse case manager working on rehab or SNF placement. medically stable for discharge to nursing home facility Admission and Anticipated Discharge Date Admission Date: July 31, 2024 Subjective No chest pain or dyspnea Worried about blood thinner because of bleeding ulcer in 2008. We discussed that benefits of AC strongly outweigh the risks with acute DVT/PE We discussed some insurance/care coordination type concerns He said the OT today told him "You're definitely not ready for discharge" (note recommends rehab), reassured him she probably meant not ready for home alone Physical Exam 2 Physical Exam: PHYSICAL EXAMINATION Last 24h vital signs reviewed, see documentation in flowsheet General: up awake in bed Exam unchanged 08/07 HEENT: Normocephalic, atraumatic, pupils round and equal, sclerae anicteric, no conjunctival injection, moist mucus membranes Lungs: Normal respiratory effort. Clear to auscultation bilaterally. No RRW Heart: Regular rate and rhythm, no murmurs. No JVD Abdomen: Soft, nontender, nondistended. Bowel sounds present. Extremities: Warm, dry, well-perfused. No extremity edema. Severe joint deformities of wrists, hands, feet. These are not warm or inflamed. Neuro: Alert and oriented x self, hospital, short term memory improved compared to 48h ago, face symmetric, moves 4 extremities well Psych: unusual affect and normal behavior Results & Data Results & Data Vital Signs (Past 12 Hours) Vital Signs Temp Pulse Resp BP BP Pulse Ox O2 Del Method 08/07/24 15:42 97.9 F 76 18 94/57 L 94 Room Air 08/07/24 09:11 98.1 F 87 18 98/63 L 92 Room Air Laboratory Results 08/06/24 06:57 08/06/24 06:57 PG Care Time/CCT Total # of Minutes Spent Total Time Spent with Patient: Total time spent is greater than 50% in coordination of care (as documented) at patient's floor/unit and/or counseling patient: Coding Level of Care Code 73491 SUB INP/OBS CARE 08/08MIN Diagnoses Pulmonary embolism I26.99 Acute cor pulmonale presence: unspecified Chronicity: acute Pulmonary embolism type: unspecified Right leg DVT I82.401 Abnormal brain MRI R90.89 Encephalopathy G93.40 Lytic bone lesions on xray M89.8X9 Sinus tachycardia R00.0 Acute hypotension I95.9 Acute hyponatremia E87.1 Rheumatoid arthritis M06.9 History of duodenal ulcer Z87.19 PFO (patent foramen ovale) Q21.12 Candidiasis of mouth and esophagus B37.81; B37.0 (1) Pulmonary embolism Acute cor pulmonale presence: unspecified Chronicity: acute Pulmonary embolism type: unspecified Qualified Code(s): I26.99 - Other pulmonary embolism without acute cor pulmonale
--- NOTE | 2024-08-08 19:19 | Hospitalist Progress Note ---
Date of Service August 08, 2024 Assessment & Plan (1) Pulmonary embolism: Plan: 69yo male with long-standing rheumatoid arthritis and recent admission for SVT/delirium/deconditioning/ambulatory dysfunction presents with tachycardia noted at [facility]. He was found to have bilateral PEs. He was also found to have confusion and follow-up MRI was suspicious for left frontal paradoxic embolic stroke in the setting of PE and PFO. He was heparinized then later transitioned to apixaban. During evaluation concern was also raised for lytic bone lesions for which he underwent a bone scan which did not show focal abnormal uptake. Bilateral PE, high clot burden. right popliteal DVT on duplex imaging TTE without RV strain. Troponin negative Placed on heparin GTT. Heparin was continued until bone lesions were further evaluated. Apixaban started evening 08/05 Anticipate lifelong anticoagulation. His father had DVT. Nothing new to add to plan of care 08/08. Awaiting placement. (2) Right leg DVT: Plan: Anticoagulation as noted (3) Abnormal brain MRI: Plan: due to pt's presenting encephalopathy (and recent confusion during prior admission earlier this month) MRI was obtained MRIbrain: left frontal lobe abnormality - stroke vs inflammatory process vs other; likely not metastatic disease as there is no post-contrast enhancement. old left cerebellar infarct CTA head/neck negative - Limited echo without thrombus; bubble study positive for PFO Neurology was consulted. Did not recommend LP to rule out infectious or inflammatory process. atypical location could be watershed infarct. Anticoagulation was continued in case of (atypical location) paradoxical embolus from DVT (4) Encephalopathy: Plan: patient had acute encephalopathy during his prior hospital stay requiring use of antipsychotic therapy (risperdal) 2nd to embolic strokes? TSH wnl B12 level wnl B1 level normal at 137 No agitation this admission Cognitive status continues to improve. Still with some forgetfulness and tangential but much improved. May be at baseline (5) Lytic bone lesions on xray: Plan: CTAchest: New well-defined lytic lesions of the humeral head and with joint effusions left greater than right Orthopedics did see patient and was consulted during admission. Suspected lytic lesions could be from rheumatoid arthritis but recommended bone scan for further characterization Due to concern for potential malignancy bone scan was ordered. Degenerative changes without focal abnormal uptake. Diffuse soft tissue uptake about the left greater than right shoulder joints which may reflect degenerative changes in this patient with known effusions. No additional discrete foci of uptake are seen." No focal abnormal uptake was noted on bone scan and elbow uptake was thought to be more degenerative - subsequent elbow x-ray with prominent elbow joint effusion, smoothly marginated punched-out lesion with overhanging edges suspicious for gouty arthritis. on exam there is a right elbow effusion but there is no warmth erythema or tenderness no pain on range of motion. Ordered uric acid level --orthopedics recommended follow-up with orthopedic oncology as an outpatient -uric acid was 6.4 so gout less likely SPEP with faint M spikeordered immunofixation - pending, UPEP unremarkable (6) Sinus tachycardia: Plan: can't rule out SVT at the SNF when they found his HR to be in the 170s -- no EKG from that incident no SVT seen on tele this admission sinus tachycardia caused by PE resolved (7) Acute hypotension: Plan: present at time of admission 2nd to PEs 2nd to dehydration (markedly volume depleted on exam at admission) resolved midodrine discontinued, remains normotensive (8) Acute hyponatremia: Plan: hypovolemic hyponatremia, Na 133 at presentation resolved s/p IV fluids (9) Rheumatoid arthritis: Plan: Longstanding RA followed with Dr. Mcdonald Patient is continued on sulfasalazine twice daily Does have advanced joint changes consistent with uncontrolled RA. Based on lack of focal uptake on bone scan suspect this may also be the cause of his lesions Patient wishes to follow-up with Dr. Massey [facility] rheumatology moving forward - referral made (10) History of duodenal ulcer: Plan: Occurred in 2014. placed on PPI therapy in the setting of needing anticoagulation (11) PFO (patent foramen ovale): (12) Candidiasis of mouth and esophagus: Plan: cont nystatin solution 5ml QID Plan Patients sister Wanda Quijano at # listed in chart - extensive update given 08/01/24. Can also be reached at #[phone] if we can't reach her at # listed in chart PT/OT barbara appreciated dispo -rn case manager hospice working on rehab or SNF placement. medically stable for [facility] to [facility] Admission and Anticipated Discharge Date Admission Date: July 31, 2024 Subjective no CP dyspnea or leg swelling talking about his financial, real estate, care coordination concerns Physical Exam Physical Exam: PHYSICAL EXAMINATION Last 24h vital signs reviewed, see documentation in flowsheet General: up awake in bed Exam unchanged 08/08 HEENT: Normocephalic, atraumatic, pupils round and equal, sclerae anicteric, no conjunctival injection, moist mucus membranes Lungs: Normal respiratory effort. Clear to auscultation bilaterally. No RRW Heart: Regular rate and rhythm, no murmurs. No JVD Abdomen: Soft, nontender, nondistended. Bowel sounds present. Extremities: Warm, dry, well-perfused. No extremity edema. Severe joint deformities of wrists, hands, feet. These are not warm or inflamed. Neuro: Alert and oriented x self, hospital, short term memory improved but still forgets things, talkative, conversation not really appropriate to my role as physician, face symmetric, moves 4 extremities Psych: unusual affect and normal behavior Results & Data Results & Data Vital Signs (Past 12 Hours) Vital Signs Temp Pulse Resp BP Pulse Ox O2 Del Method 08/08/24 17:56 97.9 F 88 18 101/69 94 Room Air 08/08/24 09:27 98.2 F 88 18 152/84 H 90 Room Air PG Care Time/CCT Total # of Minutes Spent Total Time Spent with Patient: Total time spent is greater than 50% in coordination of care (as documented) at patient's floor/unit and/or counseling patient: Coding Level of Care Code 98571 SUB INP/OBS CARE 08/08MIN Diagnoses Pulmonary embolism I26.99 Acute cor pulmonale presence: unspecified Chronicity: acute Pulmonary embolism type: unspecified Right leg DVT I82.401 Abnormal brain MRI R90.89 Encephalopathy G93.40 Lytic bone lesions on xray M89.8X9 Sinus tachycardia R00.0 Acute hypotension I95.9 Acute hyponatremia E87.1 Rheumatoid arthritis M06.9 History of duodenal ulcer Z87.19 PFO (patent foramen ovale) Q21.12 Candidiasis of mouth and esophagus B37.81; B37.0 (1) Pulmonary embolism Acute cor pulmonale presence: unspecified Chronicity: acute Pulmonary embolism type: unspecified Qualified Code(s): I26.99 - Other pulmonary embolism without acute cor pulmonale
--- NOTE | 2024-08-09 14:11 | Hospitalist Progress Note ---
Date of Service August 09, 2024 Assessment & Plan (1) Pulmonary embolism: Plan: 69yo male with long-standing rheumatoid arthritis and recent admission for SVT/delirium/deconditioning/ambulatory dysfunction presents with tachycardia noted at [facility]. He was found to have bilateral PEs. He was also found to have confusion and follow-up MRI was suspicious for left frontal paradoxic embolic stroke in the setting of PE and PFO. He was heparinized then later transitioned to apixaban. During evaluation concern was also raised for lytic bone lesions for which he underwent a bone scan which did not show focal abnormal uptake. Bilateral PE, high clot burden. Right popliteal DVT on duplex imaging TTE without RV strain. Troponin negative Placed on heparin GTT. Heparin was continued until bone lesions were further evaluated. Apixaban started evening 08/05 Anticipate lifelong anticoagulation. His father had DVT. Nothing new to add to plan of care 08/09. Awaiting placement. (2) Right leg DVT: Plan: Anticoagulation as noted (3) Abnormal brain MRI: Plan: due to pt's presenting encephalopathy (and recent confusion during prior admission earlier this month) MRI was obtained MRIbrain: left frontal lobe abnormality - stroke vs inflammatory process vs other; likely not metastatic disease as there is no post-contrast enhancement. old left cerebellar infarct CTA head/neck negative - Limited echo without thrombus; bubble study positive for PFO Neurology was consulted. Did not recommend LP to rule out infectious or inflammatory process. atypical location could be watershed infarct. Anticoagulation was continued in case of (atypical location) paradoxical embolus from DVT (4) Encephalopathy: Plan: patient had acute encephalopathy during his prior hospital stay requiring use of antipsychotic therapy (risperdal) 2nd to embolic strokes? TSH wnl B12 level wnl B1 level normal at 137 No agitation this admission Cognitive status continues to improve. Still with some forgetfulness and tangential but much improved. May be at baseline (5) Lytic bone lesions on xray: Plan: CTAchest: New well-defined lytic lesions of the humeral head and with joint effusions left greater than right Orthopedics did see patient and was consulted during admission. Suspected lytic lesions could be from rheumatoid arthritis but recommended bone scan for f urther characterization Due to concern for potential malignancy bone scan was ordered. Degenerative changes without focal abnormal uptake. Diffuse soft tissue uptake about the left greater than right shoulder joints which may reflect degenerative changes in this patient with known effusions. No additional discrete foci of uptake are seen." No focal abnormal uptake was noted on bone scan and elbow uptake was thought to be more degenerative - subsequent elbow x-ray with prominent elbow joint effusion, smoothly marginated punched-out lesion with overhanging edges suspicious for gouty arthritis. on exam there is a right elbow effusion but there is no warmth erythema or tenderness no pain on range of motion. Ordered uric acid level --orthopedics recommended follow-up with orthopedic oncology as an outpatient -uric acid was 6.4 so gout less likely SPEP with faint M spikeordered immunofixation - pending, UPEP unremarkable (6) Sinus tachycardia: Plan: can't rule out SVT at the SNF when they found his HR to be in the 170s -- no EKG from that incident no SVT seen on tele this admission sinus tachycardia caused by PE resolved (7) Acute hypotension: Plan: present at time of admission 2nd to PEs 2nd to dehydration (markedly volume depleted on exam at admission) resolved midodrine discontinued, remains normotensive (8) Acute hyponatremia: Plan: hypovolemic hyponatremia, Na 133 at presentation resolved s/p IV fluids (9) Rheumatoid arthritis: Plan: Longstanding RA followed with Dr. Mcdonald Patient is continued on sulfasalazine twice daily Does have advanced joint changes consistent with uncontrolled RA. Based on lack of focal uptake on bone scan suspect this may also be the cause of his lesions Patient wishes to follow-up with Dr. Massey [facility] rheumatology moving forward - referral made (10) History of duodenal ulcer: Plan: Occurred in 2014. placed on PPI therapy in the setting of needing anticoagulation (11) PFO (patent foramen ovale): (12) Candidiasis of mouth and esophagus: Plan: cont nystatin solution 5ml QID Plan Patients sister Wanda Quijano at # listed in chart - extensive update given 08/01/24. Can also be reached at #[phone] if we can't reach her at # listed in chart PT/OT barbara appreciated dispo -case aide working on rehab or SNF placement. medically stable for discharge to senior living facility Admission and Anticipated Discharge Date Admission Date: July 31, 2024 Tao Muir was moved to a private room today. He is refusing to talk about how he is feeling. Continues to say "We will wait for Dr. Branham". He does not want me to leave his room, but will not answer questions. He repeatedly requested that the door be open despite it already being wide open, kept asking me to sit when I was already sitting. Review of Systems Review of Systems: Unable to obtain. Pt refusing to answer questions. Physical Exam Physical Exam: Pt would not allow physical examination. Stated "I will wait for Dr. Branham" Constitutional: + ill appearing and + thin; no acute dis tress Respiratory: normal respiratory effort Musculoskeletal: Severe joint deformities of the wrist/hands. Neurologic: awake Psychiatric: Orientation: alert Results & Data Results & Data Vital Signs (Past 12 Hours) Vital Signs Temp Pulse Resp BP Pulse Ox O2 Del Method 08/09/24 07:46 36.5 C 81 18 104/59 L 96 Room Air PG Care Time/CCT Total # of Minutes Spent Total Time Spent with Patient: Total time spent is greater than 50% in coordination of care (as documented) at patient's floor/unit and/or counseling patient: Coding [place] [address] SUB INP/OBS CARE 2/35MIN Patient Type Established Medical Decision Making Moderate Complexity Diagnoses Pulmonary embolism I26.99 Acute cor pulmonale presence: unspecified Chronicity: acute Pulmonary embolism type: unspecified Right leg DVT I82.401 Abnormal brain MRI R90.89 Encephalopathy G93.40 Lytic bone lesions on xray M89.8X9 Sinus tachycardia R00.0 Acute hypotension I95.9 Acute hyponatremia E87.1 Rheumatoid arthritis M06.9 History of duodenal ulcer Z87.19 PFO (patent foramen ovale) Q21.12 Candidiasis of mouth and esophagus B37.81; B37.0 (1) Pulmonary embolism Acute cor pulmonale presence: unspecified Chronicity: acute Pulmonary embolism type: unspecified Qualified Code(s): I26.99 - Other pulmonary embolism without acute cor pulmonale
--- NOTE | 2024-08-10 08:13 | Hospitalist Progress Note ---
Date of Service August 10, 2024 Assessment & Plan (1) Pulmonary embolism: Plan: 69yo male with long-standing rheumatoid arthritis and recent admission for SVT/delirium/deconditioning/ambulatory dysfunction presents with tachycardia noted at [facility]. He was found to have bilateral PEs. He was also found to have confusion and follow-up MRI was suspicious for left frontal paradoxic embolic stroke in the setting of PE and PFO. He was heparinized then later transitioned to apixaban. During evaluation concern was also raised for lytic bone lesions for which he underwent a bone scan which did not show focal abnormal uptake. initial hypotension did have midodrine held Bilateral PE, high clot burden. Right popliteal DVT on duplex imaging TTE without RV strain. Troponin negative Placed on heparin GTT. transition to Apixaban started evening 08/05 Anticipate lifelong anticoagulation. His father had DVT. (2) Abnormal brain MRI: Plan: due to pt's presenting encephalopathy (and recent confusion during prior admission earlier this month) MRI was obtained MRIbrain: left frontal lobe abnormality - stroke vs inflammatory process vs other; likely not metastatic disease as there is no post-contrast enhancement. old left cerebellar infarct CTA head/neck negative - Limited echo without thrombus; bubble study positive for PFO Neurology was consulted. Did not recommend LP atypical location could be watershed infarct. Anticoagulation was continued in case of (atypical location) paradoxical embolic stroke from DVT (3) Encephalopathy: Plan: patient had acute encephalopathy during his prior hospital stay requiring use of antipsychotic therapy (risperdal) 2nd to embolic strokes? TSH wnl B12 level wnl B1 level normal at 137 No agitation this admission Cognitive status continues to improve. Still with some forgetfulness and tangential but much improved. May be at baseline (4) Lytic bone lesions on xray: Plan: CTAchest: New well-defined lytic lesions of the humeral head and with joint effusions left greater than right Orthopedics did see patient and was consulted during admission. Suspected lytic lesions could be from rheumatoid arthritis - bone scan for further characterization Degenerative changes without focal abnormal uptake. Diffuse soft tissue uptake about the left greater than right shoulder joints which may reflect degenerative changes in this patient with known effusions. No additional discrete foci of uptake are seen." No focal abnormal uptake was noted on bone scan and elbow uptake was thought to be more degenerative - subsequent elbow x-ray with prominent elbow joint effusion, smoothly marginated punched-out lesion with overhanging edges suspicious for gouty arthritis. on exam there is a right elbow effusion but there is no warmth erythema or tenderness no pain on range of motion. -uric acid was 6.4 so gout less likely SPEP with faint M spikeordered immunofixation - pending, UPEP unremarkable Plan Patients sister Wanda Quijano at # listed in chart - extensive update given 08/01/24. Can also be reached at #[phone] if we can't reach her at # listed in chart sinus tach cannot rule out SVT, none noted on monitor ruddy continue nystatin for one week duodenal ulcers continue ppi Longstanding RA Patient is continued on sulfasalazine twice daily Patient wishes to follow-up with Dr. Massey [facility] rheumatology moving forward - referral made PT/OT barbara appreciated dispo -correctional casework specialist working on rehab or SNF placement. medically stable for discharge to intermediate facility Admission and Anticipated Discharge Date Admission Date: July 31, 2024 Subjective Pt is very tangential and misdirecting during my visit feels he is with slight RA pain is happy with acetaminophen for pain control agreeable to disposition to SNF once bed available Physical Exam Physical Exam: Awake and alert changes of RA to wrists and ankles some chances of venous insufficiency to ankles cardiac is regular lungs are clear Results & Data Results & Data Vital Signs (Past 12 Hours) Vital Signs Temp Pulse Pulse Resp BP Pulse Ox O2 Del Method 08/10/24 07:32 97.7 F 67 18 135/88 97 Room Air 08/09/24 20:12 98.2 F 82 14 109/68 95 Room Air PG Care Time/CCT Total # of Minutes Spent Total Time Spent with Patient: Total time spent is greater than 50% in coordination of care (as documented) at patient's floor/unit and/or counseling patient: Coding Level of Care Code 26555 SUB INP/OBS CARE 2/35MIN Diagnoses Pulmonary embolism I26.99 Acute cor pulmonale presence: unspecified Chronicity: acute Pulmonary embolism type: unspecified Abnormal brain MRI R90.89 Encephalopathy G93.40 Lytic bone lesions on xray M89.8X9 (1) Pulmonary embolism Acute cor pulmonale presence: unspecified Chronicity: acute Pulmonary embolism type: unspecified Qualified Code(s): I26.99 - Other pulmonary embolism without acute cor pulmonale
[2024-08-10] MEDS: DOCUSATE SODIUM/SENNA 50/8.6MG TAB PO SCH (21:14)
[2024-08-11 07:22] VITALS: O2SAT 95
--- NOTE | 2024-08-11 11:42 | Hospitalist Progress Note ---
Date of Service August 11, 2024 Assessment & Plan (1) Pulmonary embolism: Plan: 69yo male with long-standing rheumatoid arthritis and recent admission for SVT/delirium/deconditioning/ambulatory dysfunction presents with tachycardia noted at [facility]. He was found to have bilateral PEs. He was also found to have confusion and follow-up MRI was suspicious for left frontal paradoxic embolic stroke in the setting of PE and PFO. He was heparinized then later transitioned to apixaban. During evaluation concern was also raised for lytic bone lesions for which he underwent a bone scan which did not show focal abnormal uptake. initial hypotension did have midodrine held Bilateral PE, high clot burden. Right popliteal DVT on duplex imaging TTE without RV strain. Troponin negative Placed on heparin GTT. transition to Apixaban started evening 08/05 Anticipate lifelong anticoagulation. His father had DVT. (2) Abnormal brain MRI: Plan: Embolic stroke due to pt's presenting encephalopathy (and recent confusion during prior admission earlier this month) MRI was obtained MRIbrain: left frontal lobe abnormality - stroke vs inflammatory process vs other; likely not metastatic disease as there is no post-contrast enhancement. old left cerebellar infarct CTA head/neck negative - Limited echo without thrombus; bubble study positive for PFO Neurology was consulted. Did not recommend LP atypical location could be watershed infarct. Anticoagulation was continued in case of (atypical location) paradoxical embolic stroke from DVT (3) Encephalopathy: Plan: resolved patient had acute encephalopathy during his prior hospital stay requiring use of antipsychotic therapy (risperdal) 2nd to embolic strokes? TSH wnl B12 level wnl B1 level normal at 137 No agitation this admission Cognitive status continues to improve. Still with some forgetfulness and tangential but much improved. May be at baseline (4) Lytic bone lesions on xray: Plan: CTAchest: New well-defined lytic lesions of the humeral head and with joint effusions left greater than right Orthopedics did see patient and was consulted during admission. Suspected lytic lesions could be from rheumatoid arthritis - bone scan for further characterization Degenerative changes without focal abnormal uptake. Diffuse soft tissue uptake about the left greater than right shoulder joints which may reflect degenerative changes in this patient with known effusions. No additional discrete foci of uptake are seen." No focal abnormal uptake was noted on bone scan and elbow uptake was thought to be more degenerative - subsequent elbow x-ray with prominent elbow joint effusion, smoothly marginated punched-out lesion with overhanging edges suspicious for gouty arthritis. on exam there is a right elbow effusion but there is no warmth erythema or tenderness no pain on range of motion. -uric acid was 6.4 so gout less likely SPEP with faint M spikeordered immunofixation - pending, UPEP unremarkable Plan Patients sister Wanda Quijano at # listed in chart - extensive update given 08/01/24. Can also be reached at #[phone] if we can't reach her at # listed in chart sinus tach cannot rule out SVT, none noted on monitor ruddy continue nystatin for one week duodenal ulcers continue ppi Longstanding RA Patient is continued on sulfasalazine twice daily Patient wishes to follow-[facility] with [facility]ology moving forward - referral made PT/OT barbara appreciated dispo -rn field case manager working on rehab or SNF placement. medically stable for discharge to [facility] facility Admission and Anticipated Discharge Date Admission Date: July 31, 2024 Subjective Pt continues to be tangential and misdirecting during my visit feels his RA pain is well controlled with tylenol and is happy with transition to snf did review right ankle malleolar decubitus, pt typically holds legs crossed and places pressure on that site, given instruction Physical Exam Physical Exam: Awake and alert changes of RA to wrists and ankles some chances of venous insufficiency to ankles cardiac is regular lungs are clear decubitus ulcer seen on right malleolus Results & Data Results & Data Vital Signs (Past 12 Hours) Vital Signs Temp Pulse Resp BP Pulse Ox O2 Del Method 08/11/24 07:20 97.6 F 75 14 110/70 95 Room Air 08/11/24 00:06 Room Air PG Care Time/CCT Total # of Minutes Spent Total Time Spent with Patient: Total time spent is greater than 50% in coordination of care (as documented) at patient's floor/unit and/or counseling patient: Coding Level of Care Code 76787 SUB INP/OBS CARE 2/35MIN Diagnoses Pulmonary embolism I26.99 Acute cor pulmonale presence: unspecified Chronicity: acute Pulmonary embolism type: unspecified Abnormal brain MRI R90.89 Encephalopathy G93.40 Lytic bone lesions on xray M89.8X9 (1) Pulmonary embolism Acute cor pulmonale presence: unspecified Chronicity: acute Pulmonary embolism type: unspecified Qualified Code(s): I26.99 - Other pulmonary embolism without acute cor pulmonale
[2024-08-11 14:32] VITALS: RESP 16; TEMP 98.1
--- NOTE | 2024-08-11 16:26 | Discharge Summary ---
Discharge Summary Date of Service August 11, 2024 Principal Dx & Hospital Course #1 = Principal Diagnosis (1) Pulmonary embolism: 69yo male with long-standing rheumatoid arthritis and recent admission for SVT/delirium/deconditioning/ambulatory dysfunction presents with tachycardia noted at [facility]. He was found to have bilateral PEs. He was also found to have confusion and follow-up MRI was suspicious for left frontal paradoxic embolic stroke in the setting of PE and PFO. He was heparinized then later transitioned to apixaban. During evaluation concern was also raised for lytic bone lesions for which he underwent a bone scan which did not show focal abnormal uptake. initial hypotension did have midodrine held Bilateral PE, high clot burden. Right popliteal DVT on duplex imaging TTE without RV strain. Troponin negative Placed on heparin GTT. transition to Apixaban started evening 08/05 Anticipate lifelong anticoagulation. His father had DVT. (2) Abnormal brain MRI: Embolic stroke due to pt's presenting encephalopathy (and recent confusion during prior admission earlier this month) MRI was obtained MRIbrain: left frontal lobe abnormality - stroke vs inflammatory process vs other; likely not metastatic disease as there is no post-contrast enhancement. old left cerebellar infarct CTA head/neck negative - Limited echo without thrombus; bubble study positive for PFO Neurology was consulted. Did not recommend LP atypical location could be watershed infarct. Anticoagulation was continued in case of (atypical location) paradoxical embolic stroke from DVT (3) Encephalopathy: resolved patient had acute encephalopathy during his prior hospital stay requiring use of antipsychotic therapy (risperdal) 2nd to embolic strokes? TSH wnl B12 level wnl B1 level normal at 137 No agitation this admission Cognitive status continues to improve. Still with some forgetfulness and tangential but much improved. May be at baseline (4) Lytic bone lesions on xray: CTAchest: New well-defined lytic lesions of the humeral head and with joint effusions left greater than right Orthopedics did see patient and was consulted during admission. Suspected lytic lesions could be from rheumatoid arthritis - bone scan for further characterization Degenerative changes without focal abnormal uptake. Diffuse soft tissue uptake about the left greater than right shoulder joints which may reflect degenerative changes in this patient with known effusions. No additional discrete foci of uptake are seen." No focal abnormal uptake was noted on bone scan and elbow uptake was thought to be more degenerative - subsequent elbow x-ray with prominent elbow joint effusion, smoothly marginated punched-out lesion with overhanging edges suspicious for gouty arthritis. on exam there is a right elbow effusion but there is no warmth erythema or tenderness no pain on range of motion. -uric acid was 6.4 so gout less likely SPEP with faint M spikeordered immunofixation - pending, UPEP unremarkable Plan Patients sister Wanda Quijano at # listed in chart - extensive update given 08/01/24. Can also be reached at #[phone] if we can't reach her at # listed in chart sinus tach cannot rule out SVT, none noted on monitor ruddy continue nystatin for one week duodenal ulcers continue ppi Longstanding RA Patient is continued on sulfasalazine twice daily Patient wishes to follow-up with Dr. Massey [facility] rheumatology moving forward - referral made PT/OT barbara appreciated dispo -casework specialist working on rehab or SNF placement. medically stable for discharge to [facility] facility Notes For Next Care Provider pt will need attention paid to the lucencies in his humerus and likely a repeat Ct in about 3 months the small decubitus ulcer on the left medial malleolus will need continued wound care there is an immunofixation spep and upep pending at [place], perhaps a hematology follow up may be helpful Admission HPI Per Admitting Provider 69yo male with history of long-standing rheumatoid arthritis, PUD, and recent hospitalization from 07/17/24 to 07/28/24 for SVT (stay complicated by delirium & placement issues) presents from [facility] due to tachycardia. By report his HR was found to be in the 170s and was given a beta wong for such. His HR continued to be high and thus he was brought to the ER. Upon arrival to [facility] his HR was in the low 100s. His blood pressure was also found to be low. During my assessment the patient was lying flat in bed without any distress. Although he was oriented x 3 and could provide medical history he was confused at times and even paranoid, sometimes asking me "what's that sound out there?" (pointing to the hallway) While taking his review of systems he said "I really don't feel up to doing this" and he asked me to stop asking questions. He denied any dyspnea, chest pain, or LE pain. When asked where he lives locally he said "[place]." He also stated he had been at [facility] "for 2 weeks." By report he has been eating/drinking poorly. He was unable to tell me if he was participating in therapy at [facility]. He then started talking about changing his health insurance. Prior to my assessment Mr Quijano underwent CTA chest which showed b/l PEs as well as lytic lesions in his shoulders b/l. Heparin was initiated in the ER. 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 Activity: Per Instructions section Activity Comment: Per PT/OT and functional limitations Non-emergency contact: Primary Care Provider Call non-emergency contact if: your symptoms worsen Follow-up/Referrals: Steffanie Desai MD [Primary Care Provider] - Diet: Regular Addtl Attending Provider Instructions: continue anticoagulation and consider life long, mackenzie with patent foramen decubitus noticed on medial ankles associated with rheumatoid deformities and braces, continued skin care/wound care Pt has abnormal skeletal imaging, spep immunofixation pending, may benefit from Hematology follow up and or ortho oncology follow up History of SVT but none noted on monitor, consider initial tachycardia from PE Pending Studies at Discharge: No Stand-Alone Forms: My [facility] Skilled Items Patient informed of condition?: Yes DNR: No Discharge Level of Care: Skilled Communicable Disease: No Discharge Prognosis: Stable Lines: None Urinary Catheter: No Medications and DC Order Prescriptions: New Eliquis 5 mg Tablet 5 mg PO BID Qty: 60 5RF sennosides-docusate sodium [Senokot-S] 8.6-50 mg Tablet 1 tab PO BID Qty: 60 0RF pantoprazole 40 mg Tablet,Delayed Release (Dr/Ec) 40 mg PO QAM Qty: 30 0RF Continued lidocaine-prilocaine 2.5-2.5 % cream 1 applic topical .COMPLEX PRN (Reason: for injection site, blood sugar fingersticks) Qty: 30 3RF Rx Instructions: 1 applic topically PRN; sulfasalazine 500 mg tablet 0.5 g PO BID Qty: 60 0RF epinephrine [EpiPen] 0.3 mg/0.3 mL auto-injector 0.3 mg IM UD PRN (Reason: anaphylaxis) Qty: 2 0RF multivitamin [Daily Multi-Vitamin] tablet 1 tab PO DAILY ascorbate calcium (vitamin C) 500 mg tablet 1 gm PO DAILY cholecalciferol (vitamin D3) 2,000 unit capsule 6,000 units PO DAILY vitamin E (dl, acetate) 400 unit capsule 400 units PO DAILY vitamin B complex Tablet 1 tab PO DAILY Changed risperidone 0.5 mg Tablet,Disintegrating 0.5 mg PO BID PRN (Reason: Agitation) Qty: 20 0RF Discontinued flaxseed oil oil 15 - 45 ml miscellaneous DAILY ferrous sulfate 325 mg (65 mg iron) tablet 650 mg PO DAILY Chlorophyll (with alfalfa) 20-100 mg tablet 1 tab PO BID midodrine 2.5 mg Tablet 2.5 mg PO TID@0800,1200,1700 Qty: 90 0RF Discharge Orders: Discharge Order (Routine); Ordered 08/11/24 Ordered By: Fredi Murcia Admission Data Admit Date/Time: 07/31/24 19:54 Attending Provider: Fredi Murcia Admit Provider: Jeff Kelley Primary Care Provider: Steffanie Desai V. Other Providers: Rafi Arnold at [place]; [facility]; [facility]; [facility]; Jeff Kelley; Huey Holt; [facility] Hart; [facility] Stay Data Consultations 07/31/24 18:14 ED Decision to Admit Stat 08/01/24 14:31 Consult Neurology Routine 08/02/24 14:17 Consult Orthopedic Surgery Routine Diagnostic Imagining Performed 07/31/24 16:13 CT angio chest PE protocol Stat 08/01/24 US venous doppler LE BI Routine 08/01/24 09:19 MR brain wo/w con Routine 08/01/24 14:31 CTA head w con [CT angio head w con] Routine CTA neck with con [CT angio neck with con] Routine Pending Results Patient Have Any Pending Studies at Discharge: No Discharge Instructions Given to Patient (Per Discharging Provider) continue anticoagulation and consider life long, mackenzie with patent foramen decubitus noticed on medial ankles associated with rheumatoid deformities and braces, continued skin care/wound care Pt has abnormal skeletal imaging, spep immunofixation pending, may benefit from Hematology follow up and or ortho oncology follow up History of SVT but none noted on monitor, consider initial tachycardia from PE Total Time Total Time Spent Total Time Spent (In Minutes): greater than 30 minutes were required to complete dc Coding Level of Care Code 29440 INP/OBS DISCH >30 MIN Diagnoses Pulmonary embolism I26.99 Acute cor pulmonale presence: unspecified Chronicity: acute Pulmonary embolism type: unspecified Abnormal brain MRI R90.89 Encephalopathy G93.40 Lytic bone lesions on xray M89.8X9
[2024-08-11 16:33] VITALS: BP 96/61; PULSE 82
[2024-08-12] MEDS ORDERED: APIXABAN 5 MG TABLET PO SCH (21:00)
== END 2024-08-11 17:33 | DRG 175 ==
LOC: ED 14:40 → 2S 19:54 → SUATTDRO 19:54 → 2S 22:43 → 3W 08-05 21:57